=== PATIENT | female | born 1985 | race Caucasian/White ===

== ENCOUNTER 2022-03-13 10:58 | Emergency (ER) | payer OTHER, SELFPAY ==
[2022-03-13] VITALS (107 sets, daily range): BP systolic 108–138; BP diastolic 59–80; PULSE 41–52; RESP 0–28; TEMP 36.8; O2SAT 96–100
--- NOTE | 2022-03-13 11:00 | RT.EKG_ITS ---
APPROVED REPORT Exam: Resting ECG Reason for Exam: chest pressure Patient Location: E HR:46 bpm ECG Measurements Heart Rate 46 AXIS PA 124 P 46 QRSd 134 QRS 31 QT 504 T 30 QTc 443 Conclusion Sinus bradycardia...rate< 60 Nonspecific intraventricular conduction delay...QRSd >115mS, not LBBB/RBBB Abnrm R prog, consider ASMI or lead placement...Q >30mS, diminished R, V1-V2 no STEMI I have reviewed and interpreted ECG and agree with software generated interpretation.
--- NOTE | 2022-03-13 11:27 | W.ED.GENAD ---
Discharge Plan Disposition Patient Disposition: HOME Condition: Stable Discharge Details Clinical Impression: Hypokalemia, Adenoma of pituitary Primary Care Provider: Unknown,Unknown ED Provider: Padmini Chiu Discharge Instructions Instructions: Hypokalemia (ED), Pituitary Adenoma (ED) Additional Instructions: Today the potassium was in your blood is very low. Please eat foods with high potassium over the next few days. Also take potassium supplement. Please get in with a primary care provider to follow-up with the labs we have drawn today including prolactin and cortisol level and thyroid panel within the next 1 to 2 weeks, the sooner the better. I spoke with Dr. England with [facility] neurosurgery and their office should give you a call to follow-up and make an appointment. If you do not hear from them within the next week please call to make an appointment. Please return to the ER for any worsening numbness tingling, any worsening neurological symptoms, confusion, Chest pain, lightheadedness, headache not relieved by Tylenol or ibuprofen, or concerns. You are given 50 mg hydrocortisone the IV here today for pending possible low cortisol level. Please discuss this with the primary care provider that you see. Referrals: Pily White DO [OSTEOPATHIC DOCTOR] - 1 week Ni Olguin MD [ [facility] STAFF PHYSICIAN] - 1 week Gurdeep England [ NON-[facility] STAFF PHYSICIAN] - 2 weeks (Please call for follow up appointment) Discharge Data Discharge Date/Time-TO BE ENTERED AT DEPARTURE: 03/13/22 20:16 Medical Decision Making <FRANCESCO Padilla - Last Filed: 03/27/22 11:25> Patient is a pleasant 36 year old history with c/c of chest discomfort, facial tingling, loss of taste, intermittent hand/feet swelling. States swelling began 1 to 2 weeks ago has been quite intermittent with no identifiable exacerbating etiology. She states that yesterday she began having this chest discomfort, not exertionally based, facial tingling and loss of taste. She denies any shortness of breath. Also reports yesterday she began having nausea with 1 episode of small amount of emesis. Has had poor p.o. intake for the past 24 to 48 hours associated with nausea. Denies any personal or family history of cardiac disease. Patient reports that she was diagnosed with benign pituitary adenoma about 6 years ago when she was residing in [place]. Reports that she had a transsphenoidal resection. Pelvic patient had multiple surgical interventions that she did have some postoperative bleeding but when patient got over the initial complications has done well since. She has not needed any hormonal supplementation. She did not follow-up a primary care in this area. States that she is experiencing at this time is very similar to when she had the pituitary adenoma diagnosed last time. Patient is status post tubal ligation, she denies status. She denies any known sick contacts. No recent travel. On exam, patient appears nontoxic. She is bradycardic with a heart rate of 48. Patient does not know her baseline heart rate but feels that it to be normal. She reports that when she had her previous pituitary adenoma she was tachycardic. She denies any palpitations. Her lungs are clear. Assessment bradycardia, normal sinus rhythm with no murmurs rubs or gallops. Her neurologic exam is intact at this time. Her sensation in her face seems to be intact although she feels that the unusual compared to her baseline tingly. No nuchal rigidity, patient does not appear systemically ill. She denies any tick bites but does have multiple areas of bug bites on her lower extremities. Lungs are clear. No swelling or calf tenderness appreciated at this time. With the patient's history, I did consider potential recurrence of her pituitary adenoma. Touch base with radiologist who recommended noncontrast head CT at this time with possible for MR to look further at the pituitary as indicated. Also obtain chest x-ray with her chest discomfort as well as baseline labs. EKG was obtained and reviewed by Dr. Fallon. Patient is in a sinus bradycardic rhythm with a heart rate of 46. Otherwise, no acute ischemic pathology. With the heart rate change as well as her diffuse constitutional symptoms, also considered potential tickborne illness Labs reviewed. CBC reveals no leukocytosis and stable H&H. CMP concerning for critically low potassium of 2.8. Patient reports that hypokalemia is normal for her. Replaced with 40 mEq p.o. and 20 IV. TSH within normal limits, troponin within normal limits. Given the length of time patient been having symptoms, I do not feel that repeat troponin is warranted at this time. Patient is negative for COVID. Contacted by radiologist who advised CT head is concerning for a 11 x 12 mm mass in the sella turcica and recommends MRI. I discussed these recommendations with the patient who is in agreement. At the end of my shift, care transition to Marcela Mackenzie NP with MRI pending. Once MRI has been completed, plan for patient images to be pushed to [facility] and consult with neurosurgery. Concerned that the patient continues to be bradycardic, endorses headache and returning symptoms associated with this pituitary adenoma. <Padmini Chiu NP - Last Filed: 03/13/22 22:44> Patient is a pleasant 36 year old history with c/c of chest discomfort, facial tingling, loss of taste, intermittent hand/feet swelling. States swelling began 1 to 2 weeks ago has been quite intermittent with no identifiable exacerbating etiology. She states that yesterday she began having this chest discomfort, not exertionally based, facial tingling and loss of taste. She denies any shortness of breath. Also reports yesterday she began having nausea with 1 episode of small amount of emesis. Has had poor p.o. intake for the past 24 to 48 hours associated with nausea. Denies any personal or family history of cardiac disease. Patient reports that she was diagnosed with benign pituitary adenoma about 6 years ago when she was residing in [place]. Reports that she had a transsphenoidal resection. Pelvic patient had multiple surgical interventions that she did have some postoperative bleeding but when patient got over the initial complications has done well since. She has not needed any hormonal supplementation. She did not follow-up a primary care in this area. States that she is experiencing at this time is very similar to when she had the pituitary adenoma diagnosed last time. Patient is status post tubal ligation, she denies status. She denies any known sick contacts. No recent travel. On exam, patient appears nontoxic. She is bradycardic with a heart rate of 48. Patient does not know her baseline heart rate but feels that it to be normal. She reports that when she had her previous pituitary adenoma she was tachycardic. She denies any palpitations. Her lungs are clear. Assessment bradycardia, normal sinus rhythm with no murmurs rubs or gallops. Her neurologic exam is intact at this time. Her sensation in her face seems to be intact although she feels that the unusual compared to her baseline tingly. No nuchal rigidity, patient does not appear systemically ill. She denies any tick bites but does have multiple areas of bug bites on her lower extremities. Lungs are clear. No swelling or calf tenderness appreciated at this time. With the patient's history, I did consider potential recurrence of her pituitary adenoma. Touch base with radiologist who recommended noncontrast head CT at this time with possible for MR to look further at the pituitary as indicated. Also obtain chest x-ray with her chest discomfort as well as baseline labs. EKG was obtained and reviewed by Dr. Fallon. Patient is in a sinus bradycardic rhythm with a heart rate of 46. Otherwise, no acute ischemic pathology. With the heart rate change as well as her diffuse constitutional symptoms, also considered potential tickborne illness Labs reviewed. CBC reveals no leukocytosis and stable H&H. CMP concerning for critically low potassium of 2.8. Patient reports that hypokalemia is normal for her. Replaced with 40 mEq p.o. and 20 IV. TSH within normal limits, troponin within normal limits. Given the length of time patient been having symptoms, I do not feel that repeat troponin is warranted at this time. Patient is negative for COVID. Contacted by radiologist who advised CT head is concerning for a 11 x 12 mm mass in the sella turcica and recommends MRI. I discussed these recommendations with the patient who is in agreement. At the end of my shift, care transition to Marcela Mackenzie NP with MRI pending. Once MRI has been completed, plan for patient images to be pushed to [facility] and consult with neurosurgery. Concerned that the patient continues to be bradycardic, endorses headache and returning symptoms associated with this pituitary adenoma. 1739: [place]: Care assumed from provider ( Apoorva MAYA) Please see their initial HPI, PE, and documentation. Discussed patient details and case and pending workup and disposition. Patient is hemodynamically stable, and alert and oriented. At the time of signout awaiting MRI results. We will have images pushed to [facility] and consult with neurology. 1815: [facility] Transfer [facility] Called to speak with Oncology/Neurology. 1905: Spoke with Dr. England with neurosurgery regarding patient case and details he recommends checking a cortisol level, prolactin thyroid panel including a T3-T4 and an endocrine panel. If cortisol level is low he recommends giving 50 mg of hydrocortisone. His office will follow up with patient he recommends yearly MRI for 5 years. Discussed recommendations with patient who verbalized understanding. Discussed home care and strict return instructions. Patient remained hemodynamically stable throughout the remainder of her stay. She was placed on a care management follow-up list for PCP appointment this week ideally for follow-up on lab results and to ensure neurosurgery involvement and follow-up. This text was generated using [employer] system, please disregard any oddities of phrase or misspellings. Imaging Data Radiologic Study: Imaging: MRI Radiologist's impression: FINDINGS: Brain: No restricted diffusion bright brain signal abnormality. No shift. No hemorrhage. No mass. No mass effect. No acute territorial infarction. White matter signal is normally preserved. Brainstem is of normal size and signal. Skull base arterial flow voids appear normal. Pituitary is distorted by a nearly circumscribed infiltrative T1 isointense to jefferson, FLAIR isointense to jefferson matter, and T2 mostly isointense to jefferson matter multilobulated lesion entering the posterior sphenoid sinus and upper clivus. There is a dural component which is laid over the posterior planum of the sphenoid sagittal image 74 series 59338. This is difficult to accurately measure due to heterogeneity of signal but probably extends about 29 mm in AP dimension, 20 mm transverse, and around 24 mm craniocaudad. Pituitary gland is definable on thin cut post-contrast series 39189, measuring about 6.5 mm in height and around 8 mm diameter between coronal images 113-114. This lesion enhances in an intermediate and mildly heterogeneous fashion. By CT there is no chondroid element, or ground-glass opacity to suggest fibrous dysplasia. This might be either macroadenoma or meningioma. Visualized orbits appear normal. No abnormal enhancement of the brain or meninges. Optic chiasm abuts the left suprasellar portion of the lesion sagittal image 70, coronal image 110. The pituitary stalk remains midline around the same coronal image. Cerebral ventricles: Normal. No ventriculomegaly. Bones/joints: Unremarkable. Paranasal sinuses: Obstructeda FLAIR and T2 bright secretion left sphenoid chamber. No acute sinusitis. Mastoid air cells: Normal as visualized. No mastoid effusion. Orbital cavities: Unremarkable. Soft tissues: Unremarkable. IMPRESSION: The central skull base mildly to moderately enhancing lesion infiltrates the posterior sphenoid bone, upper clivus, and sella turcica with distortion of the pituitary gland, gland separable from the same. Macroadenoma or meningioma are the prime differential points, the lesion being relatively isointense to jefferson matter on all pulses with a dural component at the planum of the sphenoid. Thank you for allowing us to participate in the care of your patient. Lab Data Lab results reviewed: Yes I reviewed the patient's lab results. Labs: Laboratory Tests Range/Units 03/13/22 03/13/22 03/13/22 12:05 12:07 12:07 WBC (4.4-10.8) 10^3/uL RBC (3.93-5.22) 10^6/uL Hgb (11.2-15.7) g/dL Hct (36.0-46.0) % MCV (80-95) fL MCH (27.0-33.0) pg MCHC (32.0-36.0) % RDW (11.7-14.6) % Plt Count (130-400) 10^3/uL MPV (8.0-11.0) fL Immature Gran % Neutrophils % Lymphocytes % Monocytes % Eosinophils % Basophils % Nucleated RBC % (0.0-0.3) % Absolute Neutrophils (1.2-6.7) 10^3/uL Absolute Lymphocytes (1.2-3.4) 10^3/uL Absolute Monocytes (0.1-0.8) 10^3/uL Absolute Eosinophils (0.0-0.7) 10^3/uL Absolute Basophils (0.0-0.2) 10^3/uL Sodium (136-145) mmol/L 140 Potassium (3.5-5.1) mmol/L 2.8 L* Chloride (98-107) mmol/L 99 Carbon Dioxide (21.0-32.0) mmol/L 32.8 H Anion Gap (3-11) mmol/L 8.2 BUN (7-18) mg/dL 12 Creatinine (0.55-1.02) mg/dL 0.8 Estimated GFR/1.73 m2 (mL/min/1.73m2) >= 60.00 Glucose (74-106) mg/dL 104 Calcium (8.5-10.1) mg/dL 8.6 Magnesium (1.8-2.4) mg/dL 2.4 Total Bilirubin (0.2-1.0) mg/dL 0.8 AST (15-37) U/L 26 ALT (14-59) U/L 49 Alkaline Phosphatase (46-116) U/L 54 Troponin I (<or=60) ng/L < 50 Total Protein (6.4-8.2) g/dL 7.3 Albumin (3.4-5.0) g/dL 3.5 TSH (0.36-3.74) uIU/mL 0.42 Urine Color (Yellow) Urine Clarity (Clear) Urine pH (5-8) Ur Specific [place] (1.005-1.025) Urine Protein (Negative) mg/dL Urine Ketones (Negative) mg/dL Urine Blood (Negative) Urine Nitrite (Negative) Urine Bilirubin (Negative) Urine Urobilinogen (Up TO 0.2) EU/dL Ur Leukocyte Esterase (Negative) Urine RBC (0-2) HPF Urine WBC (0-5) HPF Ur Epithelial Cells (Negative) HPF Urine Crystals (Negative) HPF Urine Bacteria (Negative) HPF Urine Casts (Negative) LPF Urine Mucus (Negative) Ur Culture Indicated? Urine Glucose (Negative) mg/dL COVID-19 Source Not Applicable SARS-CoV-2 (PCR) (Negative) Negative Influenza Type A (PCR) (Negative) Negative Influenza Type B (PCR) (Negative) Negative RSV (PCR) (Negative) Negative Range/Units 03/13/22 03/13/22 12:07 12:15 WBC (4.4-10.8) 10^3/uL 9.95 RBC (3.93-5.22) 10^6/uL 4.66 Hgb (11.2-15.7) g/dL 13.8 Hct (36.0-46.0) % 40.2 MCV (80-95) fL 86 MCH (27.0-33.0) pg 29.6 MCHC (32.0-36.0) % 34.3 RDW (11.7-14.6) % 12.3 Plt Count (130-400) 10^3/uL 320 MPV (8.0-11.0) fL 10.3 Immature Gran % 0.7 Neutrophils % 79.3 Lymphocytes % 12.1 Monocytes % 7.8 Eosinophils % 0.0 Basophils % 0.1 Nucleated RBC % (0.0-0.3) % 0.0 Absolute Neutrophils (1.2-6.7) 10^3/uL 7.89 H Absolute Lymphocytes (1.2-3.4) 10^3/uL 1.20 Absolute Monocytes (0.1-0.8) 10^3/uL 0.78 Absolute Eosinophils (0.0-0.7) 10^3/uL 0.00 Absolute Basophils (0.0-0.2) 10^3/uL 0.01 Sodium (136-145) mmol/L Potassium (3.5-5.1) mmol/L Chloride (98-107) mmol/L Carbon Dioxide (21.0-32.0) mmol/L Anion Gap (3-11) mmol/L BUN (7-18) mg/dL Creatinine (0.55-1.02) mg/dL Estimated GFR/1.73 m2 (mL/min/1.73m2) Glucose (74-106) mg/dL Calcium (8.5-10.1) mg/dL Magnesium (1.8-2.4) mg/dL Total Bilirubin (0.2-1.0) mg/dL AST (15-37) U/L ALT (14-59) U/L Alkaline Phosphatase (46-116) U/L Troponin I (<or=60) ng/L Total Protein (6.4-8.2) g/dL Albumin (3.4-5.0) g/dL TSH (0.36-3.74) uIU/mL Urine Color (Yellow) Yellow Urine Clarity (Clear) Clear Urine pH (5-8) 7.0 Ur Specific [place] (1.005-1.025) 1.025 Urine Protein (Negative) mg/dL 30 H Urine Ketones (Negative) mg/dL Negative Urine Blood (Negative) Negative Urine Nitrite (Negative) Negative Urine Bilirubin (Negative) Negative Urine Urobilinogen (Up TO 0.2) EU/dL 1.0 H Ur Leukocyte Esterase (Negative) Small H Urine RBC (0-2) HPF Negative Urine WBC (0-5) HPF 0-2 Ur Epithelial Cells (Negative) HPF Moderate Urine Crystals (Negative) HPF Negative Urine Bacteria (Negative) HPF Rare Urine Casts (Negative) LPF 0-2 Hyaline Urine Mucus (Negative) Trace Ur Culture Indicated? No/Sq. Contamination Urine Glucose (Negative) mg/dL Negative COVID-19 Source SARS-CoV-2 (PCR) (Negative) Influenza Type A (PCR) (Negative) Influenza Type B (PCR) (Negative) RSV (PCR) (Negative) HPI <FRANCESCO Padilla - Last Filed: 03/27/22 11:25> General Date/Time Provider Initiated Documentation: 03/13/22 11:27. Limitations to Documentation: no limitations. Information obtained by: patient and RN notes reviewed. History of Present Illness 36 year old F presents to the emergency department with the chief complaint of headaches, intermittent extremity swelling, fatigue, chest pressure, described as moderate and similar to prior episodes (feels like when she had pituitary tumor historically), Quality is described as aching (intermittent), and is localized to the head, chest and abdomen. Patient started experiencing this day(s) and it has been intermittent. No relieving factors improve symptom(s), No exacerbating factors reported . Patient notes chest pain, headaches, loss of appetite, malaise and nausea/vomiting; denies cough, diaphoresis, fever/chills, rash and shortness of breath. Patient did receive the following treatments prior to arrival, none Related Data Allergies Allergy/AdvReac Type Severity Reaction Status Date / Time No Known Allergies Allergy Unverified 03/13/22 19:04 General Stated Complaint: Chest Pain FELA: 3 Review of Systems <FRANCESCO Padilla - Last Filed: 03/27/22 11:25> Constitutional Constitutional: Reports as per HPI, Denies chills, Reports fatigue, Denies fever(s), Denies frequent falls, Reports headache(s) and Denies weakness Eyes Eyes: Reports as per HPI, Denies blurry vision and Denies change in vision ENT Ears, Nose, Mouth, and Throat: Denies vertigo, Reports headache(s) and Denies neck pain Cardiovascular Cardiovascular: Reports as per HPI, Denies lightheadedness, Denies radiating jaw, neck or arm pain, Denies dyspnea and Denies dyspnea on exertion Respiratory Respiratory: Reports as per HPI, Denies chest congestion, Denies cough, Denies dyspnea and Denies dyspnea on exertion Gastrointestinal Gastrointestinal: Reports as per HPI, Denies abdominal pain and Denies change in bowel habits Musculoskeletal Musculoskeletal: Reports as per HPI, Denies back pain, Denies myalgias, Denies muscle cramps, Denies neck pain and Denies numbness Integumentary/Breasts Skin/Breast: Reports as per HPI and Denies rash Neurologic Neurologic: Reports as per HPI, Denies abnormal movements, Denies abnormal speech, Denies behavioral changes, Denies confusion, Denies vertigo, Denies frequent falls, Reports headache(s), Denies localized weakness, Denies numbness, Denies sensory deficit and Denies weakness Psychiatric Psychiatric: Denies behavioral changes and Denies confusion Endocrine Endocrine: Reports fatigue PFSH <FRANCESCO Padilla - Last Filed: 03/27/22 11:25> All Active Problems (Updated 03/13/22 @ 19:43 by Padmini Chiu NP) Hypokalemia (Acute) Adenoma of pituitary (Acute) Social History Smoking risk assessment performed?: No Exam <FRANCESCO Padilla - Last Filed: 03/27/22 11:25> Const General: cooperative, healthy appearing, comfortable, no acute distress, well developed and well groomed Nutritional Appearance: average body habitus and well nourished Orientation: alert, awake and oriented x3 HENMT Head: normal to inspection, no palpable skull fracture, normocephalic and atraumatic Ears: hearing grossly normal bilaterally, external ears normal and TM's normal bilaterally General nose exam: external nose normal Mouth: oral mucosae normal and moist mucous membranes Throat: posterior oropharynx normal Eyes General: appearance normal, both eyes and all related structures Visual Almeida: normal visual almeida by confrontation Alignment and Position: alignment normal Periorbital: periorbital findings normal Eyelids: eyelids normal Sclera: sclerae normal Cornea: corneas normal Pupils: PERRL EOM: EOM intact bilaterally Neck Neck: normal visual inspection, full ROM, no lymphadenopathy and no meningeal signs Resp Effort & Inspection: normal respiratory effort, able to speak in complete sentences and no respiratory distress Auscultation: clear to auscultation bilaterally, no rales, no rhonchi and no wheezes Cardio Rate: regular rate Rhythm: regular rhythm Heart Sounds: S1 normal and S2 normal GI Inspection: normal to inspection and non-distended Palpation: soft, no hepatosplenomegaly, not firm, no guarding, not rigid and nontender Percussion: normal to percussion Auscultation: normal bowel sounds Back/Spine/Pelvis Cervical Spine: normal cervical lordosis and cervical ROM normal Skin General skin exam: no rashes or lesions noted Neuro General: patient alert, patient awake and patient oriented x3 Cranial Nerves: CN's II-XI intact bilaterally Cognition: normal cognition Speech: speech normal Gait: normal gait Motor: muscle tone normal throughout, strength 5/5 throughout, no pronator drift, no movement abnormalities noted and no fasciculations Sensory Exam: no sensory deficits noted Coordination: [id number] test normal and [id number] test normal Extrem General: normal to inspection, capillary refill normal, no pedal edema and no calf tenderness Psych Appearance: grossly normal and well kempt Mental Status: mental status grossly normal Speech and Movement: speech and movement normal Course <FRANCESCO Padilla - Last Filed: 03/27/22 11:25> Vital Signs Vital signs: Vital Signs Temperature 36.8 C 03/13/22 11:06 Pulse 48 L 03/13/22 11:06 Respiratory Rate 18 03/13/22 11:06 Blood Pressure 130/73 03/13/22 11:06 Pulse Oximetry 99 03/13/22 11:06 Temperature 36.8 C 03/13/22 11:06 Temperature Source Temporal Artery Scan 03/13/22 11:06 Pulse 48 L 03/13/22 11:06 Respiratory Rate 18 03/13/22 11:06 Blood Pressure 130/73 03/13/22 11:06 Blood Pressure Position Sitting 03/13/22 11:06 Pulse Oximetry 99 03/13/22 11:06 Oxygen Delivery Method Room Air 03/13/22 11:06 Oxygen Flow Rate 0 03/13/22 11:06 Sign Out <FRANCESCO Padilla - Last Filed: 03/27/22 11:25> Sign Out Data: Sign Out Comment: Care transition to Marcela Mackenzie NP with MRI brain pending. On CT, patient was noted to have a possible pituitary mass. Patient has had history of pituitary adenoma which was surgically resected about 6 years ago in [place]. Patient is hypokalemic with a potassium of 2.8, was given 40 p.o. and 20 IV. Bradycardic in the 40s, unknown what patient's baseline is. Last updated by Apoorva Gordon PA at 03/13/22 17:30
--- NOTE | 2022-03-13 11:45 | DI.CT_ITS ---
Exam(s) CT HEAD WO EXAM: CT HEAD WO CLINICAL HISTORY: hx of pituitary adenoma, GARCES. TECHNIQUE: Imaging Protocol: Axial computed tomography images with coronal and sagittal reformatted images were created and reviewed COMPARISON: CR XR CHEST 2V PA LATERAL from 03/13/2022 FINDINGS: There are no skull fractures nor fluid in the visualized paranasal sinuses. There is a large mass in the sella and with erosion through the floor into the sphenoid sinus,. Ther e is also thinning of the dorsum sella. The mass extends into the suprasellar cistern. Remainder of the brain appears unremarkable. No ventriculomegaly. No shift. IMPRESSION: Pituitary fossa mass as described above. Dedicated pituitary fossa MRI is recommend RADIATION DOSE DELIVERED: 618.8mGy.cm Total DLP DATA REPOSITORY: All CT scans at this facility are submitted to the National Radiology Data Registry (NRDR) Dose Index Registry (DIR) with the [employer] (ACR). RADIATION OPTIMIZATION: All CT scans at this facility use at least one of these dose optimization te chniques: automated exposure control; mA and/or kV adjustment per patient size (includes targeted exa ms where dose is matched to clinical indication); or iterative reconstruction.
--- NOTE | 2022-03-13 11:45 | DI.RAD_ITS ---
Exam(s) XR CHEST 2V PA LATERAL EXAM: XR CHEST 2V PA LATERAL CLINICAL HISTORY: CP. TECHNIQUE: 2D digital imaging was performed. COMPARISON: No exams were available for comparison FINDINGS: 2 views: Heart size is normal. The mediastinum is not widened. Lungs are clear. No infiltrates nor pleural effusions. IMPRESSION: No acute pulmonary findings. DATA REPOSITORY: RADIATION DOSE DELIVERED:
[2022-03-13 12:18] LABS: Abs Immature Grans 0.07 10^3/uL (0.0-0.06); Absolute Basophil Count 0.01 10^3/uL (0.0-0.2); Absolute Monocyte Count 0.78 10^3/uL (0.1-0.8); Absolute Neutrophil Count 7.89 10^3/uL (1.2-6.7); Basophils % 0.1; HCT 40.2 % (36.0-46.0); HGB 13.8 g/dL (11.2-15.7); Immature Grans % 0.7; Lymphocytes % 12.1; MCH 29.6 pg (27.0-33.0); MCHC 34.3 % (32.0-36.0); MCV 86 fL (80-95); MPV 10.3 fL (8.0-11.0); Monocytes % 7.8; Neutrophils % 79.3; Platelet Count 320 10^3/uL (130-400); RBC 4.66 10^6/uL (3.93-5.22); RDW 12.3 % (11.7-14.6); RDW-SD 38.3 fL; WBC 9.95 10^3/uL (4.4-10.8)
[2022-03-13 12:27] LABS: Bilirubin Negative (Negative); Blood Negative (Negative); Clarity Clear (Clear); Glucose Negative (Negative); Ketones Negative (Negative); Leukocyte Esterase Small (Negative); Nitrite Negative (Negative); Specific Gravity 1.025 (1.005-1.025)
[2022-03-13] MEDS: Normal Saline 1,000 ML 1000 ML IV (12:32)
[2022-03-13 12:37] LABS: ALT 49 U/L (14-59); AST 26 U/L (15-37); Albumin 3.5 g/dL (3.4-5.0); Alkaline Phosphatase 54 U/L (46-116); Anion Gap 8.2 mmol/L (3-11); BUN 12 mg/dL (7-18); Bilirubin, Total 0.8 mg/dL (0.2-1.0); CO2 32.8 mmol/L (21.0-32.0); CREATININE 0.8 mg/dL (0.55-1.02); Calcium 8.6 mg/dL (8.5-10.1); Chloride 99 mmol/L (98-107); Glucose 104 mg/dL (74-106); Magnesium 2.4 mg/dL (1.8-2.4); Sodium 140 mmol/L (136-145); Total Protein 7.3 g/dL (6.4-8.2); Troponin I < 50 ng/L (<or=60)
[2022-03-13 12:38] LABS: Bacteria Rare HPF (Negative); C & S Indicated? No/Sq. Contamination; Casts 0-2 Hyaline LPF (Negative); Crystals Negative HPF (Negative); Epithelial Cells Moderate HPF (Negative); Mucus Trace (Negative); RBC Negative HPF (0-2); WBC 0-2 HPF (0-5)
[2022-03-13 12:39] LABS: Potassium 2.8 mmol/L (3.5-5.1)
[2022-03-13] MEDS: Ondansetron 4 MG/2 ML VIAL IVP (12:41)
[2022-03-13 12:48] LABS: TSH (W/Ref FT4) 0.42 uIU/mL (0.36-3.74)
--- NOTE | 2022-03-13 13:15 | DI.MRI_ITS ---
Exam(s) MR BRAIN PITUITARY WO/W EXAM: MR BRAIN PITUITARY WO/W CLINICAL HISTORY: mass, facial tingling, taste change, swelling TECHNIQUE: Multiplanar multisequence MRI of the brain was performed. Both noninfused and contrast i nfused sequences were performed. IV Contrast injected was cc Dotarem. COMPARISON: No exams were available for comparison FINDINGS: CEREBRAL PARENCHYMA: No evidence of intracranial hemorrhage, mass effect nor shift of midline structu re. No extraaxial fluid collections. Ventricles are not enlarged nor shifted. There is no significant focal signal abnormality in the cerebellar hemispheres nor within the [place], m idbrain, and thalami. There is no abnormal signal abnormality in the periventricular white matter. However, there is a large heterogeneous mass occupying entire sella turcica with extension into the s phenoid sinus, clivus-basiocciput and with extension into the cavernous sinuses. Mass extends into t he suprasellar cistern but not to the level of the optic chiasm. Is difficult to identify the pituit west gland separate from this mass. This mass measures approximately 3.4 cm wide by 2.4 cm craniocaud al by 3.2 cm AP FLOW VOIDS: The expected flow void are noted. No evidence of obvious aneurysm nor obvious vascular ma lformation. PARANASAL SINUSES: Mucosal thickening is noted in both maxillary sinuses without fluid levels therein . Frontal sinuses are clear as are the anterior ethmoidal air cells. The sphenoid sinus is filled b y this mass ORBITS: Most anterior aspect mass extends above the level of the orbital foramens. No extension lane g the optic nerves. IMPRESSION: 1. Large mass having epicenter in pituitary fossa with extension superiorly, inferiorly into the sphe noid sinus and clivus, laterally into the both cavernous sinuses, and superiorly into the suprasellar cistern (but not to the level of the optic chiasm). This is a complex heterogeneous mass which does enhance following contrast injection. There appears to be some involvement of the cavernous sinuses bilaterally. Apparently this patient has had previous remote trans-sphenoidal surgery for macro mary noma. First consideration is for recurrence of the original neoplasm. 2. No other intracranial findings. No ventriculomegaly. No evidence of acute ischemic event nor hem orrhage. DATA REPOSITORY:
[2022-03-13 13:38] LABS: COVID-19 PCR Negative (Negative); Influenza A PCR Negative (Negative); Influenza B PCR Negative (Negative); RSV PCR Negative (Negative)
[2022-03-13] MEDS: POTASSIUM CHLORIDE 20 MEQ/100 ML BAG 50 MEQ IVPB (13:42)
[2022-03-13] MEDS: Potassium Chloride 20 MEQ TABCR 40 MEQ PO (13:42)
[2022-03-13] MEDS: Normal Saline Flush 10 ML SYR IVP (15:54)
--- NOTE | 2022-03-13 17:20 | DI.VRAD_ITS ---
PROCEDURE INFORMATION: Exam: MR Head Without and With Contrast Exam date and time: 03/13/2022 3:46 PM Age: 36 years old Clinical indication: Other: Facial tingling, taste change, swelling; Prior surgery; Surgery type: Pituitary TECHNIQUE: Imaging protocol: Magnetic resonance imaging of the head without and with contrast. Contrast material: DOTAREM; Contrast volume: 16 ml; Contrast route: INTRAVENOUS (IV); COMPARISON: CT HEAD WO 03/13/2022 12:58 PM FINDINGS: Brain: No restricted diffusion bright brain signal abnormality. No shift. No hemorrhage. No mass. No mass effect. No acute territorial infarction. White matter signal is normally preserved. Brainstem is of normal size and signal. Skull base arterial flow voids appear normal. Pituitary is distorted by a nearly circumscribed infiltrative T1 isointense to jefferson, FLAIR isointense to jefferson matter, and T2 mostly isointense to jefferson matter multilobulated lesion entering the posterior sphenoid sinus and upper clivus. There is a dural component which is laid over the posterior planum of the sphenoid sagittal image 74 series 60997. This is difficult to accurately measure due to heterogeneity of signal but probably extends about 29 mm in AP dimension, 20 mm transverse, and around 24 mm craniocaudad. Pituitary gland is definable on thin cut post-contrast series 44098, measuring about 6.5 mm in height and around 8 mm diameter between coronal images 113-114. This lesion enhances in an intermediate and mildly heterogeneous fashion. By CT there is no chondroid element, or ground-glass opacity to suggest fibrous dysplasia. This might be either macroadenoma or meningioma. Visualized orbits appear normal. No abnormal enhancement of the brain or meninges. Optic chiasm abuts the left suprasellar portion of the lesion sagittal image 70, coronal image 110. The pituitary stalk remains midline around the same coronal image. Cerebral ventricles: Normal. No ventriculomegaly. Bones/joints: Unremarkable. Paranasal sinuses: Obstructeda FLAIR and T2 bright secretion left sphenoid chamber. No acute sinusitis. Mastoid air cells: Normal as visualized. No mastoid effusion. Orbital cavities: Unremarkable. Soft tissues: Unremarkable. IMPRESSION: The central skull base mildly to moderately enhancing lesion infiltrates the posterior sphenoid bone, upper clivus, and sella turcica with distortion of the pituitary gland, gland separable from the same. Macroadenoma or meningioma are the prime differential points, the lesion being relatively isointense to jefferson matter on all pulses with a dural component at the planum of the sphenoid. Dictated and Authenticated by: Satya Ball MD. Ordering:ZAHRA Guerin MD
--- NOTE | 2022-03-13 19:45 | NUR.NOTE ---
Referral to Care Management to establish pcp within the next week or two for Pituiatary tumor, hypokalemia. Sooner would be better than later.Nursing Note:
[2022-03-13] MEDS: Hydrocortisone SOD SUC. 100 MG VIAL 50 MG IVP (20:04)
[2022-03-13 23:34] LABS: LH 3.3 mIU/mL (See Note)
[2022-03-13 23:37] LABS: Prolactin 1.5 ng/mL (See Note)
[2022-03-13 23:39] LABS: FSH 5.3 mIU/mL (See Note)
--- NOTE | 2022-03-14 09:19 | NUR.NOTE ---
Nursing Note: Dr. England , Neurosurgery [facility], called for the phone numbers of patient and contacts. I gave him this information. Gala Bang nursing animal trainer supervisor aware.
[2022-03-14 11:05] LABS: Lyme Ab w Rflx to Lyme Confirm Negative (Negative)
--- NOTE | 2022-03-14 11:38 | PDOC.ERCMACT ---
- If Service Date Differs Date of service: 03/14/22 Time of Service: 11:38 Care Management Activity Note Amy is seen in the ED for hypokalemia and a pituitary adenoma. At the request of ED provider, HIRAL coordinates a referral to SERGE Lindsay, of [facility], on-call provider, to assist Amy in obtaining a follow up appointment and in establishing care with a PCP. She has [employer] for insurance.
[2022-03-14 17:44] LABS: T3,Free 2.5 pg/mL (2.8-5.3)
[2022-03-15 00:51] LABS: Anaplasma phagocytophilum Negative (Negative); B. miyamotoi PCR Negative (Negative); Babesia divergens/MO-1 Negative (Negative); Babesia duncani Negative (Negative); Babesia microti Negative (Negative); Ehrlichia chaffeensis Negative (Negative); Ehrlichia ewingii/canis Negative (Negative); Ehrlichia muris eauclairensis Negative (Negative)
[2022-03-17 17:53] LABS: IGF-1, LC/MS, S 174 ng/mL (59-279); Z-score 0.67 SD
[2022-03-23 11:59] LABS: Misc Referral (MAYO) See Comments
== END 2022-03-13 20:16 | disposition home or self-care (01) ==
PROVIDERS: Physician Assistant; Emergency Provider Registered Nurse Emergency
DX: E87.6 Hypokalemia (principal); D35.2 Benign neoplasm of pituitary gland; R20.2 Paresthesia of skin; R51.9 Headache, unspecified; R07.9 Chest pain, unspecified; R07.89 Other chest pain; R43.9 Unspecified disturbances of smell and taste
CPT/HCPCS: 36415; 70553; 80053; 81025; 82530; 82533; 87637; 87798; 93005; 96361; 96365; 96366; 96375; 99284; 99285; 70450; 71046; 81003; 81015; 83001; 83002; 83735; 84146; 84305; 84436; 84443; 84481; 84484; 85025; 86618; 93010; J1720; J2405; J3480

== ENCOUNTER 2022-05-25 10:13 | Outpatient (REF) | payer OTHER, SELFPAY ==
[2022-05-25 12:04] LABS: Anion Gap 9.1 mmol/L (3-11); BUN 9 mg/dL (7-18); CO2 28.9 mmol/L (21.0-32.0); Calcium 9.5 mg/dL (8.5-10.1); Chloride 102 mmol/L (98-107); Estimated GFR 75.34 (mL/min/1.73m2); FREE T4 1.04 ng/dL (0.76-1.46); Glucose 86 mg/dL (74-106); Potassium 4.4 mmol/L (3.5-5.1); Sodium 140 mmol/L (136-145); TSH 1.43 uIU/mL (0.36-3.74)
[2022-05-25 20:21] LABS: Estradiol 146 pg/mL (See Note)
[2022-05-25 20:41] LABS: FSH 3.6 mIU/mL (See Note); LH 7.5 mIU/mL (See Note); Prolactin 4.7 ng/mL (See Note)
[2022-05-26 17:51] LABS: Adrenocorticotropic Hormone, P 77 pg/mL
[2022-05-31 17:16] LABS: IGF-1, LC/MS, S 279 ng/mL (59-279); Z-score 1.96 SD
[2022-06-05 17:26] LABS: 25-Hydroxy D Total 25 ng/mL; 25-Hydroxy D2 <4.0 ng/mL; 25-Hydroxy D3 25 ng/mL
== END 2022-05-25 10:14 | disposition home or self-care (01) ==
LOC: LBN 10:13
PROVIDERS: Visit Provider Student in an Organized Health Care Education/Training Program
DX: Z86.39 Personal history of other endocrine, nutritional and metabolic disease (principal)
CPT/HCPCS: 80048; 82306; 82533; 82024; 82670; 83001; 83002; 84146; 84305; 84439; 84443

== ENCOUNTER 2023-01-31 09:56 | Emergency (ER) | payer OTHER, SELFPAY ==
[2023-01-31 10:00] VITALS: BP 130/98; PULSE 100; RESP 15; TEMP 36.8; O2SAT 98
[2023-01-31 10:12] VITALS: RESP 15
[2023-01-31 10:22] LABS: Bilirubin Small (Negative); Blood Negative (Negative); Clarity Sl Cloudy (Clear); Glucose Negative (Negative); Ketones Trace mg/dL (Negative); Leukocyte Esterase Small (Negative); Nitrite Positive (Negative); Urobilinogen 0.2 mg/dL (Up to 0.2); pH 5.5 (5-8)
--- NOTE | 2023-01-31 10:30 | DI.CT_ITS ---
Exam(s) CT HEAD WO EXAM: CT HEAD WO CLINICAL HISTORY: hx of pituitary tumor with resection 04/04/22cameron. TECHNIQUE: Imaging Protocol: Axial computed tomography images with coronal and sagittal reformatted images were created and reviewed COMPARISON: CT CT HEAD WO from 03/13/2022 MR MR BRAIN PITUITARY WO/W from 03/13/2022 FINDINGS: Ventricles and Extra axial spaces: Normal in size and morphology for the patient's age. Hemorrhage: None. Cerebral parenchyma: Normal. Midline shift: None. Brainstem/Cerebellum: Normal. Calvarium: Normal. Visualized Paranasal sinuses: Small amount of lobulated material is seen in the sphenoid sinuses. Pr eviously noted pituitary mass extended into the sphenoid sinuses. The findings could represent simpl e mucous retention over residual or current mass is not excluded. No definite adjacent bony destruct ion. Previously noted destruction of the superior wall of the sphenoid sinuses are arm again noted. The sella is expanded but there is no visible sellar mass. Mastoids: Clear. Soft Tissues: Unremarkable. IMPRESSION: No acute intracranial process. Previously noted sellar expansion and erosion of the floor of the sella/sphenoid sinuses again noted. Small amount of material seen in the sphenoid sinuses which could represent mucous retention howev er is visual or current mass is not excluded. RADIATION DOSE DELIVERED: 620.34mGy.cm Total DLP DATA REPOSITORY: All CT scans at this facility are submitted to the National Radiology Data Registry (NRDR) Dose Index Registry (DIR) with the [employer] (ACR). RADIATION OPTIMIZATION: All CT scans at this facility use at least one of these dose optimization te chniques: automated exposure control; mA and/or kV adjustment per patient size (includes targeted exa ms where dose is matched to clinical indication); or iterative reconstruction.
[2023-01-31 10:56] LABS: Absolute Basophil Count 0.07 10^3/uL (0.0-0.2); Absolute Eosinophil Count 0.24 10^3/uL (0.0-0.7); Absolute Lymphocyte Count 2.87 10^3/uL (1.2-3.4); Absolute Monocyte Count 0.59 10^3/uL (0.1-0.8); Absolute Neutrophil Count 4.25 10^3/uL (1.2-6.7); Basophils % 0.9; HCT 38.7 % (36.0-46.0); HGB 12.6 g/dL (11.2-15.7); Immature Grans % 1.2; Lymphocytes % 35.3; MCH 28.3 pg (27.0-33.0); MCHC 32.6 % (32.0-36.0); MCV 87 fL (80-95); MPV 9.7 fL (8.0-11.0); Monocytes % 7.3; Neutrophils % 52.3; Platelet Count 399 10^3/uL (130-400); RBC 4.46 10^6/uL (3.93-5.22); RDW 12.8 % (11.7-14.6); RDW-SD 40.5 fL; WBC 8.12 10^3/uL (4.4-10.8)
[2023-01-31 11:00] LABS: Bacteria Few HPF (Negative); C & S Indicated? No/Sq. Contamination; Casts 0-2 Coarse Granular LPF (Negative); Crystals Negative HPF (Negative); Epithelial Cells Many HPF (Negative); Mucus Moderate (Negative); Other Cells Negative (Negative); RBC 0-2 HPF (0-2)
[2023-01-31 11:35] LABS: ALT 44 U/L (14-59); AST 17 U/L (15-37); Albumin 3.4 g/dL (3.4-5.0); Alkaline Phosphatase 97 U/L (46-116); Anion Gap 7.5 mmol/L (3-11); BUN 5 mg/dL (7-18); Bilirubin, Total 0.3 mg/dL (0.2-1.0); CO2 31.5 mmol/L (21.0-32.0); CREATININE 0.9 mg/dL (0.55-1.02); Calcium 8.8 mg/dL (8.5-10.1); Chloride 104 mmol/L (98-107); Estimated GFR 84.97 (mL/min/1.73m2); Glucose 102 mg/dL (74-106); Potassium 3.9 mmol/L (3.5-5.1); Sodium 143 mmol/L (136-145); TSH (W/Ref FT4) 1.52 uIU/mL (0.36-3.74); Total Protein 7.9 g/dL (6.4-8.2)
--- NOTE | 2023-01-31 12:09 | NUR.NOTE ---
Nursing Note: PT needs PCP follow up for parastegia & outpatient MRI. Leyda, ED
[2023-01-31 12:15] VITALS: BP 135/85; PULSE 74; RESP 16; TEMP 36.4; O2SAT 99
[2023-01-31 13:00] LABS: Epithelial Cells Moderate HPF (Negative); WBC 20-50 HPF (0-5)
[2023-01-31 13:01] LABS: Bacteria Moderate HPF (Negative); Crystals Negative HPF (Negative); Mucus Moderate (Negative); Other Cells Few Renal (Negative)
[2023-01-31 13:02] LABS: C & S Indicated? No/Sq. Contamination
--- NOTE | 2023-02-01 17:27 | W.ED.GENAD ---
Discharge Plan Disposition Patient Disposition: Home Discharge Details Clinical Impression: Dysuria Primary Care Provider: Nate Tariq ED Provider: Tanna Lozano Home Meds and New Rx's Prescriptions: New nitrofurantoin monohyd/m-cryst [Macrobid] 100 mg capsule 100 mg PO BID Qty: 10 0RF Rx Instructions: must administer with a meal/food Discharge Instructions Additional Instructions: Take antibiotics as prescribed Yogurt daily while on antibiotic Please call your primary care physician as you will likely need an appointment before your scheduled MRI and diagnostic blood work post pituitary adenoma Have given you prescription for Macrobid, this will treat a urinary tract infection, or pending urine culture at this time Please return immediately should you have new or worsening complaints Referrals: Nate Tariq MD [Primary Care Provider] - 2 days Discharge Data Discharge Date/Time-TO BE ENTERED AT DEPARTURE: 01/31/23 17:24 Medical Decision Making 37-year-old female with complex medical history including that of pituitary adenoma resection approximately year prior to arrival with intermittent recurrent symptoms CT brain does not show evidence of significant acute abnormality, 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 HPI Narrative: This 37-year-old female presents with report of paresthesias to face and urinary frequency and burning. She states she status post pituitary adenoma resection approximately year ago and she had paresthesias on her face. Denies any other neurological changes Sexually active monogamous with her . Denies any fever or chills. Denies any flank pain or chance of . States her symptoms have been present for the past several weeks intermittently. Related Data Home Medications Medication Instructions Recorded Confirmed nitrofurantoin 100 mg PO BID #10 caps 01/31/23 monohydrate/macrocrystals 100 mg capsule (Macrobid) Previous Rx's Medication Instructions Recorded nitrofurantoin 100 mg PO BID #10 caps 01/31/23 monohydrate/macrocrystals 100 mg capsule (Macrobid) Allergies Allergy/AdvReac Type Severity Reaction Status Date / Time No Known Allergies Allergy Unverified 01/31/23 10:04 General Stated Complaint: GenMedical FELA: 3 PFSH All Active Problems (Updated 01/31/23 @ 12:11 by FRANCESCO Ford) Dysuria (Acute) Social History Smoking/Tobacco Use Status: Never Smoking risk assessment performed?: Yes Alcohol Intake: never Drug use: Rarely Substance use type: does not use Do you feel safe at home: Yes Do you feel safe in your relationship?: Yes Exam Narrative Exam Narrative: Patient is calm and cooperative, alert and oriented, pupils equal round reactive to light and accommodation, extraocular muscles intact Lungs clear to auscultation, cardiac rate rhythm regular, no abdominal tenderness, no flank tenderness, no obvious rashes or lesions, alert and oriented x4, cranial nerves II through XII intact, no pronator drift, Course Vital Signs Vital signs: Vital Signs Temperature 36.8 C 01/31/23 10:00 Pulse 100 H 01/31/23 10:00 Respiratory Rate 15 01/31/23 10:00 Blood Pressure 130/98 H 01/31/23 10:00 Pulse Oximetry 98 01/31/23 10:00 Temperature 36.4 C 01/31/23 12:15 Pulse 74 01/31/23 12:15 Respiratory Rate 16 01/31/23 12:15 Respiratory Effort Normal 01/31/23 10:12 Respiratory Depth Normal 01/31/23 10:12 Respiratory Pattern Normal 01/31/23 10:12 Blood Pressure 135/85 01/31/23 12:15 Blood Pressure Position Sitting 01/31/23 10:00 Pulse Oximetry 99 01/31/23 12:15 Oxygen Delivery Method Room Air 01/31/23 10:00 Oxygen Flow Rate 0 01/31/23 10:00 Pain Level 0 01/31/23 10:00 Lab/Test Results Lab/Test Results: Laboratory Tests Range/Units 01/31/23 01/31/23 01/31/23 10:06 10:45 10:45 WBC (4.4-10.8) 10^3/uL 8.12 RBC (3.93-5.22) 10^6/uL 4.46 Hgb (11.2-15.7) g/dL 12.6 Hct (36.0-46.0) % 38.7 MCV (80-95) fL 87 MCH (27.0-33.0) pg 28.3 MCHC (32.0-36.0) % 32.6 RDW (11.7-14.6) % 12.8 Plt Count (130-400) 10^3/uL 399 MPV (8.0-11.0) fL 9.7 Immature Gran % 1.2 Neutrophils % 52.3 Lymphocytes % 35.3 Monocytes % 7.3 Eosinophils % 3.0 Basophils % 0.9 Nucleated RBC % (0.0-0.3) % 0.0 Absolute Neutrophils (1.2-6.7) 10^3/uL 4.25 Absolute Lymphocytes (1.2-3.4) 10^3/uL 2.87 Absolute Monocytes (0.1-0.8) 10^3/uL 0.59 Absolute Eosinophils (0.0-0.7) 10^3/uL 0.24 Absolute Basophils (0.0-0.2) 10^3/uL 0.07 Sodium (136-145) mmol/L 143 Potassium (3.5-5.1) mmol/L 3.9 Chloride (98-107) mmol/L 104 Carbon Dioxide (21.0-32.0) mmol/L 31.5 Anion Gap (3-11) mmol/L 7.5 BUN (7-18) mg/dL 5 L Creatinine (0.55-1.02) mg/dL 0.9 Est GFR (CKD-EPI 2020) (mL/min/1.73m2) 84.97 Glucose (74-106) mg/dL 102 Calcium (8.5-10.1) mg/dL 8.8 Magnesium (1.8-2.4) mg/dL 2.0 Total Bilirubin (0.2-1.0) mg/dL 0.3 AST (15-37) U/L 17 ALT (14-59) U/L 44 Alkaline Phosphatase (46-116) U/L 97 Total Protein (6.4-8.2) g/dL 7.9 Albumin (3.4-5.0) g/dL 3.4 TSH (0.36-3.74) uIU/mL 1.52 Urine Color (Yellow) Yellow Urine Clarity (Clear) Sl Cloudy Urine pH (5-8) 5.5 Ur Specific Sheridan (1.005-1.025) 1.020 Urine Protein (Negative) mg/dL 30 H Urine Ketones (Negative) mg/dL Trace H Urine Blood (Negative) Negative Urine Nitrite (Negative) Positive H Urine Bilirubin (Negative) Small H Urine Urobilinogen (Up to 0.2) mg/dL 0.2 Ur Leukocyte Esterase (Negative) Small H Urine RBC (0-2) HPF 0-2 Urine WBC (0-5) HPF 10-20 H Ur Epithelial Cells (Negative) HPF Many Urine Crystals (Negative) HPF Negative Urine Bacteria (Negative) HPF Few Urine Casts (Negative) LPF 0-2 Coarse Granular Urine Mucus (Negative) Moderate Urine Other (Negative) Negative Ur Culture Indicated? No/Sq. Contamination Urine Glucose (Negative) mg/dL Negative Range/Units 01/31/23 12:10 WBC (4.4-10.8) 10^3/uL RBC (3.93-5.22) 10^6/uL Hgb (11.2-15.7) g/dL Hct (36.0-46.0) % MCV (80-95) fL MCH (27.0-33.0) pg MCHC (32.0-36.0) % RDW (11.7-14.6) % Plt Count (130-400) 10^3/uL MPV (8.0-11.0) fL Immature Gran % Neutrophils % Lymphocytes % Monocytes % Eosinophils % Basophils % Nucleated RBC % (0.0-0.3) % Absolute Neutrophils (1.2-6.7) 10^3/uL Absolute Lymphocytes (1.2-3.4) 10^3/uL Absolute Monocytes (0.1-0.8) 10^3/uL Absolute Eosinophils (0.0-0.7) 10^3/uL Absolute Basophils (0.0-0.2) 10^3/uL Sodium (136-145) mmol/L Potassium (3.5-5.1) mmol/L Chloride (98-107) mmol/L Carbon Dioxide (21.0-32.0) mmol/L Anion Gap (3-11) mmol/L BUN (7-18) mg/dL Creatinine (0.55-1.02) mg/dL Est GFR (CKD-EPI 2020) (mL/min/1.73m2) Glucose (74-106) mg/dL Calcium (8.5-10.1) mg/dL Magnesium (1.8-2.4) mg/dL Total Bilirubin (0.2-1.0) mg/dL AST (15-37) U/L ALT (14-59) U/L Alkaline Phosphatase (46-116) U/L Total Protein (6.4-8.2) g/dL Albumin (3.4-5.0) g/dL TSH (0.36-3.74) uIU/mL Urine Color (Yellow) Urine Clarity (Clear) Urine pH (5-8) Ur Specific Sheridan (1.005-1.025) Urine Protein (Negative) mg/dL Urine Ketones (Negative) mg/dL Urine Blood (Negative) Urine Nitrite (Negative) Urine Bilirubin (Negative) Urine Urobilinogen (Up to 0.2) mg/dL Ur Leukocyte Esterase (Negative) Urine RBC (0-2) HPF 3-5 H Urine WBC (0-5) HPF 20-50 H Ur Epithelial Cells (Negative) HPF Moderate Urine Crystals (Negative) HPF Negative Urine Bacteria (Negative) HPF Moderate Urine Casts (Negative) LPF Comment Urine Mucus (Negative) Moderate Urine Other (Negative) Few Renal Ur Culture Indicated? No/Sq. Contamination Urine Glucose (Negative) mg/dL POC- Test(urine) Negative
== END 2023-01-31 17:24 | disposition home or self-care (01) ==
PROVIDERS: Emergency Provider Physician Assistant; PCP Family Medicine
DX: R30.0 Dysuria (principal); Z98.890 Other specified postprocedural states
CPT/HCPCS: 36415; 80053; 81025; 99283; 70450; 81003; 81015; 83735; 84443; 85025; 99284

== ENCOUNTER 2023-02-08 20:17 | Outpatient (REF) | payer OTHER, SELFPAY | END 2023-02-08 20:18 | disposition home or self-care (01) | LOC: NCHCN 20:17 | PROVIDERS: PCP Family Medicine; Visit Provider Family Medicine | DX: R30.0 Dysuria (principal) | CPT/HCPCS: 87077; 87086; 87186 ==

== ENCOUNTER 2023-02-16 14:03 | Outpatient (REF) | payer OTHER, SELFPAY | END 2023-02-16 14:04 | disposition home or self-care (01) | LOC: NCHCN 14:03 | PROVIDERS: PCP Family Medicine; Visit Provider Family Medicine | DX: R30.0 Dysuria (principal) | CPT/HCPCS: 87086 ==

== ENCOUNTER 2023-02-24 17:01 | Emergency (ER) | payer OTHER, SELFPAY ==
[2023-02-24 17:03] VITALS: BP 141/75; PULSE 109; RESP 16; TEMP 36.2; O2SAT 98
--- NOTE | 2023-02-24 17:15 | DI.CT_ITS ---
Exam(s) CT RENAL COLIC WO EXAM: CT RENAL COLIC WO CLINICAL HISTORY: intermittent right flank pain. TECHNIQUE: Imaging Protocol: Axial computed tomography images with coronal and sagittal reformatted images were created and reviewed. CONTRAST MATERIAL: Noncontrast COMPARISON: No exams were available for comparison FINDINGS: ABDOMEN: Lung Bases: Normal where visualized. Liver: Normal attenuation. No measurable mass. Gallbladder and biliary tract: Status post cholecystectomy. No radiodense calculus or dilation. Pancreas: Normal density, no calcifications or inflammatory process. Spleen: Normal. Kidneys: Normal size, contour and axis. Mild to moderate right hydronephrosis. No masses seen. Adrenal glands: No masses seen. Abdominal Aorta: Abdominal portion non-dilated. Soft tissues: Unremarkable. PELVIS: Bladder: Nearly empty no gross wall thickening. Small calcification is seen in the posterior left viola e of the bladder.No visible mass. Bowel: No obstruction or bowel wall thickening. Reproductive: Unremarkable. Tubal ligation clips. Peritoneal cavity: No ascites, collection or mesenteric inflammatory response. Bones: Unremarkable for age.. IMPRESSION: 2 millimeter stone seen in the left posterior portion of the bladder. Mild right hydronephrosis. RADIATION DOSE DELIVERED: 801.4mGy.cm Total DLP DATA REPOSITORY: All CT scans at this facility are submitted to the National Radiology Data Registry (NRDR) Dose Index Registry (DIR) with the [employer] (ACR). RADIATION OPTIMIZATION: All CT scans at this facility use at least one of these dose optimization te chniques: automated exposure control; mA and/or kV adjustment per patient size (includes targeted exa ms where dose is matched to clinical indication); or iterative reconstruction.
--- NOTE | 2023-02-24 17:16 | ED.GENADUL_ITS ---
Discharge Plan Disposition Patient Disposition: Home Condition: Improving Discharge Details Clinical Impression: Pyelonephritis Primary Care Provider: Nate Tariq ED Provider: Michelet Wang Meds and New Rx's Prescriptions: New cefpodoxime 200 mg tablet 200 mg PO BID Qty: 20 0RF Rx Instructions: must administer with a meal/food ondansetron 4 mg tablet,disintegrating 4 mg PO Q8H PRNQty: 10 0RF ibuprofen 600 mg tablet 600 mg PO TID PRNQty: 15 0RF Discharge Instructions Instructions: Kidney Infection (ED) Additional Instructions: Your blood work is reassuring. Your urine definitely looks infected. CT scan does show evidence of swelling involving the kidney and ureter but no obstructing stone. Questionable recent stone passage given calcification seen in the bladder. Will continue antibiotics for 10 days. May use ibuprofen and ondansetron for recurrent symptoms. Will try to facilitate earlier appointment with urology here. Follow-up with primary care next week. Return to ED for worsening pain, persistent vomiting, confusion, fever, other concerns. Medical Decision Making Patient presenting with intermittent right flank pain that she feels is related to menstrual cycle. She does have urinary symptoms and has been treated for UTI. She has seen primary care and has been referred to urology. She has not had any imaging. She has not had problems like this in the past. Symptoms only began in the last couple of months. IV established and laboratory studies obtained. Urine and urine test ordered. Stone study ordered. Toradol and Zofran given for symptoms. Patient's white count is slightly elevated 12.2. Chemistries, kidney function, liver function are normal. Urinalysis is suggestive of UTI with moderate blood, positive nitrites, greater than 50 white cells and moderate bacteria and a clean urine. She is ordered for IV ceftriaxone. I will continue her on cefpodoxime for 10 days given recurrent symptoms. Her CT scan shows right hydronephrosis a nd hydroureter but no obstructing calculus. There is calcification with in the bladder suggestive of a recently passed stone. He has improved with Toradol, fluids, Zofran. We will try to move her urology appointment up given findings on CT. I have discussed all the above with the patient and will send prescriptions to pharmacy for her to spanish moss picker in the morning. Return precautions provided. Lab Data Lab results reviewed: Yes I reviewed the patient's lab results. HPI General Mode of arrival: ambulatory . Date/Time Provider Initiated Documentation: 02/24/23 17:16 . Limitations to Documentation: no limitations . Information obtained by: patient . HPI Narrative: Patient presents to ED with right flank pain. Patient has been having intermittent episodes of this for a couple of months. She typically develops pain like this around her menstrual cycle. It is intense at times with associated nausea and vomiting. She has been having urgency and dysuria on and off as well. She has been treated for UTI recently. She is not having any abdominal or pelvic pain at this time. She finished her menstrual cycle 3 days ago. Pain has been ramping up over today and she decided to come into ED to be evaluated. Related Data Home Medications Medication Instructions Recorded Confirmed cefpodoxime 200 mg tablet 200 mg PO BID #20 tabs 02/24/23 ibuprofen 600 mg tablet 600 mg PO TID PRN #15 tabs 02/24/23 ondansetron 4 mg disintegrating 4 mg PO Q8H PRN #10 tabs 02/24/23 tablet Previous Rx's Medication Instructions Recorded cefpodoxime 200 mg tablet 200 mg PO BID #20 tabs 02/24/23 ibuprofen 600 mg tablet 600 mg PO TID PRN #15 tabs 02/24/23 ondansetron 4 mg disintegrating 4 mg PO Q8H PRN #10 tabs 02/24/23 tablet Allergies Allergy/AdvReac Type Severity Reaction Status Date / Time No Known Allergies Allergy Unverified 02/24/23 17:06 General Stated Complaint: FlankPain FELA: 3 Review of Systems Narrative: Per HPI PFSH All Active Problems (Updated 02/24/23 @ 18:58 by Michelet Wang MD) Pyelonephritis (Acute) Urinary urgency (Acute) Dysuria (Acute) Medical History Adenoma of pituitary Surgical History History of section S/P cholecystectomy Social History Smoking/Tobacco Use Status: Never Smoking risk assessment performed?: Yes Alcohol Intake: never Drug use: Rarely Substance use type: does not use Do you feel safe at home: Yes Do you feel safe in your relationship?: Yes Exam Narrative Exam Narrative: Const: WDWN female in NAD. HEENT: NC/AT. Normal facial exam. Eyes: Normal conjunctiva and sclera. Neck: Supple. Trachea midline. Lungs: Normal respiratory effort. Lungs are clear. Cor: RRR without murmur/gallop. Good radial pulses. GI: Soft. NT/ND. No guarding or rebound. Back: No CVAT Neuro: A+O x 3. Normal speech, mentation, gait. Cranial nerves II - XII grossly intact. No gross motor or sensory deficit. Ext: No C/C/E. Skin: Warm and dry without rash. Course Vital Signs Vital signs: Vital Signs Temperature 97.2 F L 02/24/23 17:03 Pulse 109 H 02/24/23 17:03 Respiratory Rate 16 02/24/23 17:03 Blood Pressure 141/75 H 02/24/23 17:03 Pulse Oximetry 98 02/24/23 17:03 Temperature 97.2 F L 02/24/23 17:03 Temperature Source Temporal Artery Scan 02/24/23 17:03 Pulse 109 H 02/24/23 17:03 Respiratory Rate 16 02/24/23 17:03 Respiratory Effort Normal 02/24/23 17:05 Blood Pressure 141/75 H 02/24/23 17:03 Blood Pressure Position Sitting 02/24/23 17:03 Pulse Oximetry 98 02/24/23 17:03 Oxygen Delivery Method Room Air 02/24/23 17:03 Oxygen Flow Rate 0 02/24/23 17:03 Pain Level 6 02/24/23 17:03
[2023-02-24 17:47] LABS: Abs Immature Grans 0.04 10^3/uL (0.0-0.06); Absolute Basophil Count 0.06 10^3/uL (0.0-0.2); Absolute Lymphocyte Count 2.69 10^3/uL (1.2-3.4); Absolute Monocyte Count 0.77 10^3/uL (0.1-0.8); Basophils % 0.5; Eosinophils % 1.6; HCT 38.1 % (36.0-46.0); HGB 12.7 g/dL (11.2-15.7); Immature Grans % 0.3; Lymphocytes % 22.1; MCH 29.1 pg (27.0-33.0); MCHC 33.3 % (32.0-36.0); MCV 87 fL (80-95); MPV 9.9 fL (8.0-11.0); Monocytes % 6.3; Neutrophils % 69.2; Platelet Count 283 10^3/uL (130-400); RBC 4.36 10^6/uL (3.93-5.22); RDW 12.9 % (11.7-14.6); RDW-SD 41.2 fL; WBC 12.19 10^3/uL (4.4-10.8)
[2023-02-24 17:51] LABS: Bilirubin Negative (Negative); Blood Moderate (Negative); Clarity Sl Cloudy (Clear); Glucose Negative (Negative); Ketones Negative (Negative); Leukocyte Esterase Small (Negative); Nitrite Positive (Negative); Specific Gravity 1.015 (1.005-1.025); Urobilinogen 0.2 mg/dL (Up to 0.2); pH 5.5 (5-8)
[2023-02-24] MEDS: Ketorolac 30 MG/ML VIAL IVP (17:55)
[2023-02-24 17:56] LABS: Absolute Neutrophil Count 8.44 10^3/uL (1.2-6.7)
[2023-02-24] MEDS: Ondansetron 4 MG/2 ML VIAL IVP (17:56)
[2023-02-24] MEDS: Normal Saline 1,000 ML 1000 ML IV (17:56)
[2023-02-24 18:05] LABS: ALT 18 U/L (14-59); AST 18 U/L (15-37); Albumin 3.9 g/dL (3.4-5.0); Alkaline Phosphatase 74 U/L (46-116); Anion Gap 6.4 mmol/L (3-11); BUN 11 mg/dL (7-18); Bilirubin, Total 0.4 mg/dL (0.2-1.0); CO2 29.6 mmol/L (21.0-32.0); CREATININE 0.9 mg/dL (0.55-1.02); Calcium 9.3 mg/dL (8.5-10.1); Chloride 104 mmol/L (98-107); Estimated GFR 84.97 (mL/min/1.73m2); Glucose 94 mg/dL (74-106); Sodium 140 mmol/L (136-145)
[2023-02-24 18:09] LABS: Epithelial Cells Few HPF (Negative); WBC >50 HPF (0-5)
[2023-02-24 18:10] LABS: Bacteria Moderate HPF (Negative); C & S Indicated? Yes; Casts 0-2 Hyaline LPF (Negative); Crystals Negative HPF (Negative); Mucus Negative (Negative); Other Cells Few Renal (Negative)
[2023-02-24] MEDS: cefTRIAXone 1 GM/50 ML BAG IVPB (18:31)
--- NOTE | 2023-02-24 18:36 | DI.VRAD_ITS ---
PROCEDURE INFORMATION: Exam: CT Abdomen And Pelvis Without Contrast Exam date and time: 02/24/2023 6:08 PM Age: 37 years old Clinical indication: Other: Intermittent right flank pain TECHNIQUE: Imaging protocol: Computed tomography of the abdomen and pelvis without contrast. COMPARISON: CR XR CHEST 2V PA LATERAL 03/13/2022 12:58 PM FINDINGS: Liver: Normal. No mass. Gallbladder and bile ducts: Status post cholecystectomy. Pancreas: Normal. No ductal dilation. Spleen: Normal. No splenomegaly. Adrenal glands: Normal. No mass. Kidneys and ureters: Is mild right perinephric edema. There is mild right hydronephrosis and hydroureter. No obstructing calculus is seen. Stomach and bowel: Diverticulosis without acute diverticulitis. Appendix: Appendix well seen, within normal limits. Intraperitoneal space: Unremarkable. No free air. No significant fluid collection. Vasculature: Unremarkable. No abdominal aortic aneurysm. Lymph nodes: Unremarkable. No enlarged lymph nodes. Urinary bladder: The bladder is empty. There appears to be a small calcification adjacent to the left bladder which is likely within the bladder lumen. Reproductive: Status post tubal ligation. Bones/joints: Unremarkable. No acute fracture. Soft tissues: Unremarkable. IMPRESSION: Probable recently right-sided calculus. Suspect calcification within the bladder related to recently passed calculus. Dictated and Authenticated by: Charo Hawthorne MD. Ordering:KRISHNA Tafoya MD
--- NOTE | 2023-02-24 18:56 | NUR.NOTE ---
Nursing Note: Referral faxed to [facility] Urology for right side pain, intermittent, UTI, (hydronephrosis, hydroureter w/no obstruction) to be seen within the next couple weeks.
[2023-02-24 19:13] VITALS: PULSE 70; RESP 16; O2SAT 98
--- NOTE | 2023-02-27 08:31 | NUR.NOTE ---
Nursing Note: Accessed chart to look up whether or not on antibiotic.
== END 2023-02-24 19:23 | disposition home or self-care (01) ==
PROVIDERS: Emergency Provider Emergency Medicine; PCP Family Medicine
DX: N12 Tubulo-interstitial nephritis, not specified as acute or chronic (principal)
CPT/HCPCS: 80053; 81025; 87077; 96361; 96365; 96375; 99284; 74176; 81003; 81015; 85025; 87086; 87186; J0696; J1885; J2405

== ENCOUNTER 2024-09-16 17:40 | Outpatient (REF) | payer OTHER, SELFPAY ==
[2024-09-16 21:43] LABS: Abs Immature Grans 0.02 10^3/uL (0.0-0.06); Absolute Basophil Count 0.05 10^3/uL (0.0-0.2); Absolute Eosinophil Count 0.18 10^3/uL (0.0-0.7); Absolute Monocyte Count 0.55 10^3/uL (0.1-0.8); Absolute Neutrophil Count 3.42 10^3/uL (1.2-6.7); Basophils % 0.7 %; Eosinophils % 2.5 %; HCT 42.1 % (36.0-46.0); HGB 13.7 g/dL (11.2-15.7); Immature Grans % 0.3 %; Lymphocytes % 41.6 %; MCH 29.3 pg (27.0-33.0); MCHC 32.5 % (32.0-36.0); MCV 90 fL (80-95); MPV 11.2 fL (8.0-11.0); Monocytes % 7.6 %; Neutrophils % 47.3 %; Platelet Count 339 10^3/uL (130-400); RBC 4.67 10^6/uL (3.93-5.22); RDW 12.5 % (11.7-14.6); RDW-SD 41.1 fL; WBC 7.22 10^3/uL (4.4-10.8)
[2024-09-16 21:45] LABS: ALT 20 U/L (14-59); AST 15 U/L (15-37); Albumin 3.9 g/dL (3.4-5.0); Alkaline Phosphatase 79 U/L (46-116); Anion Gap 6.7 mmol/L (3-11); BUN 9 mg/dL (7-18); Bilirubin, Total 0.22 mg/dL (0.2-1.0); CO2 29.3 mmol/L (21.0-32.0); Calcium 9.5 mg/dL (8.5-10.1); Chloride 106 mmol/L (98-107); Estimated GFR 73.95 (mL/min/1.73m2); Glucose 92 mg/dL (74-106); Potassium 3.9 mmol/L (3.5-5.1); Sodium 142 mmol/L (136-145); Total Protein 7.6 g/dL (6.4-8.2)
== END 2024-09-16 17:41 | disposition home or self-care (01) ==
LOC: LBN 17:40
PROVIDERS: PCP Family Medicine; Visit Provider Nurse Practitioner Family
DX: M25.461 Effusion, right knee
CPT/HCPCS: 80053; 85025

== ENCOUNTER 2024-09-16 17:44 | Outpatient (CLI) | payer OTHER, SELFPAY ==
--- OUTSIDE RECORDS SUMMARY | 2024-09-16 17:45 | XMS_ITS | Encounter Summary ---
Author Organization [facility] [place] [address] Care Team Providers Care Superintendent Drilling Name Role Phone Nate Tariq MD Primary Care Provider [phone] Encounter Details Date Type Department Care Team (Latest Contact Info) Description 05/11/2022 1:00 PM EDT Office [place] [phone] Facundo Fletcher DO History of Phoenix's syndrome; Secondary adrenal insufficiency Social History Tobacco Use Types Packs/Day Years Used Date Smoking Tobacco: Never Smokeless Tobacco: Never Alcohol Use Standard Drinks/Week Comments Not Currently 0 (1 standard drink = 0.6 oz pur e alcohol) Sex and Gender Information Value Date Recorded Sex Assigned at Not on file Gender Identity Not on file Sexual Orientation Not on file documented as of this encounter Last Filed Vital Signs Vital Sign Reading Time Taken Comments Blood Pressure 124/89 05/11/2022 12:30 PM EDT Pulse 88 05/11/2022 12:30 PM EDT Temperature 35.8 ??C (96.4 ??F) 05/11/2022 12:30 PM E DT Respiratory Rate - - Oxygen Saturation 99% 05/11/2022 12:30 PM EDT Inhaled Oxygen Concentration - - Weight 77.6 kg (171 lb) 05/11/2022 12:30 PM EDT Height 167.6 cm (5' 6) 05/11/2022 12:30 PM EDT Body Mass Index 27.6 05/11/2022 12:30 PM EDT documented in this encounter Patient Instructions * Patient Instructions* Facundo Fletcher DO - 05/11/2022 1:00 PM EDT -Decrease you hydrocortisone to one and a half tablets in the morning (15mg) and half a tablet (5mg) in the afternoon. -After three weeks of this medication change please have labs drawn. For this you will hold your afternoon dose of hydrocortisone and the dose the following morning and have blood drawn early in the morning. -Please have a repeat MRI of your pituitary in 6 months. documented in this encounter Progress Notes * Facundo Fletcher DO - 05/11/2022 1:00 PM EDT Images from the original note were not included. Ms. Amy Mccall is an 36 y.o. 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 During hospitalization she was started on hydrocortisone. She is taking 20 mg in the morning and 10 mg in the afternoon. She feels well. Vision is intact. Weight is stable and appetite is good. She is having regular menstrual cycles. Not having excessive thirst or frequent urination. Plan from last inpatient progress note 04/03/22: A 36 y.o. female with a PMH significant for recurrent macroadenoma with Hx of pituitary macroadenoma with ?Phoenix's disease s/p resection ~[id number] in [place]. She was admitted on 04/03/2022 for recurrent pituitary macroadenoma resection on 04/03. We are consulted for post-op recurrent pituitary macroadenoma resection. ?? 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 She had tumor resection today. Preop labs showed normal hormone levels but elevated ACTH. Her cortisol levels werein acceptable range preop and postop. But given her history of Phoenix's disease, we will preemptively start patient on hydrocortisone to prevent patient going into adrenal insufficiency. She should be follow-up as an outpatient to evaluate her HPA axis again. Also we would like to monitor for signs and symptoms of diabetes insipidus, including polyuria and polydipsia. If patient has urine output> 300 ml x 2 hours consecutively, she should be checked for urine and serum osm, urine and serum sodium, urine specific gravity. If patient has signs of DI, will start her on DDAVP according to her volume status (hypovolemic). ? Start hydrocortisone 25 mg twice daily ?? If patient has urine output > 300 ml x 2 hours consecutively, she should be checked for urineand serum osm, urine and serum sodium, urine specific gravity ?? If patient is going to be discharged, taper hydrocortisone to 10 mg in the morning and 5 mg at noon ?? Patient should be follow-up in endocrinology clinic to reevaluate for adrenal insufficiency Patient Active Problem List Diagnosis ??? Pituitary adenoma Current Outpatient Medications: ??? acetaminophen (Tylenol) 500 mg Tablet, Take 2 tablets by mouth every 6 hours as needed for Pain., Disp: 30 tablet, Rfl: 1 ??? polyethylene glycoL (Miralax) 17 gram Powder in Packet, Take 17 g by mouth daily as needed., Disp: 14 each, Rfl: 0 ??? hydrocortisone (CORTEF) 10 mg Tablet, Take 20mg (2 tablets) at 8 am and take 10 mg (1 tablet) at 3pm, Disp: 90 tablet, Rfl: 3 has no past medical history on file. Physical Exam: Patient Vitals for the past 24 hrs: Temp Pulse BP SpO2 05/11/22 1230 35.8 ??C (96.4 ??F) 88 124/89 99 % Wt & BMI By Encounter Date Flowsheet Row Office Visit from 05/11/2022 in Endocrinology at [facility] Admission (Discharged) from 04/03/2022 in [facility] Weight 77.6 kg (171 lb) 1 05/11/2022 1230 75.5 kg (166 lb 7.2 oz) 1 04/03/2022 0631 BMI 27.6 1 05/11/2022 1230 26.88 1 04/03/2022 0631 General: no acute distress, pleasant, sitting comfortably Respiratory: symmetrical chest expansion, breathing comfortably on room air Musculoskeletal: Moving all 4 extremities normally; normal female musculature Skin: normal temperature/texture Neurological: no tremors; normal gait Psychological: alert/oriented to person, place, time; normal affect; memory intact; normal judgement/insight Radiology Studies: Reading Physician Reading Date Result Priority Hannah Mckeon MD [phone] 04/03/2022 Narrative & Impression EXAMINATION: MRI PITUITARY WWO CONTRAST ?? 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 Post TSS. ? TECHNIQUE: MRI of the pituitary with and without contrast. 17 cc Dotarem administered intravenously. ?? COMPARISON: MRI brain March 13, 2022. ?? FINDINGS: Interval resection of sellar/pituitary tumor protruding into the posterior sphenoid sinus via a transsphenoidal approach, fat packing material in the anterior sphenoid body defect. There is residual enhancing tumor along the planum sphenoid alley measuring 1.3 cm AP by 1 cm craniocaudad by 1.8 cm transverse. Contiguous enhancing tumor within the sella. 1.8 cm AP by 1.2 cm craniocaudad and 1.8 cm transverse. Abnormal enhancement of the sphenoid subjacent to the sella suspicious for tumor invasion remains stable. ?? Optic chiasm and prechiasmatic optic nerves show normal signal and no abnormal enhancement. ?? IMPRESSION Postoperative changes associated with partial resection of pituitary tumor with skull base invasion by a transsphenoidal approach. 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 After the surgery she required no hormonal replacement. She had a recurrence of similar symptoms to her first presentation which included swelling of her extremities earlier this year and so sought follow-up here. Brain imaging showed recurrence of pituitary macroadenoma. Labs revealed elevated ACTH. She had the tumor surgically resected April 03. 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 She was discharged on hydrocortisone 20 mg in the morning 10 mg in afternoon. She is feeling well. As her cortisol was not very low during the hospitalization suspect she will likely be able to be weaned off the hydrocortisone soon. I discussed with her today reducing her dose to 15 mg in the morning and 5 mg in the afternoon with a plan to recheck an a.m. cortisol in a few weeks. We will reimage her pituitary with an MRI in 6 months. -Decrease hydrocortisone to 15 mg in the morning and 5 mg in afternoon -After about 3 weeks on the new regimen she will hold her afternoon and morning doses and have an point of care specialist cortisol checked. We will repeat other pituitary function labs at that time and Vit D as glucocorticoid axis predisposes to reduced bone density. -Repeat pituitary MRI in 6 months -Clinic follow-up in 6 to 12 months. Discussed with attending physician, Dr. Stanley. Facundo Fletcher, DO Endocrinology Fellow * Jakob Stanley MD - 05/11/2022 1:00 PM EDT I have seen the patient and reviewed Dr Fletcher's history and I agree with the details as written. The assessment and plan were formulated in discussion with me and I agree with them as documented. Orders Placed This Encounter Procedures ??? ACTH ??? Cortisol ??? Prolactin ??? Follicle Stimulating Hormone ??? Luteinizing Hormone ??? T4, free ??? TSH ??? Insulin Like GF-1 ??? Basic Metabolic Panel (non-fasting) ??? Estradiol ??? Vitamin D, 25-Hydroxy Jakob Stanley MD Clinical Nursing Managerriveter pneumatic Endocrinology Section [facility] documented in this encounter Plan of Treatment Not on file documented as of this encounter Visit Diagnoses Diagnosis History of Clawson's syndrome Personal history of other endocrine, metabolic, and immunity disorders Secondary adrenal insufficiency Glucocorticoid deficiency documented in this encounter Care Teams Superintendent Drilling Relationship Specialty Start Date End Date Nate Tariq MD [address] [place] [address] PCP - General Family Medicine 04/03/22 documented as of this encounter
--- OUTSIDE RECORDS SUMMARY | 2024-09-16 17:45 | XMS_ITS | Encounter Summary ---
Author Organization [facility] Address [address] [place] [id number] Care Team Providers Care Security Software Engineer Name Role Phone Unavailable Primary Care Provider Unavailabl e Encounter Details Date Type Department Care Team (Late st Contact Info) Description 03/13/2022 Lab Requisition [facility] Pathology & Laboratory Medicine - [address] [address] Outr Resulting Lab, Provider Social History Tobacco Use Types Packs/Day Years Used Date Smoking Tobacco: Never Assessed Comments Unknown Sex and Gender Information Value Date Recorded Sex Assigned at Not on file Legal Sex Female 15:59 EDT Gender Identity Not on file Sexual Orientation Not on file documented as of this encounter Plan of Treatment Not on file documented as of this encounter Procedures Procedure Name Priority Date/Time Associated Diagnosis Comments PROLACTIN Routine 03/13/2022 13:50 EDT LH Routine 03/13/2022 13:50 EDT FSH Routine 03/13/2022 13:50 EDT documented in this encounter Results * LH (03/13/2022 13:50 EDT) Luteinizing Hormone 3.3 See Note mIU/mL 03/13/2022 23:29 EDT [facility] Comment: NOTE: Female Reference Ranges: Pre-Pubertal: ?<6.0 mIU/mL Menstruating: Follicular Phase(-12 to -4 days: ??1.9 - 12.5 mIU/mL Midcycle(-3 to +2 days): ?8.7 - 76.3 mIU/mL Luteal Phase(+4 to +12 days): ? 0.5 - 16.9 mIU/mL Post Menopausal: 15.9 - 54.0 mIU/mL Blood VENOUS BLOOD / Unknown 03/13/2022 13:50 EDT 03/13/2022 21:36 EDT Provider Outr Resulting Lab CHEMISTRY & BLOOD GA S ORDERABLES Final Result Performing Organization Address [facility] de Phone Number [facility] [address] [place] [address] * FSH (03/13/2022 13:50 EDT) FSH 5.3 See Note mIU/mL 03/13/2022 23:34 EDT [facility] Blood VENOUS BLOOD / Unknown 03/13/2022 13:50 EDT 03/13/2022 21:36 EDT Narrative [facility] - 03/13/2022 23:34 EDT NOTE: Female FSH Reference Ranges (>= 13 Menstruating): PHYSIOLOGICAL STATUS ? REFERENCE RANGE ? Follicular (-12 to -4 days): ?? 2.5 - 10.2 mIU/mL Midcycle (-3 to +2 days): ?3.4 - 33.4 mIU/mL Luteal (+4 to +12 days): ? 1.5 - 9.1 mIU/mL Postmenopausal: ?23.0 - 116.3 mIU/mL Reference Ranges for female patients <13 years old have not been established. us Provider Outr Resulting Lab CHEMISTRY & BLOOD GA S ORDERABLES Final Result Performing Organization Address [facility] Co de Phone Number [facility] [address] [place] [address] * PROLACTIN (03/13/2022 13:50 EDT) Prolactin 1.5 See Note ng/mL 03/13/2022 23:32 EDT [facility] Comment: NOTE: Female Reference Ranges: PHYSIOLOGICAL STATUS ?EXPECTED RANGE ? Postmenopausal ?1.8 - 20.3 ng/mL ?9.7 - 208.5 ng/mL Non- ?2.8 - 29.2 ng/mL Reference Ranges for Prolactin in female patients <18 years old have not been established. Blood VENOUS BLOOD / Unknown 03/13/2022 13:50 EDT 03/13/2022 21:36 EDT us Provider Outr Resulting Lab CHEMISTRY & BLOOD GA S ORDERABLES Final Result [facility] [address] [place] [address] documented in this encounter Visit Diagnoses Not on filedocumented in this encounter
--- OUTSIDE RECORDS SUMMARY | 2024-09-16 17:45 | XMS_ITS | Encounter Summary ---
Author Organization [facility] Address [facility] [place] [address] Care Team Providers Care Remote Sensing Research Scientist Name Role Phone Nate Tariq MD Primary Care Provider [phone] Encounter Details Date Type Department Care Team (Latest Contact Info) Description 05/02/2022 11:00 AM EDT TH Visit (TeleHealth) [place] [address] Gurdeep England MD [facility] [place] [address] Lockwood's disease; Pituitary adenoma Social History Tobacco Use Types Packs/Day Years Used Date Smoking Tobacco: Never Smokeless Tobacco: Never Alcohol Use Standard Drinks/Week Comments Not Currently 0 (1 standard drink = 0.6 oz pur e alcohol) Sex and Gender Information Value Date Recorded Sex Assigned at Not on file Gender Identity Not on file Sexual Orientation Not on file documented as of this encounter Progress Notes * Gurdeep England MD - 05/02/2022 11:00 AM EDT I just spoke with Amy on the phone. She is a 36-year-old female who underwent resection of a Phoenix's macroadenoma in [place]. This was performed in 2016. She then relocated to [facility] to and COVID, she did not have any official follow-up until she had a recurrence of swelling that was similar to her original presentation. She was evaluated and found to have a recurrent tumor. We took her to the operating room and resected a recurrent adenoma. It was notable at the recurrence that the tumor had extended extrasellar into the epidural space as well as into the bone of the clivus which required some bony resection as well as a typical intrasellar resection of tumor. Postoperatively we followed her cortisol levels without replacement. While she did show a significant decrease, she she never attained nonmeasurable or significantly low levels. We placed her on replacement steroids as a stress dose and discharged her. 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 Symptomatically she seems to be doing well with no evidence of CSF rhinorrhea, significant nasal complications. She feels as though the swelling in her hands and feet has reduced and is returning back to normal. It sounds as though we have at least lessened her cortisol burden and symptomatically improved her.My concern is that given the extracapsular expansion of the tumor and the fact that this was a recurrence from a primary resection, she probably still harbors some degree of tumor. I am hoping endocri nology can help us monitor her and evaluate her cortisol burden. If she has residual disease then we may need to talk about either a repeat operation, radiation treatment, or even an adrenalectomy. Hopefully she is eu-cortisolemic for the time being but we will see what her laboratory studies indicate Will await the endocrinology assessment and make further plans at that time. documented in this encounter Plan of Treatment Not on file documented as of this encounter Visit Diagnoses Diagnosis Phoenix's disease Lockwood's syndrome Pituitary adenoma Benign neoplasm of pituitary gland and craniopharyngeal duct (pouch) documented in this encounter Care Teams Remote Sensing Research Scientist Relationship Specialty Start Date End Date Nate Tariq MD [address] [place] [address] PCP - General Family Medicine 04/03/22 documented as of this encounter
--- OUTSIDE RECORDS SUMMARY | 2024-09-16 17:45 | XMS_ITS | Encounter Summary ---
Author Organization [facility] Address [address] [place] [id number] Care Team Providers Care Finished Stock Inspector Name Role Phone Unavailable Primary Care Provider Unavailabl e Encounter Details Date Type Department Care Team (Late st Contact Info) Description 03/14/2022 Lab Requisition [facility] [address] [place] [address] Outr Resulting Lab, Provider Social History Tobacco [...] Procedure Name Priority Date/Time Associated Diagnosis Comments HOLD SST Today 03/13/2022 19:30 EDT T3 FREE Today 03/13/2022 19:30 EDT CORTISOL Today 03/13/2022 19:30 EDT documented in this encounter Results * HOLD SST (03/13/2022 19:30 EDT) Hold Hold 03/14/2022 17:47 EDT [facility] Blood VENOUS BLOOD / Unknown 03/13/2022 19:30 EDT 03/14/2022 16:42 EDT us Provider Outr Resulting Lab LAB INFO SERVICE AND SUPPORT & PHONE RESULT Final Result [facility] [address] [place] [address] * (ABNORMAL) T3 FREE (03/13/2022 19:30 EDT) T3, Free 2.5(L) 2.8 - 5.3 pg/mL 03/14/2022 17:39 EDT [facility] Blood VENOUS BLOOD / Unknown 03/13/2022 19:30 EDT 03/14/2022 16:42 EDT us Provider Outr Resulting Lab CHEMISTRY & BLOOD GA S ORDERABLES Final Result Performing Organization Address [facility]/ZIP Co de Phone Number [facility] [address] [place] [address] * CORTISOL (03/13/2022 19:30 EDT) Pathologist [facility] Cortisol 43 See Note ug/dL 03/14/2022 17:55 EDT [facility] Comment: NOTE: Reference Ranges (from [facility] IFU): Collected Before 10:00 AM: ??4 - 23 ug/dL Collected After 5:00 PM: ?2 - 14 ug/dL The results of this assay can be falsely elevated due to the consumption of Biotin. Blood VENOUS BLOOD / Unknown 03/13/2022 19:30 EDT 03/14/2022 16:42 EDT us Provider Outr Resulting Lab CHEMISTRY & BLOOD GA S ORDERABLES Final Result Performing Organization Address City/[facility]/ZIP Co de Phone Number [facility] [address] [place] [address] documented in this encounter Visit Diagnoses Not on filedocumented in this encounter
--- OUTSIDE RECORDS SUMMARY | 2024-09-16 17:45 | XMS_ITS | Encounter Summary ---
Author Organization [facility] Address [address] [place] [address] Care Team Providers Care Psychiatric Cns Name Role Phone Unavailable Primary Care Provider Unavailabl e Encounter Details Date Type Department Care Team (Late st Contact Info) Description 05/25/2022 Lab Requisition [facility] - [facility] [address] [place] [address] Outr Resulting Lab, Provider Social History Tobacco [...] Priority Date/Time Associated Diagnosis Comments PROLACTIN Routine 05/25/2022 9:46 EDT ESTRADIOL, ADULTS Routine 05/25/2022 9:46 EDT LH Routine 05/25/2022 9:46 EDT FSH Routine 05/25/2022 9:46 EDT CORTISOL Routine 05/25/2022 9:46 EDT documented in this encounter Results * LH (05/25/2022 9:46 EDT) Luteinizing Hormone 7.5 See Note mIU/mL 05/25/2022 20:37 EDT [facility] Comment: NOTE: Female Reference Ranges: Pre-Pubertal: ?<6.0 mIU/mL Menstruating: Follicular Phase(-12 to -4 days: ??1.9 - 12.5 mIU/mL Midcycle(-3 to +2 days): ?8.7 - 76.3 mIU/mL Luteal Phase(+4 to +12 days): ? 0.5 - 16.9 mIU/mL Post Menopausal: 15.9 - 54.0 mIU/mL Blood VENOUS BLOOD / Unknown 05/25/2022 9:46 EDT 05/25/2022 17:53 EDT us Provider Outr Resulting Lab CHEMISTRY & BLOOD GA S ORDERABLES Final Result [facility] [address] [place] [address] * FSH (05/25/2022 9:46 EDT) FSH 3.6 See Note mIU/mL 05/25/2022 20:35 EDT [facility] Blood VENOUS BLOOD / Unknown 05/25/2022 9:46 EDT 05/25/2022 17:53 EDT Narrative [facility] - 05/25/2022 20:35 EDT NOTE: Female FSH Reference Ranges (Menstruating): PHYSIOLOGICAL STATUS ? REFERENCE RANGE ? Follicular (-12 to -4 days): ?? 2.5 - 10.2 mIU/mL Midcycle (-3 to +2 days): ?3.4 - 33.4 mIU/mL Luteal (+4 to +12 days): ? 1.5 - 9.1 mIU/mL Postmenopausal: ?23.0 - 116.3 mIU/mL Reference Ranges for pediatric non-menstruating female patients have not been established. Provider Outr Resulting Lab CHEMISTRY & BLOOD GA S ORDERABLES Final Result Performing Organization Address [facility] de Phone Number [facility] [address] [place] [address] * PROLACTIN (05/25/2022 9:46 EDT) [facility] Prolactin 4.7 See Note ng/mL 05/25/2022 20:37 EDT [facility] Comment: NOTE: Female Reference Ranges: PHYSIOLOGICAL STATUS ?REFERENCE RANGE ? Postmenopausal ?1.8 - 20.3 ng/mL ?9.7 - 208.5 ng/mL Non- ?2.8 - 29.2 ng/mL Blood VENOUS BLOOD / Unknown 05/25/2022 9:46 EDT 05/25/2022 17:53 EDT us Provider Outr Resulting Lab CHEMISTRY & BLOOD GA S ORDERABLES Final Result Performing Organization Address [facility] de Phone Number [facility] [address] [place] [address] * ESTRADIOL, ADULTS (05/25/2022 9:46 EDT) Pathologist [facility] Estradiol 146 See Note pg/mL 05/25/2022 20:16 EDT [facility] Comment: NOTE: FEMALE REFERENCE RANGES: MENSTRUATING ? By cycle day relative to LH peak Follicular ?(-12 to -4 days) ??20-144 pg/mL Midcycle ?(-3 to +2 days) ?? 64-357 pg/mL Luteal ?(+4 t0 +12 days) ??56-214 pg/mL POSTMENOPAUSAL ?<32 pg/mL *Cross reactivity with Fulvestrant could lead to a falsely elevated estradiol result in patients treated with this drug. Blood VENOUS BLOOD / Unknown 05/25/2022 9:46 EDT 05/25/2022 17:53 EDT Provider Outr Resulting Lab CHEMISTRY & BLOOD GA S ORDERABLES Final Result Performing Organization Address [facility] de Phone Number [facility] [address] [place] [address] * CORTISOL (05/25/2022 9:46 EDT) Cortisol 7 See Note ug/dL 05/25/2022 19:38 EDT [facility] Comment: NOTE: Reference Ranges (from [facility] IFU): Collected Before 10:00 AM: ??4 - 23 ug/dL Collected After 5:00 PM: ?2 - 14 ug/dL The results of this assay can be falsely elevated due to the consumption of Biotin. Blood VENOUS BLOOD / Unknown 05/25/2022 9:46 EDT 05/25/2022 17:53 EDT us Provider Outr Resulting Lab CHEMISTRY & BLOOD GA S ORDERABLES Final Result Performing Organization Address [facility] Co de Phone Number [facility] [address] [place] [address] documented in this encounter Visit Diagnoses Not on filedocumented in this encounter
--- OUTSIDE RECORDS SUMMARY | 2024-09-16 17:45 | XMS_ITS | Encounter Summary ---
Author Organization formerly [place] [address] Care Team Providers Care Sand System Operator Name Role Phone Nate Tariq MD Primary Care Provider [phone] Reason for Referral * Consultation (Routine) - Duplicate Referral Specialty Diagnoses / Procedures Referred By Gen portillo Referred To Contact Endocrinology Diagnoses Pituitary adenoma Laly Cortes PA [facility] [address] [facility] [address] [place] [phone] Referral ID Status Reason Start Date Expiration Date Visits Requested Visits Authorized [id number] Duplicate Referral Consult, Test & Treat 04/06/2022 04/06/2023 1 1 Reason for Visit * Auth/Cert Specialty Diagnoses / Procedures Referred By Gen portillo Referred To Contact Diagnoses Benign neoplasm of pituitary gland recurrent [place]'s macroadenoma Procedures PRO EXCIS PITUITARY, TRANSNASAL/SEPTAL PRO STEREOTACTIC CPTR ASSTD PX CRANIAL, INTRADURAL PRO GRAFTING OF AUTOLOGOUS SOFT TISS BY DIRECT EXCISION @TRANSSPHENOIDAL HYPOPHYSECTOMY (WRVU 23.37) STEREOTACTIC COMPUTER-ASSTD NAVIGATIONAL CRANIAL INTRADURAL (WRVU 3.75) GRAFTING OF AUTOLOGOUS SOFT TISSUE, OTHER, HARVESTED BY DIRECT EXCISION (FAT, DERMIS, OR FASCIA) Thania England MD [facility] [place] [address] [facility] Referral ID Status Reason Start Date Expiration Date Visits Re quested Visits Authorized [id number] 1 1 Encounter Details Date Type Department Care Team (Latest Contact Info) Description 04/03/2022 6:18 AM EDT - 04/06/2022 1:19 PM EDT Hospital Encounter Neuro[facility] [place] [phone] Thania England MD [facility] [place] [address] Pituitary adenoma Discharge Disposition: Home Social History Tobacco Use Types Packs/Day Years [...] Sign Reading Time Taken Comments Blood Pressure 132/86 04/06/2022 11:50 AM EDT Pulse 84 04/06/2022 11:50 AM EDT Temperature 36.8 ??C (98.2 ??F) 04/06/2022 11:50 AM E DT Respiratory Rate 16 04/06/2022 11:50 AM EDT Oxygen Saturation 98% 04/06/2022 11:50 AM EDT Inhaled Oxygen Concentration - - Weight 75.5 kg (166 lb 7.2 oz) 04/03/2022 6:31 A M EDT Height 167.6 cm (5' 5.98) 04/03/2022 6:31 AM ED T Body Mass Index 26.88 04/03/2022 6:31 AM EDT documented in this encounter Discharge Summaries * Tiffany Bustos PA - 04/06/2022 7:01 AM EDT This dictation platform is no longer active. Please use Facebook. Neurosurgery Discharge Summary Patient Name: Amy Mccall Patient Age: 36 y.o. Birthdate: 1985 Admit date: 04/03/2022 Discharge date: 04/06/2022 Attending Physician: Thania England MD Discharge Diagnoses: Recurrent pituitary macroadenoma Operations/Major Procedures: Procedure(s): @TRANSSPHENOIDAL HYPOPHYSECTOMY (WRVU 23.37) STEREOTACTIC COMPUTER-ASSTD NAVIGATIONAL CRANIAL INTRADURAL (WRVU 3.75) 04/03/2022 History of Presentation: Amy Mccall is a 36 y.o. female who presents for evaluation pituitary macroadenoma. She underwent initial resection of a pituitary mass 5-6 years ago at an outside hospital. Her symptoms prior to this operation were visual disturbances and swelling of the hands and feet. At this time she was told she had [place]'s disease. Postoperatively here symptoms improved significantly and remained well controlled until recently, when she began to notice swelling in her hands and feet again. She also complains of headache, loss of taste, and facial numbness. Imaging performed 03/13 revealed the apparent recurrence of her pituitary mass. At this point she presented to Dr. England' clinic for evaluation. Subsequent labs further suggested recurrent ACTH-producing tumor. It was determined that surgical resection would be beneficial, and the patient consented to the procedure. Hospital Course: Patient was admitted electively to [facility] via the same day surgery program and underwent the above procedure. She tolerated surgery well and was transferred from the operating room to the neurocriticalcare unit in good condition immediately after surgery. Patient's hospital course was uncomplicated.He neurological exam remained stable, and her labs were closely monitored, especially her cortisol levels and urine specific gravity to monitor for inadequate steroid levels and diabetes insipidus, respectively. She did not develop either of these potential complications during the immediate postope rative period. Cortisol levels normalized and she was discharged on hydrocortisone 20mg in morning and 10 mg in the afternoon. She remained afebrile, with stable vital signs throughout her hospital stay. Today, on POD# 3 she has met all criteria for discharge home: her pain is well controlled with m edications by mouth, she is tolerating a regular diet, is voiding spontaneously without difficulties, and is up and ambulating without complications. She has been deemed safe for discharge to home. Patient Active Problem List Diagnosis Code ??? Pituitary adenoma D35.2 EXAM: Vital Signs at Discharge: Weight: Wt Readings from Last 1 Encounters: 04/03/22 75.5 kg (166 lb 7.2 oz) Height: Ht Readings from Last 1 Encounters: 04/03/22 167.6 cm (5' 5.98) BMI: Body mass index is 26.88 kg/m??. Last value Range last 24 hrs Temperature Temp: 36.8 ??C (98.3 ??F) Temp: [36.6 ??C (97.9 ??F)-36.8 ??C (98.3 ??F)] Heart Rate Heart Rate: 63 Heart Rate: [58-86] Blood Pressure BP: (!) 133/96 BP: (122-137)/(79-98) Respiratory Rate Resp: 13 Resp: [11-20] SpO2 SpO2: 98 % SpO2: [98 %-99 %] Physical Exam on Discharge: GEN:NAD NEURO:AA+Ox3 Speech fluent and appropriate. PERRL. EOMI. Visual martin full to confrontation. No facial asymmetry Tongue midline MOTOR: RUE:5/5 LUE:5/5 RLE: 5/5 LLE: 5/5 No pronator drift LT sensation intact x 4 Mustache dressing with small amount of SS drainage Important Studies and Lab Data: Labs: Recent Results (from the past 12 hour(s)) Electrolytes panel Result Value Sodium 142 Potassium 2.8 (CRIT) Chloride 113 (H) CO2 23 Anion Gap 6 Osmolality Result Value Osmolality 286 Hemogram Result Value WBC 7.6 RBC 3.57 (L) Hemoglobin 10.9 (L) Hematocrit 31.7 (L) MCV 88.8 MCH 30.5 MCHC 34.4 Platelets 229 RDWSD 41.9 RDWCV 12.8 MPV 9.8 nRBC % Auto 0.0 nRBC Abs Auto 0.000 Differential, Automated Result Value Neutrophils % 48.2 Neutr Abs (ANC) 3.67 Lymphocytes % 39.7 Lymphocytes Abs 3.0 Monocytes % 9.1 Monocyte Abs 0.7 Eosinophils % 1.6 Eosinophils Abs 0.1 Basophils % 0.5 Basophils Abs 0.0 Immature Gran % 0.90 Nava Gran Abs 0.07 (H) Cortisol Result Value Cortisol 7.0 Studies: MRI Pituitary wwo Contrast Final Result Postoperative changes associated with partial resection of pituitary tumor with skull base invasion by a transsphenoidal approach. Thank you for letting us participate in the care of this patient. If you are a health care provider and have any questions regarding this report, please contact the number below. For patients who have questions please contact the health family day care provider that requested your imaging first. Electronically signed by: Hannah Mckeon MD, [facility] ([phone]), at 04/03/2022 5:12 PM Pending Studies and Lab Data: None Discharge Condition: Good Discharge to: Home Discharge Medications: Your Medications New Medications Dose Details acetaminophen 500 mg Tab Commonly known as: Tylenol Take 2 tablets by mouth every 6 hours as needed for Pain. 1,000 mg Quantity: 30 tablet Refills: 1 hydrocortisone 10 mg Tab Commonly known as: CORTEF Take 20mg (2 tablets) at 8 am and take 10 mg (1 tablet) at 3pm Quantity: 90 tablet Refills: 3 polyethylene glycoL 17 gram Pwpk Commonly known as: Miralax Take 17 g by mouth daily as needed. 17 g Quantity: 14 each Refills: 0 Updated Allergies/ADRs: No Known Allergies Instructions Given to Patient at Discharge: Patient Instructions TRANSSPHENOIDAL DISCHARGE INSTRUCTIONS PRESCRIPTION INSTRUCTIONS: Please see the medication reconciliation list on this discharge summary for a current list of your medications. Stop the use of blood thinning medications until instructed otherwise by your surgical team. This includes medications known as antiplatelet, anticoagulant, and non-steroidal anti-inflammatory (NSAIDs) drugs. Common jdqc-vkc-nzjhfoa medications which should be avoided include Aspirin, ibuprofen, and naproxen among others. These medications are sometimes combined with other drugs or are sold undera trade name. Common prescription medications which should be avoided include Plavix (clopidogrel) and Coumadin (warfarin) among others. The following medications are commonly prescribed after surgery. An [x] indicates that these medications have been prescribed for you. [x] Steroids - anti-inflammatory & hormone supplement: medications such as hydrocortisone, prednisone, and Decadron (dexamethasone) [x] Hydrocortisone has been prescribed to supplement your blood cortisol levels. It is important that you take this every day as prescribed. Do not stop this medication until re-evaluated by your neurosurgeon or day haul youth supervisor. [x] PPIs or H2 blockers - Gastrointestinal prophylaxis: medications such as Nexium (esomeprazole) and Pepcid (famotidine) PPIs or H2 blockers are commonly prescribed after surgery to protect your stomach while you are taking steroids. Once you have finished taking the steroids you may stop this medication. [] Stool softeners - Constipation relief: medications such as docusate or senakot-over the counter Stool softeners are commonly used after surgery to help make stools easier to pass. These medications can be obtained evxl-epl-fvxzfce and their use is recommended on an as needed basis for hard or difficult stools. They should be discontinued for loose stools and diarrhea. WHEN TO SEEK MEDICAL CARE: Cerebrospinal fluid leak: - Steady, clear drip from your nose or continuous drip and salty taste in your throat - Sometimes accompanied by a ???low pressure??? headache (a headache that starts when standing up and goes away when laying down) Signs or symptoms of an infection: - Fever over 101F - Redness, swelling, or increasing pain around your incision - Drainage of pus, blood, or clear fluid from your incision New neurologic symptoms: - Worsening headaches not controlled with your pain medication - Drowsiness, confusion, and lethargy - Visual changes - Difficulty speaking or slurred speech - Facial droop - New weakness or sensory changes - New unsteadiness when walking - Seizures Constipation not relieved by diet and over the counter stool softeners and laxatives Nausea/vomiting (upset stomach) not controlled with your anti-nausea medication Symptoms of a deep venous thrombosis (DVT) or pulmonary embolism (PE): - Swelling/warmth/redness of the leg - Pain in the leg, which can be worse with standing or walking - Chest pain or shortness of breath To help prevent a DVT: - Exercise regularly. Walking, at least several times daily, is helpful. - Ankle pump exercises (like pressing and releasing the gas pedal) should be done regularly. - Keep hydrated with water or other clear liquids (coffee/tea/cola can dehydrate you). - Avoid alcohol and crossing your legs. - Remember not to sit or lay in bed, while awake, for prolonged amounts of time. WOUND CARE: Nose/Nares - Do not blow your nose after surgery. - Sinus and nasal congestion, discomfort, and mild headache is common and expected after your surgery. - Use warm humidification, such as a warm, steamy shower, sauna, or topical warm, moist cloth over your face, and/or saline nasal spray sprayed gently into both nares to relieve congestion discomfort DIET: - You may resume your usual diet. - A well-balanced diet is recommended for wound healing. - Prune juice or prunes can be added to your diet to assist with any constipation. ACTIVITY: - Restrict strenuous activity (such as running, jumping, jogging, shoveling, lifting, etc.) until cleared by your surgical team DRIVING: [x] You may return to driving 2 weeks after surgery. [] Do NOT drive until cleared by Neurosurgery. FOLLOW UP PLAN: Please follow up in the Neurosurgery Clinic on at 11AM with Dr. England via a telehealthappointment. Please call the Neurosurgery Office at [phone] if you do not receive a scheduled appointment. Please follow up in the Endocrinology Clinic. Please call the Endocrinology Office at [phone] if you do not receive a scheduled appointment. Primary Reason for Hospitalization: Pituitary macroadenoma Condition at Discharge: stable HOW TO REACH NEUROSURGERY Office Hours: Sunday through Sunday, 8am-5pm. Call . On weekends or after office hours: Call [phone] and ask the roll up operator to page the Neurosurgery Resident/Advanced Practice Provider editor dictionary. IMPORTANT PHONE NUMBERS: Outpatient Nurse (Joy Saab) Inpatient Nurses Neurosurgical Resident/Advanced Practice Provider On-Call (after 5pm or before 8am) Neurosurgery offices (Sunday through Sunday between 8am-5pm): Adult Neurosurgery Dr. Chris England Pediatric Neurosurgery Dr. Kerry Méndez Advanced Practice Providers Mone Alarcon, Nurse Practitioner (outpatient) Laly Cortes, Physician Windows Vmware Engineer (inpatient) Minoo Quinn, Nurse Practitioner (inpatient) Tiffany Bustos Physician Windows Vmware Engineer (inpatient) Tiffany Godfrey, Physician Windows Vmware Engineer (inpatient) Trini Phelps, Nurse Practitioner (outpatient: vascular) Corrie Sheldon Physician Windows Vmware Engineer (outpatient: spine) Jose David Small, Nurse Practitioner (inpatient/outpatient) Kalen Mc, Physician Windows Vmware Engineer (outpatient) Carolina Davila, Nurse Practitioner (outpatient: neuro-oncology) General Instructions None Future Appointments and Orders Future Appointments and Orders Future Appointments Provider Department Dept Phone 05/02/2022 11:00 AM Thania England MD Neurosurgery at [facility] Arrive at: Home [phone] Please do not come in for this visit. Your provider will call you at the number you provided. Future Orders Complete By Expires Referral to Endocrinology [REF22 Custom] As directed Process Instructions: If no progress note charted, please enter Clinical details in comments. Scheduling Instructions: Questions: My question or request is: recurrent pituitary macroadenoma s/p resection, possible phoenix's Specialist Level of Involvement: Specialist Management Is patient being referred for thyroid nodule?: No Scheduled Appointments: Future Appointments Date Time Provider Department Center 05/02/2022 11:00 AM Thania England MD [facility] [id number] [facility] Primary Care Doctor: Nate Tariq MD [phone] Signed: FRANCESCO Roman 04/06/2022 documented in this encounter Discharge Instructions * Discharge Instructions* Epifanio Espinoza MD - 04/06/2022 1:09 PM EDT Sick Day rules for hydrocortisone Mild illness without fever: no change in dose. Illness with fever: If your temperature is raised, your steroid dose needs to be increased for the duration of the illness. Take extra hydrocortisone 20mg immediately, then 10mg 6 hourly. Vomiting or diarrhea: If you vomit once, take an extra 20mg of hydrocortisone by mouth. If vomitingpersists after you have taken the extra steroid dose, you must seek urgent medical attention: go to the Emergency Department Extremely unwell: Take an extra 20mg of Prednisolone OR 50mg of Hydrocortisone and seek medical advice. * Patient Instructions* Tiffany Bustos PA - 04/03/2022 7:01 AM EDT TRANSSPHENOIDAL DISCHARGE INSTRUCTIONS PRESCRIPTION INSTRUCTIONS: Please see the medication reconciliation list on this discharge summary for a current list of your medications. Stop the use of blood thinning medications until instructed otherwise by your surgical team. This includes medications known as antiplatelet, anticoagulant, and non-steroidal anti-inflammatory (NSAIDs) drugs. Common zmtc-xtz-ytlyktp medications which should be avoided include Aspirin, ibuprofen, and naproxen among others. These medications are sometimes combined with other drugs or are sold undera trade name. Common prescription medications which should be avoided include Plavix (clopidogrel) and Coumadin (warfarin) among others. The following medications are commonly prescribed after surgery. An [x] indicates that these medications have been prescribed for you. [x] Steroids - anti-inflammatory & hormone supplement: medications such as hydrocortisone, prednisone, and Decadron (dexamethasone) [x] Hydrocortisone has been prescribed to supplement your blood cortisol levels. It is important that you take this every day as prescribed. Do not stop this medication until re-evaluated by your neurosurgeon or day haul youth supervisor. [x] PPIs or H2 blockers - Gastrointestinal prophylaxis: medications such as Nexium (esomeprazole) and Pepcid (famotidine) PPIs or H2 blockers are commonly prescribed after surgery to protect your stomach while you are taking steroids. Once you have finished taking the steroids you may stop this medication. [] Stool softeners - Constipation relief: medications such as docusate or senakot-over the counter Stool softeners are commonly used after surgery to help make stools easier to pass. These medications can be obtained lbmy-lia-rkimypr and their use is recommended on an as needed basis for hard or difficult stools. They should be discontinued for loose stools and diarrhea. WHEN TO SEEK MEDICAL CARE: Cerebrospinal fluid leak: - Steady, clear drip from your nose or continuous drip and salty taste in your throat - Sometimes accompanied by a ???low pressure??? headache (a headache that starts when standing up and goes away when laying down) Signs or symptoms of an infection: - Fever over 101F - Redness, swelling, or increasing pain around your incision - Drainage of pus, blood, or clear fluid from your incision New neurologic symptoms: - Worsening headaches not controlled with your pain medication - Drowsiness, confusion, and lethargy - Visual changes - Difficulty speaking or slurred speech - Facial droop - New weakness or sensory changes - New unsteadiness when walking - Seizures Constipation not relieved by diet and over the counter stool softeners and laxatives Nausea/vomiting (upset stomach) not controlled with your anti-nausea medication Symptoms of a deep venous thrombosis (DVT) or pulmonary embolism (PE): - Swelling/warmth/redness of the leg - Pain in the leg, which can be worse with standing or walking - Chest pain or shortness of breath To help prevent a DVT: - Exercise regularly. Walking, at least several times daily, is helpful. - Ankle pump exercises (like pressing and releasing the gas pedal) should be done regularly. - Keep hydrated with water or other clear liquids (coffee/tea/cola can dehydrate you). - Avoid alcohol and crossing your legs. - Remember not to sit or lay in bed, while awake, for prolonged amounts of time. WOUND CARE: Nose/Nares - Do not blow your nose after surgery. - Sinus and nasal congestion, discomfort, and mild headache is common and expected after your surgery. - Use warm humidification, such as a warm, steamy shower, sauna, or topical warm, moist cloth over your face, and/or saline nasal spray sprayed gently into both nares to relieve congestion discomfort DIET: - You may resume your usual diet. - A well-balanced diet is recommended for wound healing. - Prune juice or prunes can be added to your diet to assist with any constipation. ACTIVITY: - Restrict strenuous activity (such as running, jumping, jogging, shoveling, lifting, etc.) until cleared by your surgical team DRIVING: [x] You may return to driving 2 weeks after surgery. [] Do NOT drive until cleared by Neurosurgery. FOLLOW UP PLAN: Please follow up in the Neurosurgery Clinic on at 11AM with Dr. England via a telehealthappointment. Please call the Neurosurgery Office at [phone] if you do not receive a scheduled appointment. Please follow up in the Endocrinology Clinic. Please call the Endocrinology Office at [phone] if you do not receive a scheduled appointment. Primary Reason for Hospitalization: Pituitary macroadenoma Condition at Discharge: stable HOW TO REACH NEUROSURGERY Office Hours: Sunday through Sunday, 8am-5pm. Call . On weekends or after office hours: Call [phone] and ask the roll up operator to page the Neurosurgery Resident/Advanced Practice Provider editor dictionary. IMPORTANT PHONE NUMBERS: Outpatient Nurse (Joy Saab) Inpatient Nurses Neurosurgical Resident/Advanced Practice Provider On-Call (after 5pm or before 8am) Neurosurgery offices (Sunday through Sunday between 8am-5pm): Adult Neurosurgery Dr. Chris England Pediatric Neurosurgery Dr. Kerry Méndez Advanced Practice Providers Mone Alarcon, Nurse Practitioner (outpatient) Laly Cortes, Physician Windows Vmware Engineer (inpatient) Minoo Quinn, Nurse Practitioner (inpatient) Tiffany Bustos, Physician Windows Vmware Engineer (inpatient) Tiffany Godfrey, Physician Windows Vmware Engineer (inpatient) Trini Phelps, Nurse Practitioner (outpatient: vascular) Corrie Sheldon, Physician Windows Vmware Engineer (outpatient: spine) Jose David Small, Nurse Practitioner (inpatient/outpatient) Kalen Mc, Physician Windows Vmware Engineer (outpatient) Carolina Davila, Nurse Practitioner (outpatient: neuro-oncology) documented in this encounter Medications at Time of Discharge Medication Sig Dispensed Refills Start Date End Date acetaminophen (Tylenol) 500 mg Tablet Take 2 tablets by mouth every 6 hours as needed for Pain. 30 tablet 1 04/06/2022 polyethylene glycoL (Miralax) 17 gram Powder in Packet Take 17 g by mouth daily as needed. 14 each 04/06/2022 hydrocortisone (CORTEF) 10 mg Tablet Take 20mg (2 tablets) at 8 am and take 10 mg (1 tablet) at 3pm 90 tablet 3 04/06/2022 documented as of this encounter Progress Notes * Preethi Ariza RN - 04/06/2022 1:19 PM EDT Pt educated on d/c summary,follow up and home care. Verbalized understanding No acute distress at this time. KINDRA removed. 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 Room searched no other personal item seen. Pt refuse wheelchair. Ambulated from unit accompanied by spouse and kids * Amy Frias MD - 04/06/2022 9:42 AM EDT NEUROSURGERY PROGRESS NOTE PLEASE PAGE [id number] WITH QUESTIONS ID: Amy Mccall is a 36 y.o. female with recurrent pituitary macroadenoma HD# 3 POD # 3 Days Post-Op 04/03/2022 transsphenoidal resection INTERVAL HX/ROS: No acute events reported overnight. Patient is neurologically stable. Denies GARCES. Nasal drainage very mild/mucous only on mustache dressing. UOP 600cc overnight, SG yesterday 1.020, Na 142 Cortisol down trending overall 6.6 (20.3) indicating good resection EXAM: GEN:NAD NEURO:AA+Ox3 Speech fluent and appropriate. PERRL. EOMI. Visual martin full to confrontation. No facial asymmetry Tongue midline MOTOR: RUE:5/5 LUE:5/5 RLE: 5/5 LLE: 5/5 No pronator drift LT sensation intact x 4 Mustache dressing with small amount of SS/mucous drainage A/P: Amy Mccall is a 36 y.o. female with recurrent pituitary macroadenoma. Recovering well postop. 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 No concern for DI at this time. -Neuro checks: q4h -Imaging: MRI completed -goal SBP < 160 -anti-HTN: hydralazine, labetalol, nicardipine gtt PRN -Diet: Regular diet. Drink to thirst -Voiding, harper removed -Stress ulcer prophylaxis. -DVT prophylaxis: SCDs. SQH today if stays -One additional cortisol level, if still low will plan to send home with hydrocortisone for supplementation. -DISPOSITION: Likely home today, follow up in clinic in 4-6 weeks with no imaging as well as with endocrinology -FULL CODE PROBLEM LIST: Pituitary macroadenoma MEDICATIONS: Scheduled Meds: ??? docusate sodium 100 mg Oral BID ??? pantoprazole EC 40 mg Oral Daily Or ??? pantoprazole 40 mg Intravenous Daily Continuous Infusions: PRN Meds: polyethylene glycoL, acetaminophen OR acetaminophen OR acetaminophen, labetaloL, hydrALAZINE, BUpivacaine-EPINEPHrine, cocaine, oxymetazoline, thrombin (Bovine), gelatin compressed Vitals: Temp: [36.6 ??C (97.9 ??F)-36.8 ??C (98.3 ??F)] Heart Rate: [58-86] Resp: [11-20] BP: (122-137)/(79-98) SpO2: [98 %-99 %] Heart Rate from SpO2: [59 bpm-81 bpm] BMI: Weight: 75.5 kg (166 lb 7.2 oz) (04/03/22 0631) BMI (Calculated): 26.88 BMI Classification: Over Weight I/O: I/O last 3 completed shifts: In: 1080 [P.O.:1080] Out: 1875 [Urine:1875] LABS: Recent Labs 04/06/22 0445 04/05/22 0106 04/04/22 0033 WBC 7.6 12.0* 10.6* HGB 10.9* 12.4 12.6 PLATELET 229 294 273 Recent Labs 04/06/22 0445 04/05/22 0647 04/05/22 0106 04/03/22 1801 04/03/22 1154 NA 142 144 140 < > 139 K 2.8* 4.4 3.8 < > 4.4 CL 113* 106 105 < > 105 CO2 23 27 24 < > 25 BUN -- -- -- -- 7* CREATININE -- -- -- -- 0.88 < > = values in this interval not displayed. No results for input(s): PT, INR in the last 72 hours. IMAGING: Results for orders placed or performed during the hospital encounter of 04/03/22 MRI Pituitary wwo Contrast (Exam End: 04/03/2022 4:35 PM) Impression Postoperative changes associated with partial resection of pituitary tumor with skull base invasion by a transsphenoidal approach. Thank you for letting us participate in the care of this patient. If you are a health care provider and have any questions regarding this report, please contact the number below. For patients who have questions please contact the health family day care provider that requested your imaging first. Electronically signed by: Hannah Mckeon MD, [facility] ([phone]), at 04/03/2022 5:12 PM Active Hospital Problems Diagnosis ??? Pituitary adenoma Resolved Hospital Problems No resolved problems to display. There are no active non-hospital problems to display for this patient. Amy Frias MD 04/06/2022 * Amy Frias MD - 04/05/2022 7:49 AM EDT NEUROSURGERY PROGRESS NOTE PLEASE PAGE [phone] WITH QUESTIONS ID: Amy Mccall is a 36 y.o. female with recurrent pituitary macroadenoma HD# 1 POD # 1 Day Post-Op 04/03/2022 transsphenoidal resection INTERVAL HX/ROS: No acute events reported overnight. Patient is neurologically stable. Denies GARCES. Nasal drainage very mild. UOP 415cc overnight, SG yesterday 1.010, Na 140 Cortisol down trending overall 22.9 from 27.3 EXAM: GEN:NAD NEURO:AA+Ox3 Speech fluent and appropriate. PERRL. EOMI. Visual martin full to confrontation. No facial asymmetry Tongue midline MOTOR: RUE:5/5 LUE:5/5 RLE: 5/5 LLE: 5/5 No pronator drift LT sensation intact x 4 Mustache dressing with small amount of SS drainage A/P: Amy Mccall is a 36 y.o. female with recurrent pituitary macroadenoma. Recovering well postop. Will plan to observe her today with continued Q6h cortisol to ensure that she does not requiresupplementation care home. No concern for DI at this time, will remove harper today. -Neuro checks: q4h -Imaging: MRI completed -goal SBP < 160 -anti-HTN: hydralazine, labetalol, nicardipine gtt PRN -Diet: Regular diet. Drink to thirst -Remove harper -Stress ulcer prophylaxis. -DVT prophylaxis: SCDs. -hold anticoagulation and antiplatelet -Continue cortisol lab q6h -DISPOSITION: 5W -FULL CODE PROBLEM LIST: Pituitary macroadenoma MEDICATIONS: Scheduled Meds: ??? docusate sodium 100 mg Oral BID ??? pantoprazole EC 40 mg Oral Daily Or ??? pantoprazole 40 mg Intravenous Daily Continuous Infusions: PRN Meds: polyethylene glycoL, acetaminophen OR acetaminophen OR acetaminophen, labetaloL, hydrALAZINE, BUpivacaine-EPINEPHrine, cocaine, oxymetazoline, thrombin (Bovine), gelatin compressed Vitals: Temp: [36.5 ??C (97.7 ??F)-36.9 ??C (98.4 ??F)] Heart Rate: [63-105] Resp: [13-23] BP: (111-129)/(81-97) SpO2: [96 %-99 %] Heart Rate from SpO2: [63 bpm-104 bpm] BMI: Weight: 75.5 kg (166 lb 7.2 oz) (04/03/22 0631) BMI (Calculated): 26.88 BMI Classification: Over Weight I/O: I/O last 3 completed shifts: In: 1720 [P.O.:1020; I.V.:700] Out: 2455 [Urine:2455] LABS: Recent Labs 04/04/22 0033 WBC 10.6* HGB 12.6 PLATELET 273 Recent Labs 04/04/22 1825 04/04/22 1235 04/04/22 0036 04/03/22 1801 04/03/22 1154 NA 139 139 137 < > 139 K 3.7 3.7 4.4 < > 4.4 CL 104 105 104 < > 105 CO2 24 Not Perf 25 < > 25 BUN -- -- -- -- 7* CREATININE -- -- -- -- 0.88 < > = values in this interval not displayed. No results for input(s): PT, INR in the last 72 hours. IMAGING: Results for orders placed or performed during the hospital encounter of 04/03/22 MRI Pituitary wwo Contrast (Exam End: 04/03/2022 4:35 PM) Impression Postoperative changes associated with partial resection of pituitary tumor with skull base invasion by a transsphenoidal approach. Thank you for letting us participate in the care of this patient. If you are a health care provider and have any questions regarding this report, please contact the number below. For patients who have questions please contact the health family day care provider that requested your imaging first. Electronically signed by: Hannah Mckeon MD, [facility] ([phone]), at 04/03/2022 5:12 PM Active Hospital Problems Diagnosis ??? Pituitary adenoma Resolved Hospital Problems No resolved problems to display. There are no active non-hospital problems to display for this patient. Amy Frias MD 04/04/2022 * Nnamdi Cifuentes MD - 04/04/2022 7:00 AM EDT NEUROSURGERY PROGRESS NOTE PLEASE PAGE [phone] WITH QUESTIONS ID: Amy Mccall is a 36 y.o. female with recurrent pituitary macroadenoma HD# 1 POD # 1 Day Post-Op 04/03/2022 transsphenoidal resection INTERVAL HX/ROS: No acute events reported overnight. Patient has no complaints this morning. Patient is neurologically stable. Patient tolerating PO ROS: Patient denies fever, chills, headache, nausea, vomiting, and bowel or bladder symptoms. EXAM: GEN:NAD NEURO:AA+Ox3 Speech fluent and appropriate. Naming and repetition intact. PERRL. EOMI. Visual martin full to confrontation. No facial asymmetry Tongue midline MOTOR: RUE:5/5 LUE:5/5 RLE: 5/5 LLE: 5/5 No pronator drift LT sensation intact x 4 Dressings dry and intact A/P: Amy Mccall is a 36 y.o. female with recurrent pituitary macroadenoma -Neuro checks: q2h -Imaging: MRI completed -goal SBP < 160 -anti-HTN: hydralazine, labetalol, nicardipine gtt PRN -Diet: Regular diet. Drink to thirst -Strict I&O q2h; nancy Harper -Stress ulcer prophylaxis. -DVT prophylaxis: SCDs. -hold anticoagulation and antiplatelet -Cortisol lab q6h -DISPOSITION: NSCU -FULL CODE PROBLEM LIST: Pituitary macroadenoma MEDICATIONS: Scheduled Meds: ??? docusate sodium 100 mg Oral BID ??? pantoprazole EC 40 mg Oral Daily Or ??? pantoprazole 40 mg Intravenous Daily Continuous Infusions: PRN Meds: polyethylene glycoL, acetaminophen OR acetaminophen OR acetaminophen, labetaloL, hydrALAZINE, BUpivacaine-EPINEPHrine, cocaine, oxymetazoline, thrombin (Bovine), gelatin compressed Vitals: Temp: [36.5 ??C (97.7 ??F)-36.9 ??C (98.4 ??F)] Heart Rate: [63-99] Resp: [13-23] BP: (111-135)/(81-97) SpO2: [96 %-100 %] Heart Rate from SpO2: [63 bpm-98 bpm] BMI: Weight: 75.5 kg (166 lb 7.2 oz) (04/03/22 0631) BMI (Calculated): 26.88 BMI Classification: Over Weight I/O: I/O last 3 completed shifts: In: 1000 [P.O.:300; I.V.:700] Out: 1855 [Urine:1855] LABS: Recent Labs 04/04/22 0033 WBC 10.6* HGB 12.6 PLATELET 273 Recent Labs 04/04/22 0036 04/03/22 1801 04/03/22 1154 NA 137 138 139 K 4.4 4.1 4.4 CL 104 103 105 CO2 25 23 25 BUN -- -- 7* CREATININE -- -- 0.88 No results for input(s): PT, INR in the last 72 hours. IMAGING: Results for orders placed or performed during the hospital encounter of 04/03/22 MRI Pituitary wwo Contrast (Exam End: 04/03/2022 4:35 PM) Impression Postoperative changes associated with partial resection of pituitary tumor with skull base invasion by a transsphenoidal approach. Thank you for letting us participate in the care of this patient. If you are a health care provider and have any questions regarding this report, please contact the number below. For patients who have questions please contact the health family day care provider that requested your imaging first. Electronically signed by: Hannah Mckeon MD, [facility] ([phone]), at 04/03/2022 5:12 PM Active Hospital Problems Diagnosis ??? Pituitary adenoma Resolved Hospital Problems No resolved problems to display. There are no active non-hospital problems to display for this patient. Nnamdi Cifuentes MD 04/04/2022 * Chetna Portillo RN - 04/03/2022 12:10 PM EDT Amy Mccall arrived to 527B @ 1200 from PACU. Oriented to room, call franklin within reach, educated on importance of using prior to getting OOB, AVSS, incision healing well, no significant drainage, belongings updated in eDH, bed locked in low position, purposeful hourly rounding, bed/chair alarmon. * Aziza Perez RN - 04/03/2022 11:18 AM EDT 1100: Awake and alert. VSS. Neuro intact, Denies any c/o of visual changes. Drsg cdi documented in this encounter H&P Notes * Nnamdi Cifuentes MD - 04/03/2022 7:03 AM EDT 24-HOUR UPDATE Amy Sandoval Mccall was seen in [facility]. The patient's history and physical exam have been reviewed and completed. There has been no interval change from that of the pre-operative history and physical exam done within the last 30 days. Denies angina/dyspnea/fevers or malaise within the last 14 days. On exam, cardiac ausculatation reveals RRR and lungs CTAB PERRL, EMOI, visual martin full to gross exam. All questions were answered. Stable for surgery as scheduled. documented in this encounter Miscellaneous Notes * Care Management Discharge - Keira Phelps RN - 04/06/2022 10:09 AM EDT CARE MANAGEMENT FINAL DISCHARGE NOTE Chart reviewed, care reviewed with primary team and at interdisciplinary rounds. Patient is medically ready for discharge to home with family support, no other d/c needs identified at this time. Needs for Transition of Care: Plan for discharge is: Home w/o Services Outpatient Agency/Support Group Needs: None Agency Referrals & Follow-up Care: none Transportation: family or friend will provide-via private vehicle Functional status prior to admission: Independent Home Environment: Others in the home: child(tatianna), dependent, spouse, pet(s). Current Living Arrangements: home/apartment/condo. Accessibility Concerns:2 story, 1 SOPHIE. Current Functional Ability: Independent DME used at home: none DME Needed at Discharge: none noted Patient is insured through: Primary Insurance: MVP Payor: MVP / Plan: MVP [place] / Product Type: *No Product type* / Secondary Insurance: N/A Prescription Coverage: Yes This plan was formulated with input from patient, pt and family (please identify family/friend involved if applicable) and team. All are in agreement with plan. Keira FLORES, RN Pager #[phone] * Plan of Care - Pablo Browne Jr., RN - 04/05/2022 4:45 AM EDT OUTCOME EVALUATION NOTE: ?? OUTCOME SUMMARY: ?? Pt A&Ox4. AVSS on RA. No pain. Dressing changed due to drainage amount. New dressing in place with small amount of serosanguinous drainage. Harper in place and draining well. ?? PLAN MOVING FORWARD: ?? Problem: Adult Inpatient Plan of Care Goal: Plan of Care Review Outcome: Ongoing (Interventions Implemented as Appropriate) Goal: Absence of Hospital-Acquired Illness or Injury Outcome: Ongoing (Interventions Implemented as Appropriate) Goal: Optimal Comfort and Wellbeing Outcome: Ongoing (Interventions Implemented as Appropriate) Goal: Readiness for Transition of Care Outcome: Ongoing (Interventions Implemented as Appropriate) * Initial Assessments - Cheli Hernandes RN - 04/04/2022 2:45 PM EDT Office of Care Management Initial Assessment Medical record reviewed. Plan of care and patient status discussed with direct care Registered Nurse and/or Care Team in multidisciplinary rounds. Reason for Hospitalization: Surgery Last COVID test: Present on Admission: ??? Pituitary adenoma Hospitalizations Within the Past 30 Days: no previous admission in last 30 days Patient receiving hospital care under Inpatient status. Admission order reviewed. Primary Insurance on file: [facility] Secondary Insurance on file:@ Primary care provider on file: Nate Tariq MD [phone] Pharmacy: [facility] [address] [address] Advance Care Planning: Attempt Cardiopulmonary Resuscitation - Inpatient <no information> -Advanced Directive: No, declines Current Functional Ability: Independent Functional Status Prior to Admission: Independent Home Environment: Others in the home: child(tatianna), dependent, spouse, pet(s). Current Living Arrangements: home/apartment/condo. Accessibility Concerns:2 story, 1 SOPHIE. (children ages 8,4: dog and two cats) Current DME: none [address] [place] [address] Social & Family Supports: All names listed below confirmed with patient as current and correct Extended Emergency Contact Information Primary Emergency Contact: WEI MCCALL Mobile Relation: Spouse Current Care Provided by: self Transportation: no concerns Transportation Anticipated: family or friend will provide, car, drives self Assessment: Patient with no apparent RNCM/SW needs at this time. No housing, transportation, insurance, resources concerns identified at this time. Supports in place to achieve a safe post-hospital transition. No identified barriers to accessing necessary care and/or follow-up after discharge. Plan: Patient to d/c to home via car/ when medically ready. Registered Nurse Restaurant Server / Editorial Manager will continue to follow patient???s progress and remain available if situation changes for coordination of care, psychosocial support and/or discharge planning. Office of Care Management Francine Hernandes RN BSN CM Neurology [employer] of Care Management Pager [phone] * Plan of Care - Chetna Portillo RN - 04/03/2022 5:39 PM EDT OUTCOME EVALUATION NOTE: OUTCOME SUMMARY: Pt A&Ox4. AVSS on RA. C/o mild pain, well controlled with PRN medications. Dressing changed due to drainage amount. New dressing in place with small amount of serosanguinous drainage. Harper in place and draining well. MRI completed. Q6H lab draws continued. Good PO intake PLAN MOVING FORWARD: VSQ2H NsachD7A I&OQ2H Cortisol, electrolyte, osmolality - Q6H lab draw Specific [place] Q24H * Consult Note - Epifanio Espinoza MD - 04/03/2022 2:23 PM EDT Images from the original note were not included. Endocrinology Consult Note Name: Amy Mccall : 1985 Date: 04/03/22 Reason for Consult: post-op recurrent pituitary macroadenoma resection HPI: Amy Mccall is a 36 y.o. 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 She initially had swelling in the hands and feet and was told to have thyroid problem. Her symptoms progress and when she developed vision changes. Imaging of her head was done and was found to have macroadenoma. She was then told that she had [place]'s disease. After surgical transphenoidal resection she did not need any steroids or any hormones. After surgery, patient has been doing well until recently in which she noted swelling in her hands and feet along with facial numbness and chest numbness, headache, and loss of taste but denied any changes in her vision. She was reevaluated in the ED and was found to have recurrent macroadenoma. Her brain MRI 03/13/22 showed pituitary tumor size 3.4 x 2.4 x 3.2 involved cavernous sinus bilaterally but not optic chiasm. Patient is still having menstrual periods but her cycle was shorter than before. She was seen in endocrinology clinic in March. Her pituitary hormones including TSH, FSH, LH, prolactin, IGF-I were normal but noted elevated ACTH with normal cortisol level. She was supposed to get DST during next clinic visit. She was admitted on 04/03/2022 for recurrent pituitary macroadenoma resection on 04/03. We are consulted for post-op recurrent pituitary macroadenoma resection. Review of Systems Constitutional: No tiredness, recent weight change, no heat or cold intolerance Endocrine: No thyroid problems. No abnormal sweating or flushing. No galactorrhea or breast tenderness. Normal sexual desire. Integument: No excessive hair growth, balding, acne or oily skin. No ulcerations. No easily bruising. Neurological: Headache, facial numbness, no weakness. No seizure, fainting or dizziness Eyes: No recent vision changes ENT: No dysphagia, dental issues Cardiovascular: No chest pain or palpitations Respiratory: No cough, wheezing, shortness of breath GI: Normal appetite. No nausea, vomiting, diarrhea, constipation : No frequent urinary tract infections or polyuria Musculoskeletal: swelling of hands and feet, no joint aches, muscle pain. No back pain Psychiatric: No depression, anxiety No past medical history on file. No past surgical history on file. No family history on file. Social History Socioeconomic History ??? Marital status: Spouse name: Not on file ??? Number of children: Not on file ??? Years of education: Not on file ??? Highest education level: Not on file Occupational History ??? Not on file Tobacco Use ??? Smoking status: Never Smoker ??? Smokeless tobacco: Never Used Vaping Use ??? Vaping Use: Never used Substance and Sexual Activity ??? Alcohol use: Not on file ??? Drug use: Not on file ??? Sexual activity: Not on file Other Topics Concern ??? Not on file Social History Narrative ??? Not on file Social Determinants of Health Financial Resource Strain: Not on file Food Insecurity: Not on file Transportation Needs: Not on file Physical Activity: Not on file Housing Stability: Not on file Current Medications: Scheduled Meds: ??? docusate sodium 100 mg Oral BID ??? pantoprazole EC 40 mg Oral Daily Or ??? pantoprazole 40 mg Intravenous Daily Continuous Infusions: PRN Meds:.polyethylene glycoL, acetaminophen OR acetaminophen OR acetaminophen, labetaloL, hydrALAZINE, BUpivacaine-EPINEPHrine, cocaine, oxymetazoline, thrombin (Bovine), gelatin compressed No Known Allergies Vitals BP 122/85 (BP Location (NBP): Right arm) Pulse 97 Temp 36.8 ??C (98.3 ??F) (Temporal) Resp 14 Ht 167.6 cm (5' 5.98) Wt 75.5 kg (166 lb 7.2 oz) LMP 03/08/2022 (Exact Date) SpO2 98% BMI 26.88 kg/m?? Physical Exam: General appearance: pleasant female pt, appears stated age, not in distress HEENT: anicteric, EOMI, MOOSE, no lymphadenopathy, moist mucus membranes CVS: +S1, S2. no murmurs, RRR Pulm: clear to auscultation BL Abd: soft, non-tender, non-distended, +bowel sounds, no rebound or guarding, no purple striae Extremities: 2+ pulses peripherally, no edema, no wounds over feet Spine: no spinal tenderness Neurological: Non-focal, no proximal muscle weakness Skin: tanned skin, no lesions, no violaceous striae Thyroid exam: no Tachycardia, lid lag, stare, proptosis, goiter, resting tremor. Warm dry skin. Thyroid gland: not enlarged Labs: Intake/Output Summary (Last 24 hours) at 04/03/2022 1428 Last data filed at 04/03/2022 1335 Gross per 24 hour Intake 700 ml Output 760 ml Net -60 ml Component Latest Ref Rng & Units 04/03/2022 04/03/2022 04/03/2022 03/21/2022 1:08 PM 11:54 AM 7:15 AM Glucose Lvl 65 - 199 mg/dL 88 BUN 8 - 18 mg/dL 7 (L) 12 Creatinine 0.70 - 1.20 mg/dL 0.88 0.86 Sodium 135 - 145 mmol/L 139 139 Potassium 3.5 - 5.0 mmol/L 4.4 4.0 Chloride 98 - 107 mmol/L 105 103 CO2 22 - 31 mmol/L 25 28 Anion Gap 5 - 15 mmol/L 9 8 Calcium 8.5 - 10.5 mg/dL 9.6 Estimated GFR >=60 mL/min/1.73 m?? 88 90 IgF-1 59 - 279 ng/mL 211 IGF-1 Z-score -2.0 - 2.0 SD 1.28 Estradiol pg/mL 79 LH mlU/ML 4.3 5.8 FSH mlU/ML 2.4 5.7 Cortisol mcg/dL 28.9 10.8 10.5 ACTH (Adrenocorticotropic Hormone) pg/mL 107 (H) Prolactin 4.8 - 23.3 ng/mL 5.8 4.8 Free T4 0.93 - 1.70 ng/dL 1.49 TSH 0.27 - 4.20 mcIU/mL 2.95 1.58 Osmolality 275 - 295 mOsm/kg 286 Spec [place] UA 1.005 - 1.030 1.010 Assessment and plan: A 36 y.o. 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 She was admitted on 04/03/2022 for recurrent pituitary macroadenoma resection on 04/03. We are consulted for post-op recurrent pituitary macroadenoma resection. 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 She had tumor resection today. Preop [...] DDAVP according to her volume status (hypovolemic). ?? Start hydrocortisone 25 mg twice daily ?? [...] endocrinology clinic to reevaluate for adrenal insufficiency Thank you for allowing us participate in the care of this patient. Patient was discussed with Dr. Henderson. Epifanio Espinoza MD [facility] [place] PGY-4, Fellow Pager #[phone] Associated attestation - Miquel Henderson MD - 04/05/2022 10:28 AM EDT Patient evaluated by me and . I agree with her above assessment and plan. Pt s/p presumed ACTH secreting adenoma removal, post surgical cortisol levels are in high normal range. TFTs, Prolactin, IGF-1 at good range, LH/SH are also in good range. Will need close endocrinology follow-up as very likely will need added medications to control hypercortisolemia. Other as per fellow. Miquel Henderson MD Professor * Brief Op Note - Nnamdi Cifuentes MD - 04/03/2022 9:57 AM EDT Brief Operative Note Patient Name: Amy Mccall : [id number] MR#: [id number] Case Date: 04/03/2022 Surgeon: Surgeon(s) and Role: * Thania England MD - Primary * Nnamdi Cifuentes MD - Resident Preoperative diagnosis: recurrent Phoenix's macroadenoma Postoperative diagnosis: recurrent [place]'s macroadenoma Procedure(s) (LRB): @TRANSSPHENOIDAL HYPOPHYSECTOMY (WRVU 23.37) (N/A) STEREOTACTIC COMPUTER-ASSTD NAVIGATIONAL CRANIAL INTRADURAL (WRVU 3.75) (N/A) GRAFTING OF AUTOLOGOUS SOFT TISSUE, OTHER, HARVESTED BY DIRECT EXCISION (FAT, DERMIS, OR FASCIA) (N/A) Anesthesia: General Local Findings: Adequate TSS for pituitary adenoma resection. Complications: None Estimated Blood Loss: 25 mL Specimens removed during surgery: Order Name Source Comment Collection Info Order Time SPECIMEN TO PATHOLOGY CSI 1 recurrent Phoenix's macroadenoma Sphenoid Sinus Tissue excision 04/03/2022 8:43 AM Time specimen removed from patient: 8:42 AM Number of tissue samples (in container) Multiple SPECIMEN TO PATHOLOGY recurrent Phoenix's macroadenoma Intradural excision 04/03/2022 9:32 AM Time specimen removed from patient: 9:32 AM Number of tissue samples (in container) 1 SPECIMEN TO PATHOLOGY CSI 1 recurrent [place]'s macroadenoma Recurrent Pituitary Tumor excision 04/03/2022 9:44 AM Time specimen removed from patient: 9:37 AM Number of tissue samples (in container) 1 Fluids: Intraprocedure Crystalloid Total None PRBCs: none (See Anesthesia Record/Report for Other Blood Products) Urine Output: 400 mL Drains: None Disposition: awakened from anesthesia, extubated and taken to the recovery room in a stable condition, having suffered no apparent untoward event. Condition: doing well without problems (Please see the Surgical Encounter Summary for any Implant and Specimen details pertinent to this patient.) Surgical Infection Prevention Bundle Used? N/A * Op Note - Thania England MD - 04/03/2022 8:27 AM EDT [facility] [place] Oper[place] Note Patient Name: Amy Mccall : [id number] MR#: [id number] Case Date: 04/03/2022 Surgeon: Surgeon(s) and Role: * Thania England MD - Primary * Nnamdi Cifuentes MD - Resident Preoperative diagnosis: recurrent Phoenix's macroadenoma Postoperative diagnosis: recurrent [place]'s macroadenoma Procedure(s) (LRB): @TRANSSPHENOIDAL HYPOPHYSECTOMY (WRVU 23.37) (N/A) STEREOTACTIC COMPUTER-ASSTD NAVIGATIONAL CRANIAL INTRADURAL (WRVU 3.75) (N/A) Anesthesia: General Estimated Blood Loss: 50 The patient is a 36-year-old female with a history of a prior transsphenoidal resection of a pituitary adenoma. This was performed at an outside hospital in 2017. Due to extenuating circumstances, the patient did not have follow-up over the past several years and Crystal presents with similar symptomsto her prior presentation. The patient relays that she was diagnosed with [place]'s disease at thattime. Repeat imaging shows a heterogeneous mass in the region of the posterior sphenoid and sellar region presumptively recurrent tumor. The patient agreed to proceed with reresection of a presumed recurrent ACTH macroadenoma Operative note The patient was anesthetized and placed on the operating table in a supine position. Three-point Mina pin fixation was applied to the cranium and the surface anatomy was registered into the navigational system. The nares were prepped and draped in the usual sterile fashion. Following a timeout, the right nares was entered. The middle turbinate was reflected laterally. Theposterior aspect of the septum had been previously resected and therefore we identified the openinginto the sphenoid ostia. We removed additional bone inferiorly to allow for better visualization within the intra sphenoidal compartment. Within the sphenoid sinus, we found largely redundant mucosa with what appeared to be a mucocele. These were easily removed. We found the posterior wall and the previous sellar defect. We extended the removal of bone inferiorly into the clivus and under the sella. 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 Bone was removed until no additional tumor was seen. We used ring curettes to clear out all tumor that could be visualized or palpated within the epidural space out to the lateral extent of the sella. On the patient's right side, there was a dural defect and this led us into the intradural space. Once again there was additional tumor largely on the patient's right side which was removed with additional ring curettes. At the conclusion, we saw no additional tumor. No evidence of CSF leak was seen. The area was liberally irrigated. A small piece of Gelfoam was placed over the dura and DuraSeal was applied. The retractors were then removed, the middle turbinates were splinted open with Gelfoam and the septum was realigned to its normal position. The patient was extubated and transferred to the recovery room in stable condition Attestation: Case Date: 04/03/2022 I was present and I participated during the entire procedure (does not need to include opening and closing). THANIA ENGLAND MD 04/03/2022 documented in this encounter Plan of Treatment Scheduled Referrals Name Type Priority Associated Diagnoses Order Schedule Referral to Endocrinology Outpatient Referral Routine Pituitary adenoma Ordered: 04/06/2022 documented as of this encounter Procedures Procedure Name Priority Date/Time Associated Diagnosis Comments HC CORTISOL, BLOOD Routine 04/06/2022 7: 35 AM EDT HEMOGRAM Routine 04/06/2022 4:45 AM EDT DIFFERENTIAL, AUTOMATED Routine 04/06/20 4:45 AM EDT HC CBC,PLT & AUTO DIFF Routine 4:45 AM EDT HC OSMOLALITY Routine 04/06/2022 4:45 AM EDT ELECTROLYTES PANEL Routine 04/06/2022 4: 45 AM EDT HC CORTISOL, BLOOD Routine 04/05/2022 9: 05 PM EDT HC VENIPUNCTURE Routine 04/05/2022 3:35 PM EDT SPECIFIC GRAVITY, URINE Routine 04/05/20 1:35 PM EDT OSMOLALITY Routine 04/05/2022 6:47 AM EDT HC VENIPUNCTURE Routine 04/05/2022 6:47 AM EDT ELECTROLYTES PANEL Routine 04/05/2022 6: 47 AM EDT HEMOGRAM Routine 04/05/2022 1:06 AM EDT DIFFERENTIAL, AUTOMATED Routine 04/05/20 1:06 AM EDT HC CBC,PLT & AUTO DIFF Routine 1:06 AM EDT HC OSMOLALITY Routine 04/05/2022 1:06 AM EDT HC VENIPUNCTURE Routine 04/05/2022 1:06 AM EDT ELECTROLYTES PANEL Routine 04/05/2022 1: 06 AM EDT HC OSMOLALITY Routine 04/04/2022 6:25 PM EDT HC VENIPUNCTURE Routine 04/04/2022 6:25 PM EDT ELECTROLYTES PANEL Routine 04/04/2022 6: 25 PM EDT SPECIFIC GRAVITY, URINE Routine 04/04/20 3:53 PM EDT HC OSMOLALITY Routine 04/04/2022 12:35 PM EDT HC CORTISOL, BLOOD Routine 04/04/2022 12 :35 PM EDT ELECTROLYTES PANEL Routine 04/04/2022 12 :35 PM EDT HC CORTISOL, BLOOD STAT 04/04/2022 8: 33 AM EDT HC OSMOLALITY Routine 04/04/2022 12:36 AM EDT HC CORTISOL, BLOOD Routine 04/04/2022 12 :36 AM EDT HC VENIPUNCTURE Routine 04/04/2022 12:36 AM EDT HEMOGRAM Routine 04/04/2022 12:33 AM EDT DIFFERENTIAL, AUTOMATED Routine 04/04/20 12:33 AM EDT HC VENIPUNCTURE Routine 04/04/2022 12:33 AM EDT HC OSMOLALITY Routine 04/03/2022 6:01 PM EDT HC CORTISOL, BLOOD Routine 04/03/2022 6: 01 PM EDT HC VENIPUNCTURE Routine 04/03/2022 6:01 PM EDT MRI PITUITARY WWO CONTRAST Routine 04/03 4:35 PM EDT SPECIFIC GRAVITY, URINE Routine 04/03/20 1:08 PM EDT HC CREATININE Routine 04/03/2022 11:54 AM EDT HC UREA NITROGEN, SERUM Routine 04/03/20 11:54 AM EDT HC OSMOLALITY Routine 04/03/2022 11:54 AM EDT HC CORTISOL, BLOOD Routine 04/03/2022 11 :54 AM EDT HC VENIPUNCTURE Routine 04/03/2022 11:54 AM EDT SPECIMEN TO PATHOLOGY Routine 04/03/2022 9:44 AM EDT SPECIMEN TO PATHOLOGY Routine 04/03/2022 9:32 AM EDT SURGICAL PATHOLOGY REPORT Routine 2021 8:43 AM EDT SPECIMEN TO PATHOLOGY Routine 04/03/2022 8:43 AM EDT HC PCH ADRENOCORTICOTROPIC HORMONE Routine 04/03/2022 8:10 AM EDT Stereotactic Cptr Asstd Px Cranial, Intradural (80614) Yes 04/03/2022 7:38 AM EDT Pituitary adenoma Excis Pituitary, Transnasal/Septal (08437) Yes 04/03/2022 7:38 AM EDT Pituitary adenoma LAVENDER TUBE HOLD Routine 04/03/2022 7: 15 AM EDT HC PROLACTIN ASSAY, SERUM Routine 2021 7:15 AM EDT HC THYROID STIMULATING HORMONE, SERUM Routine 04/03/2022 7:15 AM EDT HC LH ASSAY, SERUM Routine 04/03/2022 7: 15 AM EDT HC FSH ASSAY, SERUM Routine 04/03/2022 7 :15 AM EDT HC CORTISOL, BLOOD STAT 04/03/2022 7: 15 AM EDT STEREOTACTIC COMPUTER-ASSTD NAVIGATIONAL CRANIAL INTRADURAL Routine 04/03/2022 6:24 AM EDT Pituitary adenoma TRANSSPHENOIDAL HYPOPHYSECTOMY Routine 04/03/2022 6:24 AM EDT Pituitary adenoma documented in this encounter Results * Cortisol (04/06/2022 7:35 AM EDT) Cortisol 7.0 mcg/dL [facility] Comment: Reference ranges: ??AM (6-10am): ??4.8-19.5 mcg/dL ??PM (4-8pm) : ??2.5-11.9 mcg/dL Blood 04/06/2022 7:35 AM EDT 04/06/2022 7:48 AM EDT Narrative Resulting Agency Comment Spec In Lab Thania England MD CHEMISTRY ORDERABLES [facility] [place] [address] * (ABNORMAL) Differential, Automated (04/06/2022 4:45 AM EDT) Neutrophil % 48.2 % [facility] Neutrophil Absolute 3.67 1.70 - 6.10 x10(3)/mc L [facility] Lymph % 39.7 % [facility] Lymphocytes Abs 3.0 0.9 - 3.2 x10(3)/ L [facility] Monocyte % 9.1 % [facility] Monocyte Abs 0.7 0.3 - 0.9 x10(3)/ L [facility] Eos % 1.6 % [facility] Eosinophils Abs 0.1 0.0 - 0.4 x10(3)/[facility] Basophil % 0.5 % [facility] Baso Absolute 0.0 0.0 - 0.1 x10(3)/[facility] Immature Gran % 0.90 % [facility] Comment: Immature granulocytes(IG's)percentage and absolute count will include metamyelocytes, myelocytes, and promyelocytes. Blood smears from CBCs yielding IG's will be scanned manually for concordance. If this scan disagrees with the automated IG or if promyelocytes are noted, a manual differential will be performed. Immature Gran Absolute 0.07(H) 0.00 - 0.04 x10(3)/[facility] Blood 04/06/2022 4:45 AM EDT 04/06/2022 5:01 AM EDT Narrative Resulting Agency Comment Spec In Lab Nnamdi Cifuentes MD HEMATOLOGY ORDERABLE S Performing Organization Address City/State/[facility] Co de Phone Number [facility] [place] [address] * (ABNORMAL) Hemogram (04/06/2022 4:45 AM EDT) White Blood Cell 7.6 4.0 - 9.5 x10(3)/ L [facility] Red Blood Cell 3.57(L) 4.00 - 5.21 x10(6)/ L [facility] Hemoglobin 10.9(L) 11.7 - 15.5 g/dL [facility] Hematocrit 31.7(L) 35.7 - 45.8 % [facility] Mean Cell Volume 88.8 82.6 - 94.4 fL [facility] Mean Cell Hemoglobin 30.5 27.1 - 32.0 pg [facility] Mean Cell Hemoglobin Concentration 34.4 31.7 - 35.0 g/dL [facility] Platelet 229 145 - 357 x10(3)/mc L [facility] RDW Standard Deviation 41.9 37.0 - 46.0 fL [facility] RDW coefficient of variation 12.8 11.5 - 14.1 % [facility] Mean Platelet Volume 9.8 7.6 - 12.9 fL [facility] NRBC% auto 0.0 % [facility] NRBC Absolute 0.000 0.000 - 0.000 x10(3)/mc L [facility] Blood 04/06/2022 4:45 AM EDT 04/06/2022 5:01 AM EDT Narrative Resulting Agency Comment Spec In Lab Nnamdi Cifuentes MD HEMATOLOGY ORDERABLE S Performing Organization Address City/[facility]/ZIP Co de Phone Number [facility] [place] [address] * Osmolality (04/06/2022 4:45 AM EDT) Osmolality 286 275 - 295 mOsm/kg [facility] Blood 04/06/2022 4:45 AM EDT 04/06/2022 5:01 AM EDT Narrative Resulting Agency Comment Spec In Lab Thania England MD CHEMISTRY ORDERABLES Performing Organization Address City/[facility]/ZIP Co de Phone Number [facility] [place] [address] * (ABNORMAL) Electrolytes panel (04/06/2022 4:45 AM EDT) Sodium 142 135 - 145 mmol/L [facility] Potassium 2.8(Criti joanie) 3.5 - 5.0 mmol/L [facility] Comment: result rechecked-sf Called by: pierce, Read back by: charline liu, Date/Time:04/06/22 05:39. Please note: ??Patients with WBC >100,000 may have falsely elevated Potassium levels. ??For accurate Potassium quantification in these patients send serum separator tube (gold top) for subsequent determinations. ??Contact the Clinical Chemistry Laboratory if there are any questions. Chloride 113(H) 98 - 107 mmol/L [facility] Carbon Dioxide 23 22 - 31 mmol/L [facility] Anion Gap 6 5 - 15 mmol/L [facility] Blood 04/06/2022 4:45 AM EDT 04/06/2022 5:01 AM EDT Narrative Resulting Agency Comment Spec In Lab Thania England MD CHEMISTRY ORDERABLES Performing Organization Address [facility] Co de Phone Number [facility] [place] [address] * Cortisol (04/05/2022 9:05 PM EDT) Cortisol 6.6 mcg/dL [facility] Comment: Reference ranges: ??AM (6-10am): ??4.8-19.5 mcg/dL ??PM (4-8pm) : ??2.5-11.9 mcg/dL Blood 04/05/2022 9:05 PM EDT 04/05/2022 9:16 PM EDT Narrative Resulting Agency Comment Spec In Lab Thania England MD CHEMISTRY ORDERABLES Performing Organization Address [facility] Co de Phone Number [facility] [place] [address] * Cortisol (04/05/2022 3:35 PM EDT) Cortisol 12.2 mcg/dL [facility] Comment: Reference ranges: ??AM (6-10am): ??4.8-19.5 mcg/dL ??PM (4-8pm) : ??2.5-11.9 mcg/dL Blood 04/05/2022 3:35 PM EDT 04/05/2022 4:04 PM EDT Narrative Resulting Agency Comment Spec In Lab Thania England MD CHEMISTRY ORDERABLES Performing Organization Address [facility] Co de Phone Number [facility] [place] [address] * Specific [place], Urine (04/05/2022 1:35 PM EDT) Specific [place] Urine Automated 1.025 1.005 - 1.030 [facility] Urine 04/05/2022 1:35 PM EDT 04/05/2022 2:20 PM EDT Narrative Resulting Agency Comment Spec In Lab Thania England MD URINE ORDERABLES Performing Organization Address [facility] de Phone Number [facility] [place] [address] * Electrolytes panel (04/05/2022 6:47 AM EDT) Sodium 144 135 - 145 mmol/L [facility] Potassium 4.4 3.5 - 5.0 mmol/L [facility] Comment: Please note: ??Patients with WBC >100,000 may have falsely elevated Potassium levels. ??For accurate Potassium quantification in these patients send serum separator tube (gold top) for subsequent determinations. ??Contact the Clinical Chemistry Laboratory if there are any questions. Chloride 106 98 - 107 mmol/L [facility] Carbon Dioxide 27 22 - 31 mmol/L [facility] Anion Gap 11 5 - 15 mmol/L [facility] Blood Venous Draw / Unknown 04/05/2022 6:47 AM EDT 04/05/2022 6:53 AM EDT Narrative Resulting Agency Comment Spec In Lab Nnamdi Cifuentes MD CHEMISTRY ORDERABLES Performing Organization Address [facility]/ZIP Co de Phone Number [facility] [place] [address] * Osmolality (04/05/2022 6:47 AM EDT) Pathologist [facility] Osmolality 294 275 - 295 mOsm/kg [facility] Blood Venous Draw / Unknown 04/05/2022 6:47 AM EDT 04/05/2022 6:53 AM EDT Narrative Resulting Agency Comment Spec In Lab Nnamdi Cifuentes MD CHEMISTRY ORDERABLES Performing Organization Address [facility] de Phone Number [facility] [place] [address] * Cortisol (04/05/2022 6:47 AM EDT) [facility] Cortisol 20.3 mcg/dL [facility] Comment: Reference ranges: ??AM (6-10am): ??4.8-19.5 mcg/dL ??PM (4-8pm) : ??2.5-11.9 mcg/dL Blood 04/05/2022 6:47 AM EDT 04/05/2022 6:53 AM EDT Narrative Resulting Agency Comment Spec In Lab Thania England MD CHEMISTRY ORDERABLES Performing Organization Address [facility] de Phone Number [facility] [place] [address] * (ABNORMAL) Differential, Automated (04/05/2022 1:06 AM EDT) [facility] Neutrophil % 73.3 % [facility] Neutrophil Absolute 8.82(H) 1.70 - 6.10 x10(3)/mc L [facility] Lymph % 18.3 % [facility] Lymphocytes Abs 2.2 0.9 - 3.2 x10(3)/mc L [facility] Monocyte % 7.2 % [facility] Monocyte Abs 0.9 0.3 - 0.9 x10(3)/ L [facility] Eos % 0.2 % [facility] Eosinophils Abs 0.0 0.0 - 0.4 x10(3)/[facility] Basophil % 0.2 % [facility] Baso Absolute 0.0 0.0 - 0.1 x10(3)/[facility] Immature Gran % 0.80 % [facility] Comment: Immature granulocytes(IG's)percentage and absolute count will include metamyelocytes, myelocytes, and promyelocytes. Blood smears from CBCs yielding IG's will be scanned manually for concordance. If this scan disagrees with the automated IG or if promyelocytes are noted, a manual differential will be performed. Immature Gran Absolute 0.10(H) 0.00 - 0.04 x10(3)/[facility] Blood 04/05/2022 1:06 AM EDT 04/05/2022 1:16 AM EDT Narrative Resulting Agency Comment Spec In Lab Nnamdi Cifuentes MD HEMATOLOGY ORDERABLE S [facility] [place] [address] * (ABNORMAL) Hemogram (04/05/2022 1:06 AM EDT) White Blood Cell 12.0(H) 4.0 - 9.5 x10(3)/ L [facility] Red Blood Cell 4.06 4.00 - 5.21 x10(6)/ L [facility] Hemoglobin 12.4 11.7 - 15.5 g/dL [facility] Hematocrit 36.0 35.7 - 45.8 % [facility] Mean Cell Volume 88.7 82.6 - 94.4 fL [facility] Mean Cell Hemoglobin 30.5 27.1 - 32.0 pg [facility] Mean Cell Hemoglobin Concentration 34.4 31.7 - 35.0 g/dL [facility] Platelet 294 145 - 357 x10(3)/mc L [facility] RDW Standard Deviation 42.2 37.0 - 46.0 [facility] RDW coefficient of variation 13.0 11.5 - 14.1 % [facility] Mean Platelet Volume 9.8 7.6 - 12.9 [facility] NRBC% auto 0.0 % [facility] NRBC Absolute 0.000 0.000 - 0.000 x10(3)/mc L [facility] Blood 04/05/2022 1:06 AM EDT 04/05/2022 1:16 AM EDT Narrative Resulting Agency Comment Spec In Lab Nnamdi Cifuentes MD HEMATOLOGY ORDERABLE S Performing Organization Address City/[facility]/ZIP Co de Phone Number [facility] [place] [address] * Osmolality (04/05/2022 1:06 AM EDT) Osmolality 290 275 - 295 mOsm/kg [facility] Blood 04/05/2022 1:06 AM EDT 04/05/2022 1:16 AM EDT Narrative Resulting Agency Comment Spec In Lab Thania England MD CHEMISTRY ORDERABLES Performing Organization Address [facility]/ZIP Co de Phone Number [facility] [place] [address] * Electrolytes panel (04/05/2022 1:06 AM EDT) Sodium 140 135 - 145 mmol/L [facility] Potassium 3.8 3.5 - 5.0 mmol/L [facility] Comment: Please note: ??Patients with WBC >100,000 may have falsely elevated Potassium levels. ??For accurate Potassium quantification in these patients send serum separator tube (gold top) for subsequent determinations. ??Contact the Clinical Chemistry Laboratory if there are any questions. Chloride 105 98 - 107 mmol/L [facility] Carbon Dioxide 24 22 - 31 mmol/L [facility] Anion Gap 11 5 - 15 mmol/L [facility] Blood 04/05/2022 1:06 AM EDT 04/05/2022 1:16 AM EDT Narrative Resulting Agency Comment Spec In Lab Thania England MD CHEMISTRY ORDERABLES Performing Organization Address [facility] Co de Phone Number [facility] [place] [address] * Cortisol (04/05/2022 1:06 AM EDT) Cortisol 22.9 mcg/dL [facility] Comment: Reference ranges: ??AM (6-10am): ??4.8-19.5 mcg/dL ??PM (4-8pm) : ??2.5-11.9 mcg/dL Blood 04/05/2022 1:06 AM EDT 04/05/2022 1:16 AM EDT Narrative Resulting Agency Comment Spec In Lab Thania England MD CHEMISTRY ORDERABLES Performing Organization Address [facility] Co de Phone Number [facility] [place] [address] * Cortisol (04/04/2022 6:25 PM EDT) Cortisol 27.3 mcg/dL [facility] Comment: Reference ranges: ??AM (6-10am): ??4.8-19.5 mcg/dL ??PM (4-8pm) : ??2.5-11.9 mcg/dL Blood 04/04/2022 6:25 PM EDT 04/04/2022 6:32 PM EDT Narrative Resulting Agency Comment Spec In Lab Thania England MD CHEMISTRY ORDERABLES Performing Organization Address [facility]/ZIP Co de Phone Number [facility] [place] [address] * Osmolality (04/04/2022 6:25 PM EDT) Osmolality 289 275 - 295 mOsm/kg [facility] Blood 04/04/2022 6:25 PM EDT 04/04/2022 6:32 PM EDT Narrative Resulting Agency Comment Spec In Lab Thania England MD CHEMISTRY ORDERABLES Performing Organization Address [facility] Co de Phone Number [facility] [place] [address] * Electrolytes panel (04/04/2022 6:25 PM EDT) Pathologist [facility] Sodium 139 135 - 145 mmol/L [facility] Potassium 3.7 3.5 - 5.0 mmol/L [facility] Comment: Please note: ??Patients with WBC >100,000 may have falsely elevated Potassium levels. ??For accurate Potassium quantification in these patients send serum separator tube (gold top) for subsequent determinations. ??Contact the Clinical Chemistry Laboratory if there are any questions. Chloride 104 98 - 107 mmol/L [facility] Carbon Dioxide 24 22 - 31 mmol/L [facility] Anion Gap 11 5 - 15 mmol/L [facility] Blood 04/04/2022 6:25 PM EDT 04/04/2022 6:32 PM EDT Narrative Resulting Agency Comment Spec In Lab Thania England MD CHEMISTRY ORDERABLES Performing Organization Address [facility] Co de Phone Number [facility] [place] [address] * Specific [place], Urine (04/04/2022 3:53 PM EDT) Specific [place] Urine Automated 1.010 1.005 - 1.030 [facility] Urine 04/04/2022 3:53 PM EDT 04/04/2022 4:10 PM EDT Narrative Resulting Agency Comment Spec In Lab Thania England MD URINE ORDERABLES Performing Organization Address [facility]/ZIP Co de Phone Number [facility] [place] [address] * Osmolality (04/04/2022 12:35 PM EDT) Osmolality 286 275 - 295 mOsm/kg [facility] Blood 04/04/2022 12:3 5 PM EDT 04/04/2022 12:41 PM EDT Narrative Resulting Agency Comment Spec In Lab Thania England MD CHEMISTRY ORDERABLES Performing Organization Address [facility] de Phone Number [facility] [place] [address] * Electrolytes panel (04/04/2022 12:35 PM EDT) Sodium 139 135 - 145 mmol/L [facility] Potassium 3.7 3.5 - 5.0 mmol/L [facility] Comment: Please note: ??Patients with WBC >100,000 may have falsely elevated Potassium levels. ??For accurate Potassium quantification in these patients send serum separator tube (gold top) for subsequent determinations. ??Contact the Clinical Chemistry Laboratory if there are any questions. Chloride 105 98 - 107 mmol/L [facility] Carbon Dioxide Not Perf 22 - 31 [facility] Comment:Add-on request. Samp le too old to perform test. Anion Gap Unable to Calculate 5 - 15 mmol/L [facility] Blood 04/04/2022 12:3 5 PM EDT 04/04/2022 12:41 PM EDT Narrative Resulting Agency Comment Spec In Lab Thania England MD CHEMISTRY ORDERABLES Performing Organization Address [facility]/ZIP Co de Phone Number [facility] [place] [address] * Cortisol (04/04/2022 12:35 PM EDT) Cortisol 36.2 mcg/dL [facility] Comment: Reference ranges: ??AM (6-10am): ??4.8-19.5 mcg/dL ??PM (4-8pm) : ??2.5-11.9 mcg/dL Blood 04/04/2022 12:3 5 PM EDT 04/04/2022 12:41 PM EDT Narrative Resulting Agency Comment Spec In Lab Thania England MD CHEMISTRY ORDERABLES Performing Organization Address [facility] de Phone Number [facility] [place] [address] * Cortisol (04/04/2022 8:33 AM EDT) Cortisol 35.2 mcg/dL [facility] Comment: Reference ranges: ??AM (6-10am): ??4.8-19.5 mcg/dL ??PM (4-8pm) : ??2.5-11.9 mcg/dL Blood 04/04/2022 8:33 AM EDT 04/04/2022 8:42 AM EDT Narrative Resulting Agency Comment Spec In Lab Thania England MD CHEMISTRY ORDERABLES Performing Organization Address [facility] Co de Phone Number [facility] [place] [address] * Osmolality (04/04/2022 12:36 AM EDT) Osmolality 287 275 - 295 mOsm/kg [facility] Blood 04/04/2022 12:3 6 AM EDT 04/04/2022 12:46 AM EDT Narrative Resulting Agency Comment Spec In Lab Thania England MD CHEMISTRY ORDERABLES Performing Organization Address [facility]/ZIP Co de Phone Number [facility] [place] [address] * Electrolytes panel (04/04/2022 12:36 AM EDT) Sodium 137 135 - 145 mmol/L [facility] Potassium 4.4 3.5 - 5.0 mmol/L [facility] Comment: Please note: ??Patients with WBC >100,000 may have falsely elevated Potassium levels. ??For accurate Potassium quantification in these patients send serum separator tube (gold top) for subsequent determinations. ??Contact the Clinical Chemistry Laboratory if there are any questions. Chloride 104 98 - 107 mmol/L [facility] Carbon Dioxide 25 22 - 31 mmol/L [facility] Anion Gap 8 5 - 15 mmol/L [facility] Blood 04/04/2022 12:3 6 AM EDT 04/04/2022 12:46 AM EDT Narrative Resulting Agency Comment Spec In Lab Thania England MD CHEMISTRY ORDERABLES Performing Organization Address City/[facility]/ZIP Co de Phone Number [facility] [place] [address] * Cortisol (04/04/2022 12:36 AM EDT) Pathologist [facility] Cortisol 32.4 mcg/dL [facility] Comment: Reference ranges: ??AM (6-10am): ??4.8-19.5 mcg/dL ??PM (4-8pm) : ??2.5-11.9 mcg/dL Blood 04/04/2022 12:3 6 AM EDT 04/04/2022 12:46 AM EDT Narrative Resulting Agency Comment Spec In Lab Thania England MD CHEMISTRY ORDERABLES Performing Organization Address City/[facility]/ZIP Co de Phone Number [facility] [place] [address] * (ABNORMAL) Differential, Automated (04/04/2022 12:33 AM EDT) Neutrophil % 80.7 % [facility] Neutrophil Absolute 8.53(H) 1.70 - 6.10 x10(3)/[facility] Lymph % 14.0 % [facility] Lymphocytes Abs 1.5 0.9 - 3.2 x10(3)/[facility] Monocyte % 4.6 % [facility] Monocyte Abs 0.5 0.3 - 0.9 x10(3)/[facility] Eos % 0.0 % [facility] Eosinophils Abs 0.0 0.0 - 0.4 x10(3)/[facility] Basophil % 0.2 % [facility] Baso Absolute 0.0 0.0 - 0.1 x10(3)/[facility] Immature Gran % 0.50 % [facility] Comment: Immature granulocytes(IG's)percentage and absolute count will include metamyelocytes, myelocytes, and promyelocytes. Blood smears from CBCs yielding IG's will be scanned manually for concordance. If this scan disagrees with the automated IG or if promyelocytes are noted, a manual differential will be performed. Immature Gran Absolute 0.05(H) 0.00 - 0.04 x10(3)/[facility] Blood 04/04/2022 12:3 3 AM EDT 04/04/2022 12:46 AM EDT Narrative Resulting Agency Comment Spec In Lab Nnamdi Cifuentes MD HEMATOLOGY ORDERABLE S [facility] [place] [address] * (ABNORMAL) Hemogram (04/04/2022 12:33 AM EDT) Pathologist [facility] White Blood Cell 10.6(H) 4.0 - 9.5 x10(3)/[facility] Red Blood Cell 4.22 4.00 - 5.21 x10(6)/mc L [facility] Hemoglobin 12.6 11.7 - 15.5 g/dL [facility] Hematocrit 37.4 35.7 - 45.8 % [facility] Mean Cell Volume 88.6 82.6 - 94.4 fL [facility] Mean Cell Hemoglobin 29.9 27.1 - 32.0 pg [facility] Mean Cell Hemoglobin Concentration 33.7 31.7 - 35.0 g/dL [facility] Platelet 273 145 - 357 x10(3)/mc L [facility] RDW Standard Deviation 41.8 37.0 - 46.0 fL [facility] RDW coefficient of variation 12.9 11.5 - 14.1 % [facility] Mean Platelet Volume 9.8 7.6 - 12.9 fL [facility] NRBC% auto 0.0 % [facility] NRBC Absolute 0.000 0.000 - 0.000 x10(3)/mc L [facility] Blood 04/04/2022 12:3 3 AM EDT 04/04/2022 12:46 AM EDT Narrative Resulting Agency Comment Spec In Lab Nnamdi Cifuentes MD HEMATOLOGY ORDERABLE S [facility] [place] [address] * Osmolality (04/03/2022 6:01 PM EDT) Osmolality 295 275 - 295 mOsm/kg [facility] Blood 04/03/2022 6:01 PM EDT 04/03/2022 6:10 PM EDT Narrative Resulting Agency Comment Spec In Lab Thania England MD CHEMISTRY ORDERABLES [facility] [place] [address] * Electrolytes panel (04/03/2022 6:01 PM EDT) Sodium 138 135 - 145 mmol/L [facility] Potassium 4.1 3.5 - 5.0 mmol/L [facility] Comment: Please note: ??Patients with WBC >100,000 may have falsely elevated Potassium levels. ??For accurate Potassium quantification in these patients send serum separator tube (gold top) for subsequent determinations. ??Contact the Clinical Chemistry Laboratory if there are any questions. Chloride 103 98 - 107 mmol/L [facility] Carbon Dioxide 23 22 - 31 mmol/L [facility] Anion Gap 12 5 - 15 mmol/L [facility] Blood 04/03/2022 6:01 PM EDT 04/03/2022 6:10 PM EDT Narrative Resulting Agency Comment Spec In Lab Thania England MD CHEMISTRY ORDERABLES Performing Organization Address City/[facility]/ZIP Co de Phone Number [facility] [place] [address] * Cortisol (04/03/2022 6:01 PM EDT) Cortisol 30.1 mcg/dL [facility] Comment: Reference ranges: ??AM (6-10am): ??4.8-19.5 mcg/dL ??PM (4-8pm) : ??2.5-11.9 mcg/dL Blood 04/03/2022 6:01 PM EDT 04/03/2022 6:10 PM EDT Narrative Resulting Agency Comment Spec In Lab Thania England MD CHEMISTRY ORDERABLES Performing Organization Address [facility] Co de Phone Number [facility] [place] [address] * MRI Pituitary wwo Contrast (04/03/2022 4:35 PM EDT) Anatomical Region Laterality Modality Head Magnetic Resonan ce Impressions 04/03/2022 5:12 PM EDT Postoperative changes associated with partial resection of pituitary tumor with skull base invasion by a transsphenoidal approach. Thank you for letting us participate in the care of this patient. ??If you are a health care provider and have any questions regarding this report, please contact the number below. ??For patients who have questions please contact the health family day care provider that requested your imaging first. ? 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 Post TSS. TECHNIQUE: MRI of the pituitary with and without contrast. 17 cc Dotarem administered intravenously. COMPARISON: MRI brain March 13, 2022. FINDINGS: Interval resection of sellar/pituitary tumor protruding [...] sella suspicious for tumor invasion remains stable. Optic chiasm and prechiasmatic optic nerves show normal signal and no abnormal enhancement. 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 PostTSS. TECHNIQUE: MRI of the pituitary with and without contrast. 17 cc Dotaremadministered intravenously. COMPARISON: MRI brain March 13, 2022. FINDINGS: Interval resection of sellar/pituitary tumor protruding into theposterior sphenoid sinus via a transsphenoidal approach, fat packing material inthe anterior sphenoid body defect. There is residual enhancing tumor alongthe planum sphenoid alley measuring 1.3 cm AP by 1 cm craniocaudad by 1.8 cm transverse. Contiguous enhancing tumor within the sella. 1.8 cm AP by 1.2cm craniocaudad and 1.8 cm transverse. Abnormal enhancement of the sphenoid subjacent to the sella suspicious for tumor invasion remains stable. Optic chiasm and prechiasmatic optic nerves show normal signal and noabnormal enhancement. IMPRESSION Postoperative changes associated with partial resection of pituitary tumorwith skull base invasion by a transsphenoidal approach. Thank you for letting us participate in the care of this patient. If youare a health care provider and have any questions regarding this report,please contact the number below. For patients who have questions please contactthe health family day care provider that requested your imaging first. Electronically signed by: Hannah Mckeon MD, [facility]([phone]), at 04/03/2022 5:12 PM Thania England MD [facility] MRI ORDERABLES * Specific [place], Urine (04/03/2022 1:08 PM EDT) [facility] Specific [place] Urine Automated 1.010 1.005 - 1.030 [facility] Urine 04/03/2022 1:08 PM EDT 04/03/2022 1:33 PM EDT Narrative Resulting Agency Comment Spec In Lab Thania England MD URINE ORDERABLES [facility] [place] [address] * Cortisol (04/03/2022 11:54 AM EDT) Cortisol 28.9 mcg/dL [facility] Comment: Reference ranges: ??AM (6-10am): ??4.8-19.5 mcg/dL ??PM (4-8pm) : ??2.5-11.9 mcg/dL Blood 04/03/2022 11:5 4 AM EDT 04/03/2022 12:14 PM EDT Narrative Resulting Agency Comment Spec In Lab Thania England MD CHEMISTRY ORDERABLES Performing Organization Address [facility] Co de Phone Number [facility] [place] [address] * Osmolality (04/03/2022 11:54 AM EDT) Osmolality 286 275 - 295 mOsm/kg [facility] Blood 04/03/2022 11:5 4 AM EDT 04/03/2022 12:14 PM EDT Narrative Resulting Agency Comment Spec In Lab Thania England MD CHEMISTRY ORDERABLES Performing Organization Address [facility] Phone Number [facility] [place] [address] * Electrolytes panel (04/03/2022 11:54 AM EDT) Sodium 139 135 - 145 mmol/L [facility] Potassium 4.4 3.5 - 5.0 mmol/L [facility] Comment: Please note: ??Patients with WBC >100,000 may have falsely elevated Potassium levels. ??For accurate Potassium quantification in these patients send serum separator tube (gold top) for subsequent determinations. ??Contact the Clinical Chemistry Laboratory if there are any questions. Chloride 105 98 - 107 mmol/L [facility] Carbon Dioxide 25 22 - 31 mmol/L [facility] Anion Gap 9 5 - 15 mmol/L [facility] Blood 04/03/2022 11:5 4 AM EDT 04/03/2022 12:14 PM EDT Narrative Resulting Agency Comment Spec In Lab Thania England MD CHEMISTRY ORDERABLES Performing Organization Address [facility] Co de Phone Number [facility] [place] [address] * Creatinine (04/03/2022 11:54 AM EDT) Creatinine 0.88 0.70 - 1.20 mg/dL [facility] Est Glomerular Filtration Rate 88 >=60 mL/min/1. 73 m?? [facility] Comment: This patient's estimated GFR was calculated using the 2020 CKD-EPI equation. The estimated GFR can vary from the measured GFR by up to 30% in the absence of rapidly changing kidney function. Assessment of the estimated GFR is not appropriate when creatinine concentrations are rapidly changing. For clinical situations in which a more precise estimate of GFR is necessary, consider alternative methods of GFR estimation such as a 24-hour urine creatinine clearance. Assignment of CKD stage 1-5 for patients with an eGFR near the transition point between stages may be based on clinical assessment of muscle mass and symptoms in addition to eGFR. Blood 04/03/2022 11:5 4 AM EDT 04/03/2022 12:14 PM EDT Narrative Resulting Agency Comment Spec In Lab Thania England MD CHEMISTRY ORDERABLES [facility] [place] [address] * (ABNORMAL) BUN (04/03/2022 11:54 AM EDT) Blood Urea Nitrogen 7(L) 8 - 18 mg/dL [facility] Blood 04/03/2022 11:5 4 AM EDT 04/03/2022 12:14 PM EDT Narrative Resulting Agency Comment Spec In Lab Thania England MD CHEMISTRY ORDERABLES [facility] [place] [address] * Specimen to Pathology (04/03/2022 9:44 AM EDT) AP Specimen 04/03/2022 9:44 AM EDT 04/03/2022 9:44 AM EDT Narrative [facility] - 04/03/2022 9:44 AM EDT Specimen requisition ordered. ??Separate Pathology report to follow Thania England MD PATHOLOGY/CYTOLOGY O LORENZO Performing Organization Address [facility] [place] [address] * Specimen to Pathology (04/03/2022 9:32 AM EDT) AP Specimen 04/03/2022 9:32 AM EDT 04/03/2022 9:32 AM EDT Narrative [facility] - 04/03/2022 9:32 AM EDT Specimen requisition ordered. ??Separate Pathology report to follow Thania England MD PATHOLOGY/CYTOLOGY O LORENZO Performing Organization Address [facility] Co de Phone Number [facility] [place] [address] * Surgical Pathology Report (04/03/2022 8:43 AM EDT) Final Diagnosis [id number] ? Location: [address] The signing pathologist has (i) examined the relevant preparation(s) for the specimen(s) and (ii) rendered or confirmed the diagnosis(es). . ?Surgical Pathology DIAGNOSIS A - Sphenoid Sinus Tissue, excision (Multiple) Pituitary adenoma, corticotroph subtype. B - Intradural, excision: Pituitary adenoma, corticotroph subtype. C - Recurrent Pituitary Tumor, excision: Pituitary adenoma, corticotroph subtype. Electronically signed by: ?Virginia MILLER, PhD, [place] Verified: ??04/07/2022 15:40 ??Pathologist Performed at: ??-[facility] [place], [place], [place] SYNOPTIC none DISCUSSION Hematoxylin and eosin staining of the specimen shows a neoplasm composed of monomorphic cells forming sheet-like architecture. The cells have pale staining cytoplasm and round to oval nuclei with stippled nucleoli. Occasional prominent nucleoli are noted. No mitotic figure is seen. Fragments of dense fibroconnective tissue with hemosiderin deposition and respiratory epithelium is noted in A1. ADDITIONAL STUDIES Immunohistochemistry Studies: Formalin-fixed, paraffin-embedded tissue sections are studied using the polymer technique with appropriate positive and negative controls. ?These IHC studies provide the pathologist with adjunctive diagnostic information. Antibody specificity has been verified by testing antibodies on a series of in-house tissues with known immunohistochemical performance characteristics. The clinical interpretation of any antibody positive staining or its absence is evaluated within the context of clinical presentation, morphology, histopathological criteria and other diagnostic tests. Block ??Antibody Result A1 ?LH ?Negative in tumor cells A1 ?FSH ? Negative in tumor cells A1 ?GH ?Negative in tumor cells A1 ?prolactin ? Negative in tumor cells A1 ?ACTH ?Positive in tumor cells A1 ?TSH ? Negative in tumor cells A1 ?Ki67 ?1-2% A1 ?p53 ? <1% SPECIMEN(S) SUBMITTED A - Sphenoid Sinus Tissue, excision (Multiple) B - Intradural, excision (1) C - Recurrent Pituitary Tumor, excision (1) . CLINICAL INFORMATION Recurrent Phoenix's macroadenoma SPECIMEN PROCESSING A - Labeled/Fixative: Sphenoid sinus tissue, fresh. Quantity/Size: Fragments, 1.0 x 1.0 x 0.1 cm. Tissue Description: Multiple small fragments of soft neri-brown tissue. Sections/Processing: Entirely submitted in 1 cassette labeled A1. B - Labeled/Fixative: Intradural, fresh. Quantity/Size: Single, 0.5 x 0.3 x 0.1 cm. Tissue Description: Fragment of soft neri-brown tissue. Sections/Processing: Entirely submitted in 1 cassette labeled B1. C - Labeled/Fixative: Recurrent pituitary tumor, fresh. Quantity/Size: Fragments, 1.0 x 0.5 x 0.1 cm. Tissue Description: Multiple fragments of soft neri-brown tissue. Sections/Processing: Entirely submitted in 1 cassette labeled C1. ??jnk 04/07/2022 3:40 PM EDT [facility] STRUCTURE OF PARS INTERMEDIA OF PITUITARY GLAND / Unknown 04/03/2022 8:43 AM EDT 04/03/2022 8:43 AM EDT BIOPSY SPECIMEN / Unknown 04/03/2022 8:43 AM EDT 04/03/2022 8:43 AM EDT STRUCTURE OF PARS INTERMEDIA OF PITUITARY GLAND / Unknown 04/03/2022 8:43 AM EDT 04/03/2022 8:43 AM EDT Thania England MD PATHOLOGY/CYTOLOGY O LORENZO Performing Organization Address City/[facility] Co de Phone Number [facility] [place] [address] * Specimen to Pathology (04/03/2022 8:43 AM EDT) AP Specimen 04/03/2022 8:43 AM EDT 04/03/2022 8:43 AM EDT Narrative [facility] - 04/03/2022 8:43 AM EDT Specimen requisition ordered. ??Separate Pathology report to follow Thania England MD PATHOLOGY/CYTOLOGY O RDERAEMILY Performing Organization Address [facility] Co de Phone Number [facility] [place] [address] * (ABNORMAL) ACTH (04/03/2022 8:10 AM EDT) ACTH (JANUARY) 77(H) pg/mL [facility] Comment: REFERENCE VALUE 7.2-63 (a.m. collection) Test Performed by: [facility] [address] [place] [address] Pumper Gauger Apprentice: Damian Gates M.D. Ph.D.; CLIA# [id number] Blood 04/03/2022 8:10 AM EDT 04/03/2022 10:10 AM EDT Narrative Resulting Agency Comment Spec In Lab Thania England MD LAB SEND OUT ORDERAB LES [facility] [place] [address] * Lavender Tube HOLD (04/03/2022 7:15 AM EDT) Lavender Hold Sample in lab. [facility] Blood No Charge / Unknown 04/03/2022 7:15 AM EDT 04/03/2022 7:52 AM EDT Nnamdi Cifuentes MD HEMATOLOGY ORDERABLE S Performing Organization Address City/[facility]/ZIP Co de Phone Number [facility] [place] [address] * Prolactin (04/03/2022 7:15 AM EDT) Prolactin 5.8 4.8 - 23.3 ng/mL [facility] Blood 04/03/2022 7:15 AM EDT 04/03/2022 7:29 AM EDT Narrative Resulting Agency Comment Spec In Lab Thania England MD CHEMISTRY ORDERABLES [facility] [place] [address] * TSH (04/03/2022 7:15 AM EDT) Thyroid Stimulating Hormone 2.95 0.27 - 4.20 mcIU/mL [facility] Comment: Reference Interval (mcIU/mL): Females: ??First Trimester: 0.23-3.88 ??Second Trimester: 0.22-3.90 ??Third Trimester: 0.44-4.66 Blood 04/03/2022 7:15 AM EDT 04/03/2022 7:30 AM EDT Narrative Resulting Agency Comment Spec In Lab Thania England MD CHEMISTRY ORDERABLES Performing Organization Address [facility] Co de Phone Number [facility] [place] [address] * Luteinizing Hormone (04/03/2022 7:15 AM EDT) Luteinizing Hormone 4.3 mlU/ML [facility] Comment: Reference Ranges Male: ? 1.7-8.6 mIU/mL Female ?? Follicular: ?2.4-12.6 mIU/mL ?? Ovulation: ? 14.0-95.6 mIU/mL ?? Luteal: ?1.0-11.4 mIU/mL ?? Postmenopausal: ?7.7-58.5 mIU/mL Blood 04/03/2022 7:15 AM EDT 04/03/2022 7:29 AM EDT Narrative Resulting Agency Comment Spec In Lab Thania England MD CHEMISTRY ORDERABLES Performing Organization Address [facility] Co de Phone Number [facility] [place] [address] * Follicle Stimulating Hormone (04/03/2022 7:15 AM EDT) Follicle Stimulating Hormone 2.4 mlU/ML [facility] Comment: Reference Ranges Male: ? 1.5-12.4 mIU/mL Female ?? Follicular: ?3.5-12.5 mIU/mL ?? Ovulation: ? 4.7-21.5 mIU/mL ?? Luteal: ?1.7-7.7 mIU/mL ?? Postmenopausal: ?25.8-134.8 mIU/mL Blood 04/03/2022 7:15 AM EDT 04/03/2022 7:29 AM EDT Narrative Resulting Agency Comment Spec In Lab Thania England MD CHEMISTRY ORDERABLES Performing Organization Address [facility] Co de Phone Number [facility] [place] [address] * Cortisol (04/03/2022 7:15 AM EDT) Cortisol 10.8 mcg/dL [facility] Comment: Reference ranges: ??AM (6-10am): ??4.8-19.5 mcg/dL ??PM (4-8pm) : ??2.5-11.9 mcg/dL Blood 04/03/2022 7:15 AM EDT 04/03/2022 7:30 AM EDT Narrative Resulting Agency Comment Spec In Lab Thania England MD CHEMISTRY ORDERABLES Performing Organization Address [facility] Co de Phone Number [facility] [place] [address] documented in this encounter Visit Diagnoses Diagnosis Pituitary adenoma Benign neoplasm of pituitary gland and craniopharyngeal duct (pouch) Pituitary adenoma Benign neoplasm of pituitary gland and craniopharyngeal duct (pouch) documented in this encounter Admitting Diagnoses Diagnosis Pituitary adenoma Benign neoplasm of pituitary gland and craniopharyngeal duct (pouch) documented in this encounter Administered Medications Inactive Administered Medications - up to 3 most recent administrations Medication Order MAR Action Action Date Dose Rate Site acetaminophen (Tylenol) (32.02 mg/mL) oral liquid 1,000 mg 1,000 mg, Oral, EVERY 6 HOURS PRN, Starting on Sun04/03/22 at 1135, Until Court 04/06/22 at 1519, Pain, mild pain (1-3), Maximum dose of acetaminophen is 4000 mg from all sources in 24 hours. When ordered for pain, acetaminophen should be given even when other ordered pain medications are indicated. , Routine acetaminophen (Tylenol) suppository 975 mg 975 mg, Rectal, EVERY 6 HOURS PRN, Starting on Sun04/03/22 at 1135, Until Court 04/06/22 at 1519, Pain, mild pain (1-3), Maximum dose of acetaminophen is 4000 mg from all sources in 24 hours. When ordered for pain, acetaminophen should be given even when other ordered pain medications are indicated. , Routine acetaminophen (Tylenol) tablet 1,000 mg 1,000 mg, Oral, ONCE, 1 dose, On Sun04/03/22 at 0700, Administer with SIP of H2O only. Maximum dose of acetaminophen is 4,000 mg from all sources in 24 hours., Day of Surgery (Day of Procedure), Routine Given 04/03/2022 6:53 AM EDT 1,000 mg acetaminophen (Tylenol) tablet 1,000 mg 1,000 mg, Oral, EVERY 6 HOURS PRN, Starting on Sun04/03/22 at 1135, Until Court 04/06/22 at 1519, Pain, mild pain (1-3), Maximum dose of acetaminophen is 4000 mg from all sources in 24 hours. When ordered for pain, acetaminophen should be given even when other ordered pain medications are indicated. , Routine Given 04/03/2022 7:53 PM EDT 1,000 mg Given 04/03/2022 11:49 AM EDT 1,000 mg docusate sodium (Colace) capsule 100 mg 100 mg, Oral, 2 TIMES DAILY, First dose on Sun04/03/22 at 1230, Until Discontinued, Routine Given 04/06/2022 9:14 AM EDT 100 mg Given 04/05/2022 8:37 PM EDT 100 mg Given 04/05/2022 8:23 AM EDT 100 mg gadoterate meglumine (Dotarem) (0.5 mMol/mL) injection solution 0-100 mL 0-100 mL, Intravenous, ONCE PRN, 1 dose, Starting on Sun04/03/22 at 1604, Until Sun04/03/22 at 1615, Per Protocol, Radiology Contrast, Routine Given 04/03/2022 4:15 PM EDT 17 mLs pantoprazole (Protonix) injection 40 mg 40 mg, Intravenous, DAILY, First dose on Sun04/03/22 at 1230, Until Discontinued, Reconstitute with 10 mL of normal saline to a concentration of 4 mg/mL and infuse slowly over 2 minutes. , Routine pantoprazole EC (Protonix) tablet 40 mg 40 mg, Oral, DAILY, First dose on Sun04/03/22 at 1230, Until Discontinued, DO NOT CRUSH OR OPEN If unable to take PO, may give IV Given 04/06/2022 9:14 AM EDT 40 mg Given 04/05/2022 8:23 AM EDT 40 mg Given 04/04/2022 9:02 AM EDT 40 mg potassium chloride ER (K-Dur/Klor-Con) tablet 60 mEq 60 mEq, Oral, ONCE, 1 dose, On Court 04/06/22 at 0630, Potassium chloride ER tablet preferred; may give liquid if unable to swallow ER tablet. Serum potassium levels should be re-checked 4 hours after completion of last dose & prior to administration of any additional doses., Routine Given 04/06/2022 5:51 AM EDT 60 mEq documented in this encounter Active and Recently Administered Medications Times are shown in EDT. Scheduled Medication Order 04/04/2022 04/05/2022 04/06/2022 docusate sodium (Colace) capsule 100 mg 100 mg, Oral, 2 TIMES DAILY, First dose on Sun04/03/22 at 1230, Until Discontinued, Routine 901 (Given - Provider: Naomy Mccauley RN)2050 (Given - Provider: Pablo Browne Jr., RN) 822 (Given - Provider: Naomy Mccauley RN)2036 (Given - Provider: Feli Liu RN) 913 (Given - Provider: Preethi Ariza RN) pantoprazole (Protonix) injection 40 mg(Linked Group 1) 40 mg, Intravenous, DAILY, First dose on Sun04/03/22 at 1230, Until Discontinued, Reconstitute with 10 mL of normal saline to a concentration of 4 mg/mL and infuse slowly over 2 minutes. , Routine 0902 (See Alternative - Provider: Naomy Mccauley RN) 0823 (See Alternative - Provider: Naomy Mccauley RN) 0914 (See Alternative - Provider: Preethi Ariza RN) pantoprazole EC (Protonix) tablet 40 mg(Linked Group 1) 40 mg, Oral, DAILY, First dose on Sun04/03/22 at 1230, Until Discontinued, DO NOT CRUSH OR OPEN If unable to take PO, may give IV 0902 (Given - Provider: Naomy Mccauley RN) 0823 (Given - Provider: Naomy Mccauley RN) 0914 (Given - Provider: Preethi Ariza RN) potassium chloride ER (K-Dur/Klor-Con) tablet 60 mEq (COMPLETED)(Linked Group 2) 60 mEq, Oral, ONCE, 1 dose, On Court 04/06/22 at 0630, Potassium chloride ER tablet preferred; may give liquid if unable to swallow ER tablet. Serum potassium levels should be re-checked 4 hours after completion of last dose & prior to administration of any additional doses., Routine 0551 (Given - Provider: Feli Liu RN) PRN Medication Order 04/04/2022 04/05/2022 04/06/2022 acetaminophen (Tylenol) (32.02 mg/mL) oral liquid 1,000 mg(Linked Group 3) 1,000 mg, Oral, EVERY 6 HOURS PRN, Starting on Sun04/03/22 at 1135, Until Court 04/06/22 at 1519, Pain, mild pain (1-3), Maximum dose of acetaminophen is 4000 mg from all sources in 24 hours. When ordered for pain, acetaminophen should be given even when other ordered pain medications are indicated. , Routine acetaminophen (Tylenol) suppository 975 mg(Linked Group 3) 975 mg, Rectal, EVERY 6 HOURS PRN, Starting on Sun04/03/22 at 1135, Until Court 04/06/22 at 1519, Pain, mild pain (1-3), Maximum dose of acetaminophen is 4000 mg from all sources in 24 hours. When ordered for pain, acetaminophen should be given even when other ordered pain medications are indicated. , Routine acetaminophen (Tylenol) tablet 1,000 mg(Linked Group 3) 1,000 mg, Oral, EVERY 6 HOURS PRN, Starting on Sun04/03/22 at 1135, Until Court 04/06/22 at 1519, Pain, mild pain (1-3), Maximum dose of acetaminophen is 4000 mg from all sources in 24 hours. When ordered for pain, acetaminophen should be given even when other ordered pain medications are indicated. , Routine hydrALAZINE (Apresoline) (20 mg/mL) injection 10 mg 10 mg, Intravenous, EVERY 1 HOUR PRN, Starting on Sun04/03/22 at 1135, Until Court 04/06/22 at 1519, High Blood Pressure, Target SBP less than 160 mmHg. May repeat once in 15 minutes if SBP remains greater than target. Use if labetolol ineffective after 2 doses., Routine labetaloL (Normodyne) (5 mg/mL) injection solution 10 mg 10 mg, Intravenous, EVERY 1 HOUR PRN, Starting on Sun04/03/22 at 1135, Until Court 04/06/22 at 1519, High Blood Pressure, Target SBP less than 160 mmHg. May repeat once in 15 minutes if SBP remains greater than target., Routine polyethylene glycoL (Miralax) packet 17 g 17 g, Oral, DAILY PRN, Starting on Sun04/03/22 at 1135, Until Court 04/06/22 at 1519, Constipation, Administer if no bowel movement within 48 hours to achieve: (1) One bowel movement at least every 48 hours, AND (2) without straining. If multiple PRN bowel medications ordered, start with polyethylene glycol, then lactulose, then oral bisacodyl, then bisacodyl suppository, then magnesium citrate, then tap water enema. Multiple medications may be given concomitantly for constipation., Routine Linked Groups Order Group 1: pantoprazole EC (Protonix) tablet 40 mgJump to med 40 mg, Oral, DAILY, First dose on Sun04/03/22 at 1230, Until Discontinued, DO NOT CRUSH OR OPEN If unable to take PO, may give IV Or pantoprazole (Protonix) injection 40 mgJump to med 40 mg, Intravenous, DAILY, First dose on Sun04/03/22 at 1230, Until Discontinued, Reconstitute with 10 mL of normal saline to a concentration of 4 mg/mL and infuse slowly over 2 minutes. , Routine Group 2: potassium chloride ER (K-Dur/Klor-Con) tablet 60 mEq (COMPLETED)Jump to med 60 mEq, Oral, ONCE, 1 dose, On Court 04/06/22 at 0630, Potassium chloride ER tablet preferred; may give liquid if unable to swallow ER tablet. Serum potassium levels should be re-checked 4 hours after completion of last dose & prior to administration of any additional doses., Routine Or potassium bicarbonate (Effer-K) effervescent tablet 60 mEq (COMPLETED) 60 mEq, Oral, ONCE, 1 dose, On Court 04/06/22 at 0630, Potassium chloride ER tablet preferred; may give liquid if unable to swallow ER tablet. Serum potassium levels should be re-checked 4 hours after completion of last dose & prior to administration of any additional doses. DO NOT GIVE UNDILUTED MEDICATION TO PATIENT. Dissolve tablet completely in 3-4 ounces of cold water or juice. May further dilute if adverse GI effects occur., Routine Group 3: acetaminophen (Tylenol) (32.02 mg/mL) oral liquid 1,000 mgJump to med 1,000 mg, Oral, EVERY 6 HOURS PRN, Starting on Sun04/03/22 at 1135, Until Court 04/06/22 at 1519, Pain, mild pain (1-3), Maximum dose of acetaminophen is 4000 mg from all sources in 24 hours. When ordered for pain, acetaminophen should be given even when other ordered pain medications are indicated. , Routine Or acetaminophen (Tylenol) tablet 1,000 mgJump to med 1,000 mg, Oral, EVERY 6 HOURS PRN, Starting on Sun04/03/22 at 1135, Until Court 04/06/22 at 1519, Pain, mild pain (1-3), Maximum dose of acetaminophen is 4000 mg from all sources in 24 hours. When ordered for pain, acetaminophen should be given even when other ordered pain medications are indicated. , Routine Or acetaminophen (Tylenol) suppository 975 mgJump to med 975 mg, Rectal, EVERY 6 HOURS PRN, Starting on 04/03/22 at 1135, Until Court 04/06/22 at 1519, Pain, mild pain (1-3), Maximum dose of acetaminophen is 4000 mg from all sources in 24 hours. When ordered for pain, acetaminophen should be given even when other ordered pain medications are indicated. , Routine documented in this encounter Care Teams Sand System Operator Relationship Specialty Start Date End Date Nate Tariq MD [address] [place] [address] PCP - General Family Medicine 04/03/22 documented as of this encounter
--- OUTSIDE RECORDS SUMMARY | 2024-09-16 17:45 | XMS_ITS | Encounter Summary ---
Author Organization [facility] Address [facility] [place] [address] Care Team Providers Care Staffing Manager Name Role Phone Nate Tariq MD Primary Care Provider [phone] Reason for Visit * Reason Onset Date Comments Post Hospital Discharge 04/10/2022 Encounter Details Date Type Department Care Team (Late st Contact Info) Description 04/10/2022 Telephone Neurosurgery at [facility] [place] [phone] Joy Saab RN Post Hospital Discharge Social History Tobacco Use Types Packs/Day Years Used Date Smoking Tobacco: Never Smokeless Tobacco: Never Alcohol Use Standard Drinks/Week Comments Not Currently 0 (1 standard drink = 0.6 oz pur e alcohol) Sex and Gender Information Value Date Recorded Sex Assigned at Not on file Gender Identity Not on file Sexual Orientation Not on file documented as of this encounter Miscellaneous Notes * Telephone Encounter - Joy Saab RN - 04/10/2022 1:49 PM EDT Amy Mccall 1985 36 y.o. [id number] F/U call s/p TRANSSPHENOIDAL HYPOPHYSECTOMY on 04/03/22 Date of discharge: 04/06/22 Date of call: 04/10/22 Neuro: alert and oriented: yes Dizzy or lightheaded: denies Numbness/tingling/weakness: denies Ambulation: steady Vision: clear Speech: clear Hearing: good Incision: has had a little drainage like in the hospital, denies clear drainage dripping from nose Pain: denies, had a little headache the first day home PO: eating and drinking well B&B: working well Sleep: good Other: documented in this encounter Plan of Treatment Not on file documented as of this encounter Visit Diagnoses Not on filedocumented in this encounter Care Teams Staffing Manager Relationship Specialty Start Date End Date Nate Tariq MD [address] [place] [address] PCP - General Family Medicine 04/03/22 documented as of this encounter
--- OUTSIDE RECORDS SUMMARY | 2024-09-16 17:45 | XMS_ITS | Clinical Summary ---
Author Organization [facility] Address [address] [place] [address] Care Team Providers Care Tempering Oven Operator Name Role Phone Unavailable Primary Care Provider Unavailabl e Social History Tobacco Use Types Packs/Day Years Used Date Smoking Tobacco: Never Assessed Comments Unknown Sex and Gender Information Value Date Recorded Sex Assigned at Not on file Legal Sex Female 15:59 EDT Gender Identity Not on file Sexual Orientation Not on file Plan of Treatment Health Maintenance Due Date Last Done Comments Hepatitis C Screen 1985 Hepatitis B Vaccine (1 of 3 - 19+ 3-dose series) 08/13 COVID-19 Vaccine (2023- season) 2024
--- OUTSIDE RECORDS SUMMARY | 2024-09-16 17:45 | XMS_ITS | Referral Summary ---
Author Organization [facility] Address [address] [place] [address] Care Team Providers Care Calibration Checker Name Role Phone Unavailable Primary Care Provider Unavailabl e Social History Tobacco Use Types Packs/Day Years Used Date Smoking Tobacco: Never Assessed Comments Unknown Sex and Gender Information Value Date Recorded Sex Assigned at Not on file Legal Sex Female 15:59 EDT Gender Identity Not on file Sexual Orientation Not on file Plan of Treatment Not on file
--- OUTSIDE RECORDS SUMMARY | 2024-09-16 17:45 | XMS_ITS | Encounter Summary ---
Author Organization [facility] Address [facility] [place] [address] Care Team Providers Care Fisheries Management Biologist Name Role Phone Nate Tariq MD Primary Care Provider [phone] Reason for Visit * Reason Onset Date Comments Appointment 04/06/2022 Encounter Details Date Type Department Care Team (Late st Contact Info) Description 04/06/2022 Telephone Endocrinology at [facility] [place] [phone] Alexandrea Davila I Appointment Social History Tobacco Use Types Packs/Day Years [...] encounter Miscellaneous Notes * Telephone Encounter - Alexandrea Manuel I - 04/06/2022 11:58 AM EDT Called to schedule a FUV with Dr. Fletcher for May 11 at 1pm or 2pm. Letter sent documented in this encounter Plan of Treatment Not on file documented as of this encounter Visit Diagnoses Not on filedocumented in this encounter Care Teams Fisheries Management Biologist Relationship Specialty Start Date End Date Nate Tariq MD [address] [place] [address] PCP - General Family Medicine 04/03/22 documented as of this encounter
--- OUTSIDE RECORDS SUMMARY | 2024-09-16 17:45 | XMS_ITS | Clinical Summary ---
Author Organization [facility] Address [facility] [place] [address] Care Team Providers Care Financial Director Name Role Phone Nate Tariq MD Primary Care Provider [phone] Allergies No known active allergies Medications Medication Sig Dispensed Refills Start Date End Date Status acetaminophen (Tylenol) 500 mg Tablet Take 2 tablets by mouth every 6 hours as needed for Pain. 30 tablet 1 04/06/2022 Active polyethylene glycoL (Miralax) 17 gram Powder in Packet Take 17 g by mouth daily as needed. 14 each 04/06/2022 Active hydrocortisone (CORTEF) 10 mg Tablet Take 20mg (2 tablets) at 8 am and take 10 mg (1 tablet) at 3pm 90 tablet 3 04/06/2022 Active Active Problems Problem Noted Date Diagnosed Date Pituitary adenoma 04/03/2022 Social History Tobacco Use Types Packs/Day Years Used Date Smoking Tobacco: Never Smokeless Tobacco: Never Alcohol Use Standard Drinks/Week Comments Not Currently 0 (1 standard drink = 0.6 oz pur e alcohol) Sex and Gender Information Value Date Recorded Sex Assigned at Not on file Gender Identity Not on file Sexual Orientation Not on file Last Filed Vital Signs Vital Sign Reading Time Taken Comments Blood Pressure 124/89 05/11/2022 12:30 PM EDT Pulse 88 05/11/2022 12:30 PM EDT Temperature 35.8 ??C (96.4 ??F) 05/11/2022 12:30 PM E DT Respiratory Rate 16 04/06/2022 11:50 AM EDT Oxygen Saturation 99% 05/11/2022 12:30 PM EDT Inhaled Oxygen Concentration - - Weight 77.6 kg (171 lb) 05/11/2022 12:30 PM EDT Height 167.6 cm (5' 6) 05/11/2022 12:30 PM EDT Body Mass Index 27.6 05/11/2022 12:30 PM EDT Plan of Treatment Health Maintenance Due Date Last Done Comments HIV screen 2004 Hepatitis C Screening 2004 Hepatitis B vaccine (0-59 yrs) (1) 2005 Tetanus/Diphtheria/Pertussis Vaccines (1 - Tdap) 08/13 HPV test 2016 PAP Smear 2016 Covid-19 Vaccine (1 - season) 2024 Influenza (Flu) vaccine (1 o f 1 - Influenza standard series) 05/04/2024 Medical Devices Implanted Type Area Qa Developer Device Identifier Shelf Expiration Date Model / Serial / Lot Applicator Tissue Closure 5ml Syringe Fibrin Duraseal ([id number]) - [id number] Implanted:Qty: 1 on 04/03/2022 by Gurdeep England MD at [facility] IMPLANTS N/A: Brain INTEGRA - [id number] 10/03/2022-2049 / / [id number] Advance Directives * Attempt Cardiopulmonary Resuscitation - Inpatient (Latest Code Status on File) Date Activated Date Inactivated Comments 04/03/2022 7:08 AM 04/06/2022 3:19 PM Question Answer Comments Code Status decision made by: Patient * Attempt Cardiopulmonary Resuscitation - Inpatient Date Activated Date Inactivated Comments 04/03/2022 7:03 AM 04/03/2022 7:08 AM Question Answer Comments Code Status decision made by: Patient Care Teams Financial Director Relationship Specialty Start Date End Date Nate Tariq MD [address] [place] [address] PCP - General Family Medicine 04/03/22
--- OUTSIDE RECORDS SUMMARY | 2024-09-16 17:45 | XMS_ITS | Encounter Summary ---
Author Organization [facility] Address [address] [place] [address] Care Team Providers Care Buoy Tender Name Role Phone Unavailable Primary Care Provider Unavailabl e Encounter Details Date Type Department Care Team (Late st Contact Info) Description 03/13/2022 Lab Requisition [facility] Pathology & Laboratory Medicine - [facility] [address] [place] [address] Outr Resulting Lab, Provider Social History Tobacco [...] Procedure Name Priority Date/Time Associated Diagnosis Comments LYME AB Routine 03/13/2022 12:07 EDT documented in this encounter Results * LYME AB (03/13/2022 12:07 EDT) Lyme Ab Negative Negative 03/14/2022 11:01 EDT [facility] Blood VENOUS BLOOD / Unknown 03/13/2022 12:07 EDT 03/13/2022 21:36 EDT us Provider Outr Resulting Lab IMMUNOLOGY AND SEROL OGY ORDERABLES Final Result [facility] [address] [place] [address] documented in this encounter Visit Diagnoses Not on filedocumented in this encounter
--- OUTSIDE RECORDS SUMMARY | 2024-09-16 17:46 | XMS_ITS | Encounter Summary ---
Author Organization [facility] Address [facility] [place] [address] Care Team Providers Care Manager Data Warehousing Name Role Phone Unavailable Primary Care Provider Unavailabl e Encounter Details Date Type Department Care Team (Late st Contact Info) Description 04/16/2017 Ancillary Procedure Radiology Library at [facility] [place] [phone] Gurdeep England MD [facility] [place] [address] Social History Tobacco Use Types Packs/Day Years Used Date Smoking Tobacco: Never Assessed Sex and Gender Information Value Date Recorded Sex Assigned at Not on file Gender Identity Not on file Sexual Orientation Not on file documented as of this encounter Plan of Treatment Not on file documented as of this encounter Procedures Procedure Name Priority Date/Time Associated Diagnosis Comments FILM LIBRARY STORAGE ONLY MR HEAD Routine 04/16/2017 12:00 AM EDT documented in this encounter Results * Film Library- Storage Only MR Head (04/16/2017 12:00 AM EDT) Narrative [facility] - 03/24/2022 12:24 PM EDT This exam is auto-finalizing. It's purpose is for storage only. Gurdeep England MD IMG FILM LIBRARY ORD ERABLES [place] [place] documented in this encounter Visit Diagnoses Not on filedocumented in this encounter
--- OUTSIDE RECORDS SUMMARY | 2024-09-16 17:46 | XMS_ITS | Encounter Summary ---
Author Organization [facility] Address [facility] [place] [address] Care Team Providers Care Director Of User Experience Name Role Phone Unavailable Primary Care Provider Unavailabl e Encounter Details Date Type Department Care Team (Late st Contact Info) Description 11/03/2016 Ancillary Procedure Radiology Library at [facility] [place] [phone] Gurdeep England MD [facility] [place] [address] Social History Tobacco Use Types Packs/Day Years [...] FILM LIBRARY STORAGE ONLY MR HEAD Routine 11/03/2016 12:00 AM EST documented in this encounter Results * Film Library- Storage Only MR Head (11/03/2016 12:00 AM EST) Narrative [facility] - 03/24/2022 12:28 PM EDT This exam is auto-finalizing. It's purpose is for storage only. Gurdeep England MD IMG FILM LIBRARY ORD ERABLES [facility] [place] documented in this encounter Visit Diagnoses Not on filedocumented in this encounter
--- OUTSIDE RECORDS SUMMARY | 2024-09-16 17:46 | XMS_ITS | Encounter Summary ---
Author Organization [facility] Address [facility] [place] [address] Care Team Providers Care Industrial Recruiter Name Role Phone Unavailable Primary Care Provider Unavailabl e Encounter Details Date Type Department Care Team (Late st Contact Info) Description 03/13/2022 6:50 PM EDT Ancillary Procedure Radiology Library at [facility] [place] [phone] Jaqueline Bradford MD [facility] [place] [address] Social History Tobacco Use Types Packs/Day Years [...] FILM LIBRARY STORAGE ONLY MR HEAD Routine 03/13/2022 6:46 PM EDT documented in this encounter Results * Film Library- Storage Only MR Head (03/13/2022 6:46 PM EDT) Narrative [facility] - 03/13/2022 6:46 PM EDT This exam is auto-finalizing. It's purpose is for storage only. Jaqueline Bradford MD G FILM LIBRARY ORD ERABLES [place], [place] documented in this encounter Visit Diagnoses Not on filedocumented in this encounter
--- OUTSIDE RECORDS SUMMARY | 2024-09-16 17:46 | XMS_ITS | Encounter Summary ---
Author Organization [facility] Address [facility] [place] [address] Care Team Providers Care Powder Worker Tnt Name Role Phone Unavailable Primary Care Provider Unavailabl e Reason for Visit * Consultation (Routine) - Closed Specialty Diagnoses / Procedures Referred By Gen portillo Referred To Contact Endocrinology Diagnoses Pituitary adenoma Gurdeep England MD [facility] [place] [address] [facility] [address] [place] [address] Referral ID Status Reason Start Date Expiration Date V isits Requested Visits Authorized [id number] Closed Consult, Test & Treat 03/14/2022 03/14/2023 1 1 Encounter Details Date Type Department Care Team (Late st Contact Info) Description 03/21/2022 1:00 PM EDT Office [place] [address] Facundo Fletcher, DO Pituitary macroadenoma Social History Tobacco Use Types Packs/Day Years Used Date Smoking Tobacco: Never Smokeless Tobacco: Never Sex and Gender Information Value Date Recorded Sex Assigned at Not on file Gender Identity Not on file Sexual Orientation Not on file documented as of this encounter Last Filed Vital Signs Vital Sign Reading Time Taken Comments Blood Pressure 121/92 03/21/2022 12:52 PM EDT Pulse 74 03/21/2022 12:52 PM EDT Temperature 37.1 ??C (98.7 ??F) 03/21/2022 12:52 PM E DT Respiratory Rate 20 03/21/2022 12:52 PM EDT Oxygen Saturation 98% 03/21/2022 12:52 PM EDT Inhaled Oxygen Concentration - - Weight 75.5 kg (166 lb 6.4 oz) 03/21/2022 12:52 PM EDT Height 167.6 cm (5' 6) 03/21/2022 12:52 PM EDT Body Mass Index 26.86 03/21/2022 12:52 PM EDT documented in this encounter Progress Notes * Facundo Fletcher, DO - 03/21/2022 1:00 PM EDT Images from the original note were not included. Ms. Amy Mccall is an 36 y.o. female who presents in consultation for chief complaint of pituitary macroadenoma Referred by: Gurdeep England MD HPI: 36-year-old female presents for evaluation of pituitary macroadenoma. 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 At that time she developed symptoms of swelling in her hands and feet. Initially she was told she had a thyroid problem however things progressed and she developed vision changes at which time she had imaging of her head done in ED there and the adenoma was found. 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 After the transsphenoidal resection of her tumor she did not need any steroids or other supplemental hormones. She has been doing well since then until recently when she again noted swelling in her hands and feet along with facial numbness, migraine headache, loss of taste. All of the symptoms were similar tolast time though this time she has not had any loss of her vision. She was recently evaluated in the ED and seen to have what appears to be a recurrence of the adenoma. She has 2 children and has had a tubal ligation. She generally has normal menstrual cycles though notes just recently at the onset of her symptoms she has had a cycle that is shorter than usual. She has noted increased urination though not necessarily increased thirst. She reports a long history of hypokalemia. Review of Systems Constitutional: Negative for appetite change, fatigue and unexpected weight change. Eyes: Negative for visual disturbance. Cardiovascular: Positive for palpitations. Gastrointestinal: Negative for constipation and diarrhea. Endocrine: Positive for polyuria. Negative for cold intolerance and heat intolerance. Genitourinary: Positive for menstrual problem. Neurological: Negative for tremors. Medical histrory: no other medical problems Surgical History: cholecystectomy Family History: no pituitary, calcium isuues, or adrenal problems, no pancreatic cancers Allergies: nkda Social History: no smoking Social History Socioeconomic History ??? Marital status: Spouse name: Not on file ??? Number of children: Not on file ??? Years of education: Not on file ??? Highest education level: Not on file Occupational History ??? Not on file Tobacco Use ??? Smoking status: Not on file ??? Smokeless tobacco: Not on file Substance and Sexual Activity ??? Alcohol use: [...] on file Housing Stability: Not on file Physical Exam: Patient Vitals for the past 24 hrs: Temp Pulse Resp BP SpO2 03/21/22 1252 37.1 ??C (98.7 ??F) 74 20 (!) 121/92 98 % General: no acute distress, pleasant, sitting comfortably Eyes: visual martin grossly intact Face: some flushing Respiratory: symmetrical chest expansion, breathing comfortably on room air without audible wheeze or stridor Musculoskeletal: moving all 4 extremities normally. normal female musculature Skin: Hyperpigmented Psychological: alert/oriented to person, place, time; normal affect; memory intact; normal judgement/insight Radiology Studies: Assessment / Plan: 36-year-old female presents for evaluation of pituitary macroadenoma. She first had a pituitary macroadenoma resected by 5 or 6 years ago. 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 After surgery she did not require any supplemental steroids or hormones. Recently she developed symptoms similar to her previous presentation including swelling in hands and feet, headache, facial numbness and she sought evaluation in ED where she was found to have what appears to be likely regrowth of thepituitary macroadenoma. She reports that during her first presentation she did have some visual disturbance though she has not had any with this one. Neurosurgery has reviewed her images and did not see any optic chiasm compression. She does appear hyperpigmented which could be a sign of ACTH excess. She also has a history of hypokalemia which could also be due to excess cortisol. -Will check anterior pituitary hormones as well as a BMP -Depending on the results of random ACTH and cortisol may need 1 mg DST as the next step -She will follow-up with neurosurgery A note will be sent to the referring provider Return to clinic in 3 months. Discussed with attending physician, Dr. Guerrero. It was a pleasure to be involved in the care of Amy Mccall. If you have any questions about themanagement and treatment plan as outlined above, or if I can be of further assistance, please do not hesitate to contact me. Sincerely, Facundo Fletcher DO Endocrinology Fellow * Segun Guerrero MD - 03/21/2022 1:00 PM EDT I saw this patient with Dr Fletcher . I reviewed the new portions of the history and physical exam, and reviewed pertinent lab data. I answered all patient questions. I was involved in all medical decision making and agree with this plan. documented in this encounter Plan of Treatment Not on file documented as of this encounter Procedures Procedure Name Priority Date/Time Associated Diagnosis Comments HC PCH SOMATOMEDIN-C (IGF 1) Routine 03/21/2022 2:17 PM EDT Pituitary macroadenoma HC PROLACTIN ASSAY, SERUM Routine 2021 2:17 PM EDT Pituitary macroadenoma HC ESTRADIOL, SERUM Routine 03/21/2022 2 :17 PM EDT Pituitary macroadenoma HC PCH ADRENOCORTICOTROPIC HORMONE Routine 03/21/2022 2:17 PM EDT Pituitary macroadenoma HC THYROID STIMULATING HORMONE, SERUM Routine 03/21/2022 2:17 PM EDT Pituitary macroadenoma HC FREE THYROXINE (T4) Routine 2 2:17 PM EDT Pituitary macroadenoma HC LH ASSAY, SERUM Routine 03/21/2022 2: 17 PM EDT Pituitary macroadenoma HC FSH ASSAY, SERUM Routine 03/21/2022 2 :17 PM EDT Pituitary macroadenoma HC CORTISOL, BLOOD Routine 03/21/2022 2: 17 PM EDT Pituitary macroadenoma HC VENIPUNCTURE Routine 03/21/2022 2:17 PM EDT Pituitary macroadenoma documented in this encounter Results * Basic Metabolic Panel (non-fasting) (03/21/2022 2:17 PM EDT) Glucose 88 65 - 199 mg/dL [facility] Comment:Diabetes: >=200 mg/d L plus symptoms Blood Urea Nitrogen 12 8 - 18 mg/dL [facility] Creatinine 0.86 0.70 - 1.20 mg/dL [facility] Sodium 139 135 - 145 mmol/L [facility] Potassium 4.0 3.5 - 5.0 mmol/L [facility] Comment: Please note: ??Patients with WBC >100,000 may have falsely elevated Potassium levels. ??For accurate Potassium quantification in these patients send serum separator tube (gold top) for subsequent determinations. ??Contact the Clinical Chemistry Laboratory if there are any questions. Chloride 103 98 - 107 mmol/L [facility] Carbon Dioxide 28 22 - 31 mmol/L [facility] Anion Gap 8 5 - 15 mmol/L [facility] Calcium 9.6 8.5 - 10.5 mg/dL [facility] Est Glomerular Filtration Rate 90 >=60 mL/min/1. 73 m?? [facility] Comment: This patient's estimated GFR [...] and symptoms in addition to eGFR. Blood 03/21/2022 2:17 PM EDT 03/21/2022 2:37 PM EDT Narrative Resulting Agency Comment Spec In Lab Segun Guerrero MD CHEMISTRY ORDERABLES Performing Organization Address [facility] de Phone Number [facility] [place] [address] * Insulin Like GF-1 (03/21/2022 2:17 PM EDT) Pathologist [facility] Igf-1 Z-Score (JANUARY) 211 59 - 279 ng/mL [facility] Comment: Test Performed by: [facility] [place] [address] Landscaping Crew Leader: Damian Gates M.D. Ph.D.; CLIA# [id number] IGF-1 Z-score 1.28 -2.0 - 2.0 SD [facility] Comment: ADDITIONAL INFORMATION This test was developed and its performance characteristics determined by [facility] in a manner consistent with CLIA requirements. This test has not been cleared or approved by the U.S. Food and Drug Administration. Test Performed by: [facility] [place] [address] Landscaping Crew Leader: Damian Gates M.D. Ph.D.; CLIA# [id number] Blood 03/21/2022 2:17 PM EDT 03/21/2022 3:28 PM EDT Narrative Resulting Agency Comment Spec In Lab Segun Guerrero MD LAB SEND OUT ORDERAB LES Performing Organization Address [facility]/ZIP Co de Phone Number [facility] [place] [address] * Estradiol (03/21/2022 2:17 PM EDT) Estradiol 79 pg/mL [facility] Comment: Reference ranges: Males: Adult: ? 11 to 43 pg/mL Females: Non- females: ?Follicular: ??12-233 pg/mL ?Ovulation: ?? 41-398 pg/mL ?Luteal: ?22-341 pg/mL ?Postmenopausal: ?? <5 - 138 pg/mL females: ?1st trimester: ??154-3243 pg/mL ?2nd trimester: ??1561-83983 pg/mL ?3rd trimester: ??8525- >85218 pg/mL Blood 03/21/2022 2:17 PM EDT 03/21/2022 2:37 PM EDT Narrative Resulting Agency Comment Spec In Lab Segun Guerrero MD CHEMISTRY ORDERABLES [facility] [place] [address] * Luteinizing Hormone (03/21/2022 2:17 PM EDT) Luteinizing Hormone 5.8 mlU/ML [facility] Comment: Reference Ranges Male: ? 1.7-8.6 mIU/mL Female ?? Follicular: ?2.4-12.6 mIU/mL ?? Ovulation: ? 14.0-95.6 mIU/mL ?? Luteal: ?1.0-11.4 mIU/mL ?? Postmenopausal: ?7.7-58.5 mIU/mL Blood 03/21/2022 2:17 PM EDT 03/21/2022 2:37 PM EDT Narrative Resulting Agency Comment Spec In Lab Segun Guerrero MD CHEMISTRY ORDERABLES Performing Organization Address [facility] de Phone Number [facility] [place] [address] * Follicle Stimulating Hormone (03/21/2022 2:17 PM EDT) Follicle Stimulating Hormone 5.7 mlU/ML [facility] Comment: Reference Ranges Male: ? 1.5-12.4 mIU/mL Female ?? Follicular: ?3.5-12.5 mIU/mL ?? Ovulation: ? 4.7-21.5 mIU/mL ?? Luteal: ?1.7-7.7 mIU/mL ?? Postmenopausal: ?25.8-134.8 mIU/mL Blood 03/21/2022 2:17 PM EDT 03/21/2022 2:37 PM EDT Narrative Resulting Agency Comment Spec In Lab Segun Guerrero MD CHEMISTRY ORDERABLES Performing Organization Address [facility] de Phone Number [facility] [place] [address] * Cortisol (03/21/2022 2:17 PM EDT) Cortisol 10.5 mcg/dL [facility] Comment: Reference ranges: ??AM (6-10am): ??4.8-19.5 mcg/dL ??PM (4-8pm) : ??2.5-11.9 mcg/dL Blood 03/21/2022 2:17 PM EDT 03/21/2022 2:37 PM EDT Narrative Resulting Agency Comment Spec In Lab Segun Guerrero MD CHEMISTRY ORDERABLES Performing Organization Address [facility] Co de Phone Number [facility] [place] [address] * (ABNORMAL) ACTH (03/21/2022 2:17 PM EDT) Pathologist [facility] ACTH (JANUARY) 107(H) pg/mL [facility] Comment: REFERENCE VALUE 7.2-63 (a.m. collection) Test Performed by: [address] [address] Landscaping Crew Leader: Damian Gates M.D. Ph.D.; IA# [id number] Blood 03/21/2022 2:17 PM EDT 03/21/2022 3:28 PM EDT Narrative Resulting Agency Comment Spec In Lab Segun Guerrero MD LAB SEND OUT ORDERAB LES Performing Organization Address [facility] Co de Phone Number [facility] [place] [address] * Prolactin (03/21/2022 2:17 PM EDT) Pathologist [facility] Prolactin 4.8 4.8 - 23.3 ng/mL [facility] Blood 03/21/2022 2:17 PM EDT 03/21/2022 2:37 PM EDT Narrative Resulting Agency Comment Spec In Lab Segun Guerrero MD CHEMISTRY ORDERABLES Performing Organization Address [facility] Co de Phone Number [facility] [place] [address] * T4, free (03/21/2022 2:17 PM EDT) Free T4 1.49 0.93 - 1.70 ng/dL [facility] Comment: Reference Interval (ng/dL): Females: ??First Trimester: 0.97-1.68 ??Second Trimester: 0.77-1.51 ??Third Trimester: 0.77-1.49 Blood 03/21/2022 2:17 PM EDT 03/21/2022 2:37 PM EDT Narrative Resulting Agency Comment Spec In Lab Segun Guerrero MD CHEMISTRY ORDERABLES Performing Organization Address [facility] Co de Phone Number [facility] [place] [address] * TSH (03/21/2022 2:17 PM EDT) Thyroid Stimulating Hormone 1.58 0.27 - 4.20 mcIU/mL [facility] Comment: Reference Interval (mcIU/mL): Females: ??First Trimester: 0.23-3.88 ??Second Trimester: 0.22-3.90 ??Third Trimester: 0.44-4.66 Blood 03/21/2022 2:17 PM EDT 03/21/2022 2:37 PM EDT Narrative Resulting Agency Comment Spec In Lab Segun Guerrero MD CHEMISTRY ORDERABLES Performing Organization Address [facility] Co de Phone Number [facility] [place] [address] documented in this encounter Visit Diagnoses Diagnosis Pituitary macroadenoma Benign neoplasm of pituitary gland and craniopharyngeal duct (pouch) documented in this encounter
--- OUTSIDE RECORDS SUMMARY | 2024-09-16 17:46 | XMS_ITS | Encounter Summary ---
Author Organization [facility] [place] [address] Care Team Providers Care Bindery Operator Name Role Phone Nate Tariq MD Primary Care Provider [phone] Encounter Details Date Type Department Care Team (Late st Contact Info) Description 03/22/2022 [place] [phone] Kathie Medrano Social History Tobacco Use Types Packs/Day Years Used Date Smoking Tobacco: Never Smokeless Tobacco: Never Sex and Gender Information Value Date Recorded Sex Assigned at Not on file Gender Identity Not on file Sexual Orientation Not on file documented as of this encounter Miscellaneous Notes * Telephone Encounter - Kathie Medrano - 03/22/2022 9:46 AM EDT Left message to schedule surgery with Dr. England documented in this encounter Plan of Treatment Not on file documented as of this encounter Visit Diagnoses Not on filedocumented in this encounter Care Teams Bindery Operator Relationship Specialty Start Date End Date Nate Tariq MD [address] [place] [id number] PCP - General Family Medicine 04/03/22 documented as of this encounter
--- OUTSIDE RECORDS SUMMARY | 2024-09-16 17:46 | XMS_ITS | Encounter Summary ---
Author [facility] [place] [place] [address] Care Team Providers Care Canal Superintendent Name Role Phone Unavailable Primary Care Provider Unavailabl e Encounter Details Date Type Department Care Team (Late st Contact Info) Description 03/13/2022 External [place] [address] Social History Tobacco Use Types Packs/Day Years Used Date Smoking Tobacco: Never Assessed Sex and Gender Information Value Date Recorded Sex Assigned at Not on file Gender Identity Not on file Sexual Orientation Not on file documented as of this encounter Plan of Treatment Not on file documented as of this encounter Procedures Procedure Name Priority Date/Time Associated Diagnosis Comments ECG SCAN Routine 03/13/2022 documented in this encounter Results * Scan Doc: ECG (03/13/2022) Historical Provider MD MARTINES MGMeghan SCAN EX T ORDR/RSLT documented in this encounter Visit Diagnoses Not on filedocumented in this encounter
--- OUTSIDE RECORDS SUMMARY | 2024-09-16 17:46 | XMS_ITS | Encounter Summary ---
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 [address] [address] [facility] Referral ID Status Reason Start Date Expiration Date Visits Re quested Visits Authorized [id number] 1 1 Encounter Details Date Type Department Care Team (Late st Contact Info) Description 04/03/2022 7:40 AM EDT - 04/03/2022 10:25 AM EDT [facility] [place] [address] [facility] [address] [place] [address] @TRANSSPHENOIDAL HYPOPHYSECTOMY (WRVU 23.37) Social History Tobacco Use Types Packs/Day Years [...] Sign Reading Time Taken Comments Blood Pressure 131/91 04/03/2022 10:15 AM EDT Pulse 97 04/03/2022 10:16 AM EDT Temperature 37 ??C (98.6 ??F) 04/03/2022 10:15 AM EDT Respiratory Rate 18 04/03/2022 6:31 AM EDT Oxygen Saturation 100% 04/03/2022 10:16 AM EDT Inhaled Oxygen Concentration - - Weight 75.5 kg (166 lb 7.2 oz) 04/03/2022 6:31 A M EDT Height 167.6 cm (5' 5.98) 04/03/2022 6:31 AM ED T Body Mass Index 26.88 04/03/2022 6:31 AM EDT documented in this encounter Discharge Summaries * Tiffany Bustos PA - 04/06/2022 7:01 AM EDT This dictation platform is no longer active. Please use [employer]. Neurosurgery Discharge Summary Patient Name: Amy Mccall Patient Age: 36 y.o. Birthdate: 1985 Admit date: 04/03/2022 Discharge date: 04/06/2022 Attending Physician: Thania England MD Discharge Diagnoses: Recurrent pituitary macroadenoma Operations/Major Procedures: Procedure(s): @TRANSSPHENOIDAL HYPOPHYSECTOMY (WRVU 23.37) STEREOTACTIC COMPUTER-ASSTD NAVIGATIONAL CRANIAL INTRADURAL (WRVU 3.75) 04/03/2022 History of Presentation: mAy Mccall is a 36 y.o. female who presents for evaluation pituitary macroadenoma. She underwent initial resection of a pituitary mass 5-6 years ago at an outside hospital. Her symptoms prior to this operation were visual disturbances and swelling of the hands and feet. 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 Postoperatively here symptoms improved significantly and [...] Hospital Course: Patient was admitted electively to [facility] via the same day surgery program and [...] confrontation. No facial asymmetry Tongue midline MOTOR: RUE:01/05 LUE:55 RLE: 01/05 LLE: 01/05 No pronator drift LT sensation intact x [...] who have questions please contact the health nonfarm animal caretaker that requested your imaging first. Electronically signed by: Hannah Mckeon MD, [facility] ([phone]), at 04/03/2022 5:12 PM Pending Studies and [...] anticoagulant, and non-steroidal anti-inflammatory (NSAIDs) drugs. Common abru-mlp-bbfojuv medications which should be avoided include Aspirin, [...] medication until re-evaluated by your neurosurgeon or video editor. [x] PPIs or H2 blockers - Gastrointestinal [...] to pass. These medications can be obtained etci-flh-[id number] and their use is recommended on an [...] telehealthappointment. Please call the Neurosurgery Office at [phone] if you do not receive a scheduled appointment. Please follow up in the Endocrinology Clinic. Please call the Endocrinology Office at [phone] if you do not receive a scheduled appointment. Primary Reason for Hospitalization: Pituitary macroadenoma Condition at Discharge: stable HOW TO REACH NEUROSURGERY Office Hours: Sunday through Sunday, 8am-5pm. Call . On weekends or after office hours: Call [phone] and ask the auto former machine operator to page the Neurosurgery Resident/Advanced Practice Provider bulk station agent. IMPORTANT PHONE NUMBERS: Outpatient Nurse (Joy Saab) Inpatient Nurses Neurosurgical Resident/Advanced Practice Provider On-Call (after 5pm or before 8am) Neurosurgery offices (Sunday through Sunday between 8am-5pm): Adult Neurosurgery Dr. Chris England Pediatric Neurosurgery Dr. Kerry Méndez Advanced Practice Providers Mone Alarcon, Nurse Practitioner (outpatient) Laly Cortes, Physician Doubler Operator (inpatient) Minoo Quinn, Nurse Practitioner (inpatient) Tiffany Bustos, Physician Doubler Operator (inpatient) Tiffany Godfrey, Physician Doubler Operator (inpatient) Trini Phelps Nurse Practitioner (outpatient: vascular) Corrie Sheldon Physician Doubler Operator (outpatient: spine) Jose David Small, Nurse Practitioner (inpatient/outpatient) Kalen Mc Physician Doubler Operator (outpatient) Carolina Davila, Nurse Practitioner (outpatient: neuro-oncology) General Instructions None Future Appointments and Orders Future Appointments and Orders Future Appointments Provider Department Dept Phone 05/02/2022 11:00 AM Thania England MD Neurosurgery at [facility] Arrive at: Home [phone] Please do not come in for this [...] Center 05/02/2022 11:00 AM Thania England MD [facility] [id number] [facility] Primary Care Doctor: Nate Tariq MD [phone] Signed: FRANCESCO Roman 04/06/2022 documented in this [...] anticoagulant, and non-steroidal anti-inflammatory (NSAIDs) drugs. Common sywn-crl-xjwbnvc medications which should be avoided include Aspirin, [...] medication until re-evaluated by your neurosurgeon or video editor. [x] PPIs or H2 blockers - Gastrointestinal [...] to pass. These medications can be obtained oehd-umk-pdywbsk and their use is recommended on an [...] telehealthappointment. Please call the Neurosurgery Office at [phone] if you do not receive a scheduled appointment. Please follow up in the Endocrinology Clinic. Please call the Endocrinology Office at [phone] if you do not receive a scheduled appointment. Primary Reason for Hospitalization: Pituitary macroadenoma Condition at Discharge: stable HOW TO REACH NEUROSURGERY Office Hours: Sunday through Sunday, 8am-5pm. Call . On weekends or after office hours: Call [phone] and ask the auto former machine operator to page the Neurosurgery Resident/Advanced Practice Provider bulk station agent. IMPORTANT PHONE NUMBERS: Outpatient Nurse (Joy Saab) Inpatient Nurses Neurosurgical Resident/Advanced Practice Provider On-Call (after 5pm or before 8am) Neurosurgery offices (Sunday through Sunday between 8am-5pm): Adult Neurosurgery Dr. Chris England Pediatric Neurosurgery Dr. Kerry Méndez Advanced Practice Providers Mone Alarcon, Nurse Practitioner (outpatient) Laly Cortes, Physician Doubler Operator (inpatient) Minoo Quinn, Nurse Practitioner (inpatient) Tiffany Bustos, Physician Doubler Operator (inpatient) Tiffany Godfrey, Physician Doubler Operator (inpatient) Trini Phelps, Nurse Practitioner (outpatient: vascular) Corrie Sheldon, Physician Doubler Operator (outpatient: spine) Jose David Small, Nurse Practitioner (inpatient/outpatient) Kalen Mc, Physician Doubler Operator (outpatient) Carolina Davila, Nurse Practitioner (outpatient: neuro-oncology) [...] KINDRA removed. Pt has cell phone with railcar switchman , tablet, headphones and other belongings. Room searched no other personal item seen. Pt refuse wheelchair. 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 No concern for DI at this time. [...] [P.O.:1080] Out: 1875 [Urine:1875] LABS: Recent Labs 04/06/225 04/05/22 0106 04/04/22 0033 WBC 7.6 12.0* [...] who have questions please contact the health nonfarm animal caretaker that requested your imaging first. Electronically signed by: Hannah Mckeon MD, [facility] ([phone]), at 04/03/2022 5:12 PM Active Hospital Problems Diagnosis ??? Pituitary adenoma Resolved Hospital Problems No resolved problems to display. There are no active non-hospital problems to display for this patient. Amy Frias MD 04/06/2022 * Amy Frias MD - 04/05/2022 7:49 AM EDT NEUROSURGERY PROGRESS NOTE PLEASE PAGE [phone] WITH QUESTIONS ID: Amy Mccall is a [...] to ensure that she does not requiresupplementation termite technician. No concern for DI at this time, [...] who have questions please contact the health nonfarm animal caretaker that requested your imaging first. Electronically signed by: Hannah Mckeon MD, [facility] ([phone]), at 04/03/2022 5:12 PM Active Hospital Problems Diagnosis ??? Pituitary adenoma Resolved Hospital Problems No resolved problems to display. There are no active non-hospital problems to display for this patient. Amy Frias MD 04/04/2022 * Nnamdi Cifuentes MD - 04/04/2022 7:00 AM EDT NEUROSURGERY PROGRESS NOTE PLEASE PAGE [phone] WITH QUESTIONS ID: Amy Mccall is a [...] diet. Drink to thirst -Strict I&O q2h; maintian Harper -Stress ulcer prophylaxis. -DVT prophylaxis: SCDs. [...] who have questions please contact the health nonfarm animal caretaker that requested your imaging first. Electronically signed by: Hannah Mckeon MD, [facility] ([phone]), at 04/03/2022 5:12 PM Active Hospital Problems [...] 04/03/2022 7:03 AM EDT 24-HOUR UPDATE Amy Mccall was seen in [facility]. The patient's history and physical exam have [...] agreement with plan. Keira FLORES, RN Pager #[phone] * Plan of Care - Pablo Browne [...] Admission order reviewed. Primary Insurance on file: MVP Secondary Insurance on file:@ Primary care provider on file: Nate Tariq MD [phone] Pharmacy: [facility] [address] [address] Advance Care Planning: Attempt Cardiopulmonary Resuscitation - Inpatient <no information> -Advanced Directive: No, declines Current Functional Ability: Independent Functional Status Prior to Admission: Independent Home Environment: Others in the home: child(tatianna), dependent, spouse, pet(s). Current Living Arrangements: home/apartment/condo. Accessibility Concerns:2 story, 1 SOPHIE. (children ages 8,4: dog and two cats) Current DME: none [address] [place] [address] Social & Family Supports: All names listed [...] via car/ when medically ready. Registered Nurse Indoor Landscape Architect / Feed Research Aide will continue to follow patient???s progress and remain available if situation changes for coordination of care, psychosocial support and/or discharge planning. 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 She initially had swelling in the hands and feet and was told to have thyroid problem. Her symptoms progress and when she developed vision changes. Imaging of her head was done and was found to have macroadenoma. She was then told that she had [place] Laguna's disease. After surgical transphenoidal resection she did [...] Osmolality 275 - 295 mOsm/kg 286 Spec Palmer UA 1.005 - 1.030 1.010 Assessment and plan: A 36 y.o. female with a PMH significant for recurrent macroadenoma with Hx of pituitary macroadenoma with ?New Laguna's disease s/p resection ~9892-9719 in [place]. She was admitted on 04/03/2022 for recurrent pituitary macroadenoma resection on 04/03. We are consulted for post-op recurrent pituitary macroadenoma resection. 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 She had tumor resection today. Preop [...] discussed with Dr. Henderson. Epifanio Espinoza MD [facility] Endocrinology PGY-4, Fellow Pager #[phone] Associated attestation - Miquel Henderson MD - [...] Operative Note Patient Name: Amy Mccall : [id number] MR#: [id number] Case Date: 04/03/2022 Surgeon: Surgeon(s) and Role: * Thania England MD - Primary * Nnamdi Cifuentes MD - Resident Preoperative diagnosis: recurrent Phoenix's macroadenoma Postoperative diagnosis: recurrent New Laguna's macroadenoma Procedure(s) (LRB): @TRANSSPHENOIDAL HYPOPHYSECTOMY (WRVU 23.37) [...] Time SPECIMEN TO PATHOLOGY CSI 1 recurrent New Laguna's macroadenoma Sphenoid Sinus Tissue excision 04/03/2022 8:43 AM Time specimen removed from patient: 8:42 AM Number of tissue samples (in container) Multiple SPECIMEN TO PATHOLOGY recurrent [place]una's macroadenoma Intradural excision 04/03/2022 9:32 AM Time specimen removed from patient: 9:32 AM Number of tissue samples (in container) 1 SPECIMEN TO PATHOLOGY CSI 1 recurrent [place]una's macroadenoma Recurrent Pituitary Tumor excision 04/03/2022 9:44 [...] England MD - 04/03/2022 8:[address] [facility] Operative Note Patient Name: Amy Mccall : [id number] MR#: [id number] Case Date: 04/03/2022 Surgeon: Surgeon(s) and Role: * Thania England MD - Primary * Nnamdi Cifuentes MD - Resident Preoperative diagnosis: recurrent [place]una's macroadenoma Postoperative diagnosis: recurrent Phoenix's macroadenoma Procedure(s) (LRB): @TRANSSPHENOIDAL HYPOPHYSECTOMY (WRVU 23.37) [...] patient relays that she was diagnosed with Phoenix's disease at thattime. Repeat imaging shows a [...] EDT Stereotactic Cptr Asstd Px Cranial, Intradural (51773) Yes 04/03/2022 7:38 AM EDT Pituitary adenoma Excis Pituitary, Transnasal/Septal (03370) Yes 04/03/2022 7:38 AM EDT Pituitary adenoma [...] Results * Cortisol (04/06/2022 7:35 AM EDT) [facility] Cortisol 7.0 mcg/dL [facility] Comment: Reference ranges: ??AM (6-10am): ??4.8-19.5 mcg/dL ??PM (4-8pm) : ??2.5-11.9 mcg/dL Blood 04/06/2022 7:35 AM EDT 04/06/2022 7:48 AM EDT Narrative Resulting Agency Comment Spec In Lab Thania England MD CHEMISTRY ORDERABLES Performing Organization Address City/State/[facility] Co de Phone Number [facility] [place] [address] * (ABNORMAL) Differential, Automated (04/06/2022 4:45 AM EDT) [facility] Neutrophil % 48.2 % [facility] Neutrophil Absolute 3.67 1.70 - 6.10 x10(3)/mc L [facility] Lymph % 39.7 % [facility] Lymphocytes Abs 3.0 0.9 - 3.2 x10(3)/mc L [facility] Monocyte % 9.1 % [facility] Monocyte Abs 0.7 0.3 - 0.9 x10(3)/mc L [facility] Eos % 1.6 % [facility] Eosinophils Abs 0.1 0.0 - 0.4 x10(3)/mc L [facility] Basophil % 0.5 % [facility] Baso Absolute 0.0 0.0 - 0.1 x10(3)/mc L [facility] Immature Gran % 0.90 % [facility] Comment: Immature granulocytes(IG's)percentage and absolute count will include metamyelocytes, myelocytes, and promyelocytes. Blood smears from CBCs yielding IG's will be scanned manually for concordance. If this scan disagrees with the automated IG or if promyelocytes are noted, a manual differential will be performed. Immature Gran Absolute 0.07(H) 0.00 - 0.04 x10(3)/[facility] Blood 04/06/2022 4:45 AM EDT 04/06/2022 5:01 AM EDT Narrative Resulting Agency Comment Spec In Lab Nnamdi Cifuentes MD HEMATOLOGY ORDERABLE S [facility] [address] * (ABNORMAL) Hemogram (04/06/2022 4:45 AM EDT) White Blood Cell 7.6 4.0 - 9.5 x10(3)/[facility] Red Blood Cell 3.57(L) 4.00 - [...] HOSPITAL LABORATORY Platelet 229 145 - 357 x10(3)/ L [facility] RDW Standard Deviation 41.9 37.0 - 46.0 fL [facility] RDW coefficient of variation 12.8 11.5 - 14.1 % [facility] Mean Platelet Volume 9.8 7.6 - 12.9 fL [facility] NRBC% auto 0.0 % [facility] NRBC Absolute 0.000 0.000 - 0.000 x10(3)/mc L [facility] Blood 04/06/2022 4:45 AM EDT 04/06/2022 5:01 AM EDT Narrative Resulting Agency Comment Spec In Lab Nnamdi Cifuentes MD HEMATOLOGY ORDERABLE S Performing Organization Address City/[facility]/ZIP Co de Phone Number [facility] [place] [address] * Osmolality (04/06/2022 4:45 AM EDT) Osmolality 286 275 - 295 mOsm/kg [facility] Blood 04/06/2022 4:45 AM EDT 04/06/2022 5:01 AM EDT Narrative Resulting Agency Comment Spec In Lab Thania England MD CHEMISTRY ORDERABLES Performing Organization Address [facility] Co de Phone Number [facility] [address] * (ABNORMAL) Electrolytes panel (04/06/2022 4:45 AM [...] England MD CHEMISTRY ORDERABLES Performing Organization Address City/[facility]/ZIP Co de Phone Number [facility] [place] [address] * Cortisol (04/05/2022 9:05 PM EDT) Cortisol 6.6 mcg/dL [facility] Comment: Reference ranges: ??AM (6-10am): ??4.8-19.5 mcg/dL ??PM (4-8pm) : ??2.5-11.9 mcg/dL Blood 04/05/2022 9:05 PM EDT 04/05/2022 9:16 PM EDT Narrative Resulting Agency Comment Spec In Lab Thania England MD CHEMISTRY ORDERABLES Performing Organization Address [facility] Co de Phone Number [facility] [place] [address] * Cortisol (04/05/2022 3:35 PM EDT) Cortisol 12.2 mcg/dL [facility] Comment: Reference ranges: ??AM (6-10am): ??4.8-19.5 mcg/dL ??PM (4-8pm) : ??2.5-11.9 mcg/dL Blood 04/05/2022 3:35 PM EDT 04/05/2022 4:04 PM EDT Narrative Resulting Agency Comment Spec In Lab Thania England MD CHEMISTRY ORDERABLES Performing Organization Address [facility]/ZIP Co de Phone Number [facility] [place] [address] * Specific Palmer, Urine (04/05/2022 1:35 PM EDT) Specific Palmer Urine Automated 1.025 1.005 - 1.030 [facility] Urine 04/05/2022 1:35 PM EDT 04/05/2022 2:20 PM EDT Narrative Resulting Agency Comment Spec In Lab Thania England MD URINE ORDERABLES Performing Organization Address [facility] Co de Phone Number [facility] [place] [address] * Electrolytes panel (04/05/2022 6:47 AM EDT) Pathologist [facility] Sodium 144 135 - 145 mmol/L [facility] [...] Cifuentes MD CHEMISTRY ORDERABLES Performing Organization Address [facility]/ZIP Co de Phone Number [facility] [address] * Osmolality (04/05/2022 6:47 AM EDT) Osmolality 294 275 - 295 mOsm/kg [facility] Blood Venous Draw / Unknown 04/05/2022 6:47 AM EDT 04/05/2022 6:53 AM EDT Narrative Resulting Agency Comment Spec In Lab Nnamdi Cifuentes MD CHEMISTRY ORDERABLES Performing Organization Address [facility]/ZIP Co de Phone Number [facility] [place] [address] * Cortisol (04/05/2022 6:47 AM EDT) [facility] Cortisol 20.3 mcg/dL [facility] Comment: Reference ranges: ??AM (6-10am): ??4.8-19.5 mcg/dL ??PM (4-8pm) : ??2.5-11.9 mcg/dL Blood 04/05/2022 6:47 AM EDT 04/05/2022 6:53 AM EDT Narrative Resulting Agency Comment Spec In Lab Thania England MD CHEMISTRY ORDERABLES Performing Organization Address [facility] Co de Phone Number [facility] [address] * (ABNORMAL) Differential, Automated (04/05/2022 1:06 AM EDT) [facility] Neutrophil % 73.3 % [facility] Neutrophil Absolute 8.82(H) 1.70 - 6.10 x10(3)/mc L [facility] Lymph % 18.3 % [facility] Lymphocytes Abs 2.2 0.9 - 3.2 x10(3)/mc L [facility] Monocyte % 7.2 % [facility] Monocyte Abs 0.9 0.3 - 0.9 x10(3)/mc L [facility] Eos % 0.2 % [facility] Eosinophils Abs 0.0 0.0 - 0.4 x10(3)/mc L [facility] Basophil % 0.2 % [facility] Baso Absolute 0.0 0.0 - 0.1 x10(3)/mc L [facility] Immature Gran % 0.80 % [facility] Comment: Immature granulocytes(IG's)percentage and absolute count will include metamyelocytes, myelocytes, and promyelocytes. Blood smears from CBCs yielding IG's will be scanned manually for concordance. If this scan disagrees with the automated IG or if promyelocytes are noted, a manual differential will be performed. Immature Gran Absolute 0.10(H) 0.00 - 0.04 x10(3)/mc L [facility] Blood 04/05/2022 1:06 AM EDT 04/05/2022 1:16 AM EDT Narrative Resulting Agency Comment Spec In Lab Nnamdi Cifuentes MD HEMATOLOGY ORDERABLE S [facility] [place] [address] * (ABNORMAL) Hemogram (04/05/2022 1:06 AM EDT) White Blood Cell 12.0(H) 4.0 - 9.5 x10(3)/mc L [facility] Red Blood Cell 4.06 4.00 - 5.21 x10(6)/mc L [facility] Hemoglobin 12.4 [...] RDW Standard Deviation 42.2 37.0 - 46.0 fL [facility] RDW coefficient of variation 13.0 11.5 - 14.1 % [facility] Mean Platelet Volume 9.8 7.6 - 12.9 fL [facility] NRBC% auto 0.0 % [facility] NRBC Absolute 0.000 0.000 - 0.000 x10(3)/mc L [facility] Blood 04/05/2022 1:06 AM EDT 04/05/2022 1:16 AM EDT Narrative Resulting Agency Comment Spec In Lab Nnamdi Cifuentes MD HEMATOLOGY ORDERABLE S Performing Organization Address [facility] Co de Phone Number [facility] [place] [address] * Osmolality (04/05/2022 1:06 AM EDT) Osmolality 290 275 - 295 mOsm/kg [facility] Blood 04/05/2022 1:06 AM EDT 04/05/2022 1:16 AM EDT Narrative Resulting Agency Comment Spec In Lab Thania England MD CHEMISTRY ORDERABLES Performing Organization Address [facility] de Phone Number [facility] [address] * Electrolytes panel (04/05/2022 1:06 AM EDT) [...] England MD CHEMISTRY ORDERABLES Performing Organization Address [facility] Co de Phone Number [facility] [address] * Cortisol (04/05/2022 1:06 AM EDT) Cortisol 22.9 mcg/dL [facility] Comment: Reference ranges: ??AM (6-10am): ??4.8-19.5 mcg/dL ??PM (4-8pm) : ??2.5-11.9 mcg/dL Blood 04/05/2022 1:06 AM EDT 04/05/2022 1:16 AM EDT Narrative Resulting Agency Comment Spec In Lab Thania England MD CHEMISTRY ORDERABLES Performing Organization Address [facility] Co de Phone Number [facility] [place] [address] * Cortisol (04/04/2022 6:25 PM EDT) Cortisol 27.3 mcg/dL [facility] Comment: Reference ranges: ??AM (6-10am): ??4.8-19.5 mcg/dL ??PM (4-8pm) : ??2.5-11.9 mcg/dL Blood 04/04/2022 6:25 PM EDT 04/04/2022 6:32 PM EDT Narrative Resulting Agency Comment Spec In Lab Thania England MD CHEMISTRY ORDERABLES Performing Organization Address [facility]/ZIP Co de Phone Number [facility] [place] [address] * Osmolality (04/04/2022 6:25 PM EDT) Osmolality 289 275 - 295 mOsm/kg [facility] Blood 04/04/2022 6:25 PM EDT 04/04/2022 6:32 PM EDT Narrative Resulting Agency Comment Spec In Lab Thania England MD CHEMISTRY ORDERABLES Performing Organization Address [facility]/ZIP Co de Phone Number [facility] [place] [address] * Electrolytes panel (04/04/2022 6:25 PM EDT) Sodium 139 135 - 145 [...] England MD CHEMISTRY ORDERABLES Performing Organization Address City/[facility]/ZIP Co de Phone Number [facility] [place] [address] * Specific Palmer, Urine (04/04/2022 3:53 PM EDT) Pathologist [facility] Specific Palmer Urine Automated 1.010 1.005 - 1.030 [facility] Urine 04/04/2022 3:53 PM EDT 04/04/2022 4:10 PM EDT Narrative Resulting Agency Comment Spec In Lab Thania England MD URINE ORDERABLES [facility] [place] [address] * Osmolality (04/04/2022 12:35 PM EDT) Osmolality 286 275 - 295 mOsm/kg [facility] Blood 04/04/2022 12:3 5 PM EDT 04/04/2022 12:41 PM EDT Narrative Resulting Agency Comment Spec In Lab Thania England MD CHEMISTRY ORDERABLES Performing Organization Address [facility]/ZIP Co de Phone Number [facility] [place] [address] * Electrolytes panel (04/04/2022 12:35 PM EDT) [...] [facility] Carbon Dioxide Not Perf [facility] Comment:Add-on request. Samp le too old to perform test. Anion Gap Unable to Calculate 5 - 15 mmol/L [facility] Blood 04/04/2022 12:3 5 PM EDT 04/04/2022 12:41 PM EDT Narrative Resulting Agency Comment Spec In Lab Thania England MD CHEMISTRY ORDERABLES Performing Organization Address [facility] Co de Phone Number [facility] [place] [address] * Cortisol (04/04/2022 12:35 PM EDT) Cortisol 36.2 mcg/dL [facility] Comment: Reference ranges: ??AM (6-10am): ??4.8-19.5 mcg/dL ??PM (4-8pm) : ??2.5-11.9 mcg/dL Blood 04/04/2022 12:3 5 PM EDT 04/04/2022 12:41 PM EDT Narrative Resulting Agency Comment Spec In Lab Thania England MD CHEMISTRY ORDERABLES Performing Organization Address [facility] Co de Phone Number [facility] [place] [address] * Cortisol (04/04/2022 8:33 AM EDT) Cortisol 35.2 mcg/dL [facility] Comment: Reference ranges: ??AM (6-10am): ??4.8-19.5 mcg/dL ??PM (4-8pm) : ??2.5-11.9 mcg/dL Blood 04/04/2022 8:33 AM EDT 04/04/2022 8:42 AM EDT Narrative Resulting Agency Comment Spec In Lab Thania England MD CHEMISTRY ORDERABLES Performing Organization Address [facility] Co de Phone Number [facility] [place] [address] * Osmolality (04/04/2022 12:36 AM EDT) Osmolality 287 275 - 295 mOsm/kg [facility] Blood 04/04/2022 12:3 6 AM EDT 04/04/2022 12:46 AM EDT Narrative Resulting Agency Comment Spec In Lab Thania England MD CHEMISTRY ORDERABLES Performing Organization Address [facility] Co de Phone Number [facility] [place] [address] * Electrolytes panel (04/04/2022 12:36 AM EDT) [...] England MD CHEMISTRY ORDERABLES Performing Organization Address [facility] de Phone Number [facility] [address] * Cortisol (04/04/2022 12:36 AM EDT) [facility] Cortisol 32.4 mcg/dL [facility] Comment: Reference ranges: ??AM (6-10am): ??4.8-19.5 mcg/dL ??PM (4-8pm) : ??2.5-11.9 mcg/dL Blood 04/04/2022 12:3 6 AM EDT 04/04/2022 12:46 AM EDT Narrative Resulting Agency Comment Spec In Lab Thania England MD CHEMISTRY ORDERABLES Performing Organization Address [facility] de Phone Number [facility] [address] * (ABNORMAL) Differential, Automated (04/04/2022 12:33 AM EDT) Pathologist [facility] Neutrophil % 80.7 % [facility] Neutrophil Absolute 8.53(H) 1.70 - 6.10 x10(3)/mc L [facility] Lymph % 14.0 % [facility] Lymphocytes Abs 1.5 0.9 - 3.2 x10(3)/mc L [facility] Monocyte % 4.6 % [facility] Monocyte Abs 0.5 0.3 - 0.9 x10(3)/mc L [facility] Eos % 0.0 % [facility] Eosinophils Abs 0.0 0.0 - 0.4 x10(3)/[facility] Basophil % 0.2 % [facility] Baso Absolute 0.0 0.0 - 0.1 x10(3)/[facility] Immature Gran % 0.50 % [facility] Comment: Immature granulocytes(IG's)percentage and absolute count will include metamyelocytes, myelocytes, and promyelocytes. Blood smears from CBCs yielding IG's will be scanned manually for concordance. If this scan disagrees with the automated IG or if promyelocytes are noted, a manual differential will be performed. Immature Gran Absolute 0.05(H) 0.00 - 0.04 x10(3)/[facility] Blood 04/04/2022 12:3 3 AM EDT 04/04/2022 12:46 AM EDT Narrative Resulting Agency Comment Spec In Lab Nnamdi Cifuentes MD HEMATOLOGY ORDERABLE S [facility] [place] [address] * (ABNORMAL) Hemogram (04/04/2022 12:33 AM EDT) White Blood Cell 10.6(H) 4.0 - 9.5 x10(3)/[facility] Red Blood Cell 4.22 4.00 - 5.21 x10(6)/[facility] Hemoglobin 12.6 11.7 - 15.5 g/dL [facility] Hematocrit 37.4 35.7 - 45.8 % [facility] Mean Cell Volume 88.6 82.6 - 94.4 fL [facility] Mean Cell Hemoglobin 29.9 27.1 - 32.0 pg [facility] Mean Cell Hemoglobin Concentration 33.7 31.7 - 35.0 g/dL [facility] Platelet 273 145 - 357 x10(3)/[facility] RDW Standard Deviation 41.8 37.0 - 46.0 [facility] RDW coefficient of variation 12.9 11.5 - 14.1 % [facility] Mean Platelet Volume 9.8 7.6 - 12.9 [facility] NRBC% auto 0.0 % [facility] NRBC Absolute 0.000 0.000 - 0.000 x10(3)/mc L [facility] Blood 04/04/2022 12:3 3 AM EDT 04/04/2022 12:46 AM EDT Narrative Resulting Agency Comment Spec In Lab Nnamdi Cifuentes MD HEMATOLOGY ORDERABLE S Performing Organization Address [facility]/ZIP Co de Phone Number [facility] [place] [address] * Osmolality (04/03/2022 6:01 PM EDT) Osmolality 295 275 - 295 mOsm/kg [facility] Blood 04/03/2022 6:01 PM EDT 04/03/2022 6:10 PM EDT Narrative Resulting Agency Comment Spec In Lab Thania England MD CHEMISTRY ORDERABLES Performing Organization Address [facility] Co de Phone Number [facility] [address] * Electrolytes panel (04/03/2022 6:01 PM EDT) [...] England MD CHEMISTRY ORDERABLES Performing Organization Address [facility] Co de Phone Number [facility] [address] * Cortisol (04/03/2022 6:01 PM EDT) Cortisol 30.1 mcg/dL [facility] Comment: Reference ranges: ??AM (6-10am): ??4.8-19.5 mcg/dL ??PM (4-8pm) : ??2.5-11.9 mcg/dL Blood 04/03/2022 6:01 PM EDT 04/03/2022 6:10 PM EDT Narrative Resulting Agency Comment Spec In Lab Thania England MD CHEMISTRY ORDERABLES Performing Organization Address [facility] Co de Phone Number [facility] [place] [address] * MRI Pituitary wwo Contrast (04/03/2022 4:35 [...] who have questions please contact the health nonfarm animal caretaker that requested your imaging first. ? 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 Post TSS. 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 PostTSS. TECHNIQUE: MRI [...] patients who have questions please contactthe health nonfarm animal caretaker that requested your imaging first. Electronically signed by: Hannah Mckeon MD, [facility]([phone]), at 04/03/2022 5:12 PM Thania England MD IMG MRI ORDERABLES * Specific Palmer, Urine (04/03/2022 1:08 PM EDT) Specific Palmer Urine Automated 1.010 1.005 - 1.030 [facility] Urine 04/03/2022 1:08 PM EDT 04/03/2022 1:33 PM EDT Narrative Resulting Agency Comment Spec In Lab Thania England MD URINE ORDERABLES Performing Organization Address City/[facility]/ZIP Co de Phone Number [facility] [place] [address] * Cortisol (04/03/2022 11:54 AM EDT) Cortisol 28.9 mcg/dL [facility] Comment: Reference ranges: ??AM (6-10am): ??4.8-19.5 mcg/dL ??PM (4-8pm) : ??2.5-11.9 mcg/dL Blood 04/03/2022 11:5 4 AM EDT 04/03/2022 12:14 PM EDT Narrative Resulting Agency Comment Spec In Lab Thania England MD CHEMISTRY ORDERABLES Performing Organization Address City/[facility] Co de Phone Number [facility] [place] [address] * Osmolality (04/03/2022 11:54 AM EDT) Osmolality 286 275 - 295 mOsm/kg [facility] Blood 04/03/2022 11:5 4 AM EDT 04/03/2022 12:14 PM EDT Narrative Resulting Agency Comment Spec In Lab Thania England MD CHEMISTRY ORDERABLES Performing Organization Address [facility] Co de Phone Number [facility] [place] [address] * Electrolytes panel (04/03/2022 11:54 AM EDT) [...] England MD CHEMISTRY ORDERABLES Performing Organization Address [facility] Co de Phone Number [facility] [address] * Creatinine (04/03/2022 11:54 AM EDT) Creatinine [...] England MD CHEMISTRY ORDERABLES Performing Organization Address [facility] Co de Phone Number [facility] [address] * (ABNORMAL) BUN (04/03/2022 11:54 AM EDT) Blood Urea Nitrogen 7(L) 8 - 18 mg/dL [facility] Blood 04/03/2022 11:5 4 AM EDT 04/03/2022 12:14 PM EDT Narrative Resulting Agency Comment Spec In Lab Thania England MD CHEMISTRY ORDERABLES Performing Organization Address [facility] Co de Phone Number [facility] [place] [address] * Specimen to Pathology (04/03/2022 9:44 AM EDT) AP Specimen 04/03/2022 9:44 AM EDT 04/03/2022 9:44 AM EDT Narrative [facility] - 04/03/2022 9:44 AM EDT Specimen requisition ordered. ??Separate Pathology report to follow Thania England MD PATHOLOGY/CYTOLOGY O RDERABLES Performing Organization Address [facility] Co de Phone Number [facility] [place] [address] * Specimen to Pathology (04/03/2022 9:32 AM EDT) AP Specimen 04/03/2022 9:32 AM EDT 04/03/2022 9:32 AM EDT Narrative [facility] - 04/03/2022 9:32 AM EDT Specimen requisition ordered. ??Separate Pathology report to follow Thania England MD PATHOLOGY/CYTOLOGY O LORENZO [facility] [place] [address] * Surgical Pathology Report (04/03/2022 8:43 AM EDT) Final Diagnosis [id number] ? Location: [facility]; [facility]; The signing pathologist has (i) examined the relevant preparation(s) for the specimen(s) and (ii) rendered or confirmed the diagnosis(es). . ?Surgical Pathology DIAGNOSIS A - Sphenoid Sinus Tissue, excision (Multiple) Pituitary adenoma, corticotroph subtype. B - Intradural, excision: Pituitary adenoma, corticotroph subtype. C - Recurrent Pituitary Tumor, excision: Pituitary adenoma, corticotroph subtype. Electronically signed by: ?Virginia MILLER, PhD, [facility] Verified: ??04/07/2022 15:40 ??Pathologist Performed at: ??-[facility] Dept. of Pathology, [place], [place] SYNOPTIC none DISCUSSION Hematoxylin and eosin [...] Tumor, excision (1) . 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 ??Separate Pathology report to follow Thania England MD PATHOLOGY/CYTOLOGY O LORENZO Performing Organization Address [facility] [place] [address] * (ABNORMAL) ACTH (04/03/2022 8:10 AM EDT) ACTH (JANUARY) 77(H) pg/mL [facility] Comment: REFERENCE VALUE 7.2-63 (a.m. collection) Test Performed by: [address] [address] [employer] Installer: Damian Gates M.D. Ph.D.; CLIA# [id number] Blood 04/03/2022 8:10 AM EDT 04/03/2022 10:10 AM EDT Narrative Resulting Agency Comment Spec In Lab Thania England MD LAB SEND OUT ORDERAB LES Performing Organization Address [facility]/ZIP Co de Phone Number [facility] [place] [address] * Lavender Tube HOLD (04/03/2022 7:15 AM EDT) Lavender Hold Sample in lab. [facility] Blood No Charge / Unknown 04/03/2022 7:15 AM EDT 04/03/2022 7:52 AM EDT Nnamdi Cifuentes MD HEMATOLOGY ORDERABLE S Performing Organization Address [facility] Co de Phone Number [facility] [place] [address] * Prolactin (04/03/2022 7:15 AM EDT) Prolactin 5.8 4.8 - 23.3 ng/mL [facility] Blood 04/03/2022 7:15 AM EDT 04/03/2022 7:29 AM EDT Narrative Resulting Agency Comment Spec In Lab Thania England MD CHEMISTRY ORDERABLES Performing Organization Address [facility] Co de Phone Number [facility] [place] [address] * TSH (04/03/2022 7:15 AM EDT) Thyroid Stimulating Hormone 2.95 0.27 - 4.20 mcIU/mL [facility] Comment: Reference Interval (mcIU/mL): Females: ??First Trimester: 0.23-3.88 ??Second Trimester: 0.22-3.90 ??Third Trimester: 0.44-4.66 Blood 04/03/2022 7:15 AM EDT 04/03/2022 7:30 AM EDT Narrative Resulting Agency Comment Spec In Lab Thania England MD CHEMISTRY ORDERABLES Performing Organization Address [facility] Co de Phone Number [facility] [place] [address] * Luteinizing Hormone (04/03/2022 7:15 AM EDT) [...] England MD CHEMISTRY ORDERABLES Performing Organization Address [facility] Co de Phone Number [facility] [place] [address] * Follicle Stimulating Hormone (04/03/2022 7:15 AM [...] England MD CHEMISTRY ORDERABLES Performing Organization Address [facility]/ZIP Co de Phone Number [facility] [place] [address] * Cortisol (04/03/2022 7:15 AM EDT) Cortisol 10.8 mcg/dL [facility] Comment: Reference ranges: ??AM (6-10am): ??4.8-19.5 mcg/dL ??PM (4-8pm) : ??2.5-11.9 mcg/dL Blood 04/03/2022 7:15 AM EDT 04/03/2022 7:30 AM EDT Narrative Resulting Agency Comment Spec In Lab Thania England MD CHEMISTRY ORDERABLES Performing Organization Address City/[facility]/ZIP Co de Phone Number [facility] [place] [address] documented in this encounter Visit Diagnoses Diagnosis [...] Oral, EVERY 6 HOURS PRN, Starting on 04/03/22 [...] Given 04/03/2022 11:49 AM EDT 1,000 mg BUpivacaine-EPINEPHrine (Marcaine-epiNEPHrine) 0.25 %-1:200,000 injection ONCE PRN, Starting on Sun04/03/22 at 0817, Until Court 04/06/22 at 1519, Intra-Operative (Intra-Procedure), Routine Given 04/03/2022 8:17 AM EDT 6 mLs 19- Surgical Site cocaine (Goprelto) 4 % nasal solution ONCE PRN, Starting on Sun04/03/22 at 0821, Until Court 04/06/22 at 1519, Intra-Operative (Intra-Procedure), Routine Given 04/03/2022 8:21 AM EDT 4 mLs 19- Surgical Site docusate sodium (Colace) capsule 100 mg 100 mg, Oral, 2 TIMES DAILY, First dose on Sun04/03/22 at 1230, Until Discontinued, Routine Given 04/06/2022 9:14 AM EDT 100 mg Given 04/05/2022 8:37 PM EDT 100 mg Given 04/05/2022 8:23 AM EDT 100 mg gelatin compressed (Gelfoam) sponge ONCE PRN, Starting on Sun04/03/22 at 0822, Until Court 04/06/22 at 1519, Intra-Operative (Intra-Procedure) Given 04/03/2022 8:22 AM EDT 100 cm 19- Surgical Site oxymetazoline (Afrin) 0.05 % nasal spray Administer over 3 Days, ONCE PRN, Starting on Sun04/03/22 at 0818, Until Court 04/06/22 at 1519, Intra-Operative (Intra-Procedure), Routine Given 04/03/2022 8:18 AM EDT 3 sprays 19- Surgical Site pantoprazole (Protonix) injection 40 mg 40 mg, [...] Given 04/04/2022 9:02 AM EDT 40 mg thrombin (Bovine) (Thrombinar) kit ONCE PRN, Starting on Sun04/03/22 at 0822, Until Court 04/06/22 at 1519, Intra-Operative (Intra-Procedure) Given 04/03/2022 8:22 AM EDT 20,000 Units 19- Surgical Site documented in this encounter Active and Recently [...] Oral, EVERY 6 HOURS PRN, Starting on 04/03/22 [...] Routine documented in this encounter Care Teams Assembly Department Supervisor Relationship Specialty Start Date End Date Nate Tariq MD [address] [place] [address] PCP - General Family Medicine 04/03/22 documented as of this encounter
--- OUTSIDE RECORDS SUMMARY | 2024-09-16 17:46 | XMS_ITS | Encounter Summary ---
Author Organization [facility] Address [facility] [place] [address] Care Team Providers Care Zipper Joiner Name Role Phone Unavailable Primary Care Provider Unavailabl e Encounter Details Date Type Department Care Team (Late st Contact Info) Description 12/04/2016 Ancillary Procedure Radiology Library at [facility] MARK Espinoza [phone] Gurdeep England MD [facility] MARK [place] [address] Social History Tobacco Use Types Packs/Day Years [...] Associated Diagnosis Comments FILM LIBRARY STORAGE ONLY CT HEAD Routine 12/04/2016 12:00 AM EDT documented in this encounter Results * Film Library- Storage Only CT Head (12/04/2016 12:00 AM EDT) Narrative [facility] - 03/24/2022 12:27 PM EDT This exam is auto-finalizing. It's purpose is for storage only. Gurdeep England MD IMG FILM LIBRARY ORD ERABLES [facility] [place] documented in this encounter Visit Diagnoses Not on filedocumented in this encounter
--- OUTSIDE RECORDS SUMMARY | 2024-09-16 17:46 | XMS_ITS | Encounter Summary ---
[place] [address] Care Team Providers Care Dipper Machine Operator Name Role Phone Unavailable Primary Care Provider Unavailabl e Reason for Referral * Consultation (Emergency) - Closed Specialty Diagnoses / Procedures Referred By Gen portillo Referred To Contact Neurosurgery Diagnoses Adenoma of pituitary Hypokalemia Padmini Chiu APRN [address] [place] [address] [place] [address] [facility] [address] [place] [phone] Referral ID Status Reason Start Date Expiration Date V isits Requested Visits Authorized [id number] Closed Consult, Test & Treat PCP Updated and/or Approved 03/14/2022 03/14/2023 6 6 Encounter Details Date Type Department Care Team (Late st Contact Info) Description 03/14/2022 Transcribe Orders eDH Incoming Referrals [phone] Padmini Chiu APRN [address] [place] [address] [place] [address] Adenoma of pituitary; Hypokalemia Social History Tobacco Use Types Packs/Day Years Used Date Smoking Tobacco: Never Assessed Sex and Gender Information Value Date Recorded Sex Assigned at Not on file Gender Identity Not on file Sexual Orientation Not on file documented as of this encounter Plan of Treatment Scheduled Referrals Name Type Priority Associated Diagnoses Order Schedule Referral to Neurosurgery Outpatient Referral STAT Adenoma of pituitary Hypokalemia Ordered: 03/14/2022 documented as of this encounter Visit Diagnoses Diagnosis Adenoma of pituitary Benign neoplasm of pituitary gland and craniopharyngeal duct (pouch) Hypokalemia Hypopotassemia documented in this encounter
--- OUTSIDE RECORDS SUMMARY | 2024-09-16 17:46 | XMS_ITS | Encounter Summary ---
Author Organization [facility] Address [facility] [place] [address] Care Team Providers Care Corrugated Sheet Material Sheeter Name Role Phone Unavailable Primary Care Provider Unavailabl e Encounter Details Date Type Department Care Team (Late st Contact Info) Description 11/22/2016 Ancillary Procedure Radiology Library at [facility] [place] [phone] Gurdeep England MD [facility] [place] [address] Social History Tobacco Use Types Packs/Day Years [...] FILM LIBRARY STORAGE ONLY MR HEAD Routine 11/22/2016 12:00 AM EDT documented in this encounter Results * Film Library- Storage Only MR Head (11/22/2016 12:00 AM EDT) Narrative ELVIS - 03/24/2022 12:28 PM EDT This exam is auto-finalizing. It's purpose is for storage only. Gurdeep England MD IMG FILM LIBRARY ORD ERABLES ELVIS Farias [place] documented in this encounter Visit Diagnoses Not on filedocumented in this encounter
--- OUTSIDE RECORDS SUMMARY | 2024-09-16 17:46 | XMS_ITS | Encounter Summary ---
Author Organization [facility] Address [facility] [place] [address] Care Team Providers Care Learning Technologist Name Role Phone Unavailable Primary Care Provider Unavailabl e Encounter Details Date Type Department Care Team (Late st Contact Info) Description 11/03/2016 12:05 AM EST Ancillary Procedure Radiology Library at [facility] [place] [phone] Gurdeep England MD [facility] [address] Social History Tobacco Use Types Packs/Day Years [...] FILM LIBRARY STORAGE ONLY CT HEAD Routine 11/03/2016 12:05 AM EST documented in this encounter Results * Film Library- Storage Only CT Head (11/03/2016 12:05 AM EST) Narrative ELVIS - 03/24/2022 12:29 PM EDT This exam is auto-finalizing. It's purpose is for storage only. Gurdeep England MD IMG FILM LIBRARY ORD ERABLES [facility] [place] documented in this encounter Visit Diagnoses Not on filedocumented in this encounter
--- OUTSIDE RECORDS SUMMARY | 2024-09-16 17:46 | XMS_ITS | Encounter Summary ---
Author Organization [facility] Address [facility] [place] [address] Care Team Providers Care Billing And Insurance Coordinator Name Role Phone Unavailable Primary Care Provider Unavailabl e Reason for Referral * Consultation (Routine) - Closed Specialty Diagnoses / Procedures Referred By Gen portillo Referred To Contact Endocrinology Diagnoses Pituitary adenoma Gurdeep England MD [facility] [place] [address] [place] [address] [facility] Endocr[facility]ology [address] [place] [address] Referral ID Status Reason Start Date Expiration Date V isits Requested Visits Authorized [id number] Closed Consult, Test & Treat 03/14/2022 03/14/2023 1 1 Encounter Details Date Type Department Care Team (Late st Contact Info) Description 03/14/2022 Notes [place] [phone] Gurdeep England MD [facility] [place] [address] [address] Social History Tobacco Use Types Packs/Day Years Used Date Smoking Tobacco: Never Assessed Sex and Gender Information Value Date Recorded Sex Assigned at Not on file Gender Identity Not on file Sexual Orientation Not on file documented as of this encounter Progress Notes * Gurdeep England MD - 03/14/2022 9:19 AM EDT I spoke with Amy on the phone. She describes a history of presenting approximately 6 years ago to [facility] in [facility]. At that time she had a multitude of symptoms including visual disturbances. 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 She underwent a t ranssphenoidal resection by Dr. Chan and apparently postoperatively her labs normalized. She then has relocated to [place] and also became . Given these changes as well as COVID, she has not been able to follow-up and recently she had a relapse of many of her initial presenting symptoms and was seen yesterday at [facility]. We have obtained an MRI scan that shows a likely recurrence of tumor though there is no optic chiasmatic compression. 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 Undoubtably she will need additional treatment if this is indeed a recurrent ACTH producing adenoma. I will put in for an endocrine consult and we will try to obtain outside images and operative notes to better define the details of her prior treatment. I told her that we will likely be considering another surgery but I am not going to schedule this until we get a few more of the details in place. She is in agreement with this plan and had no further questions documented in this encounter Plan of Treatment Scheduled Referrals Name Type Priority Associated Diagnoses Order Schedule Referral to Endocrinology Outpatient Referral Routine Pituitary adenoma Ordered: 03/14/2022 documented as of this encounter Visit Diagnoses Diagnosis Pituitary adenoma Benign neoplasm of pituitary gland and craniopharyngeal duct (pouch) documented in this encounter
--- OUTSIDE RECORDS SUMMARY | 2024-09-16 17:46 | XMS_ITS | Encounter Summary ---
Author Organization [facility] Address [facility] [place] [address] Care Team Providers Care Soliciting Freight Agent Name Role Phone Unavailable Primary Care Provider Unavailabl e Encounter Details Date Type Department Care Team (Late st Contact Info) Description 03/13/2022 6:55 PM EDT Ancillary Procedure Radiology Library at [facility] [place] [phone] Jaqueline Bradford MD [facility] [place] [address] Social History Tobacco Use Types Packs/Day Years [...] FILM LIBRARY STORAGE ONLY CT HEAD Routine 03/13/2022 6:47 PM EDT documented in this encounter Results * Film Library- Storage Only CT Head (03/13/2022 6:47 PM EDT) Narrative [facility] - 03/13/2022 6:47 PM EDT This exam is auto-finalizing. It's purpose is for storage only. Jaqueline Bradford MD G FILM LIBRARY ORD ERABLES [place], [place] documented in this encounter Visit Diagnoses Not on filedocumented in this encounter
--- OUTSIDE RECORDS SUMMARY | 2024-09-16 17:46 | XMS_ITS | Encounter Summary ---
Author Organization [facility] Address [facility] [place] [address] Care Team Providers Care Breastfeeding Program Coordinator Name Role Phone Unavailable Primary Care Provider Unavailabl e Encounter Details Date Type Department Care Team (Late st Contact Info) Description 03/13/2022 7:00 PM EDT Ancillary Procedure Radiology Library at [facility] [place] [phone] Jaqueline Bradford MD [facility] [place] [address] Social History Tobacco Use Types Packs/Day Years [...] Associated Diagnosis Comments FILM LIBRARY STORAGE ONLY DX CHEST Routine 03/13/2022 6:48 PM EDT documented in this encounter Results * Film Library- Storage Only DX Chest (03/13/2022 6:48 PM EDT) Narrative [facility] - 03/13/2022 6:48 PM EDT This exam is auto-finalizing. It's purpose is for storage only. Jaqueline Bradford MD G FILM LIBRARY ORD ERABLES [place], [place] documented in this encounter Visit Diagnoses Not on filedocumented in this encounter
--- OUTSIDE RECORDS SUMMARY | 2024-09-16 17:46 | XMS_ITS | Encounter Summary ---
Author Organization [facility] Address [facility] [place] [address] Care Team Providers Care Account Administrator Name Role Phone Unavailable Primary Care Provider Unavailabl e Encounter Details Date Type Department Care Team (Late st Contact Info) Description 12/05/2016 Ancillary Procedure Radiology Library at [facility] [place] [phone] Gurdeep England MD [facility] [place] [address] Social History Tobacco Use Types Packs/Day Years [...] FILM LIBRARY STORAGE ONLY CT HEAD Routine 12/05/2016 12:00 AM EDT documented in this encounter Results * Film Library- Storage Only CT Head (12/05/2016 12:00 AM EDT) Narrative ELVIS - 03/24/2022 12:26 PM EDT This exam is auto-finalizing. It's purpose is for storage only. Gurdeep England MD IMG FILM LIBRARY ORD ERABLES [place]VIS [place] documented in this encounter Visit Diagnoses Not on filedocumented in this encounter
--- OUTSIDE RECORDS SUMMARY | 2024-09-16 17:46 | XMS_ITS | Encounter Summary ---
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 Procedures PRO EXCIS PITUITARY, TRANSNASAL/SEPTAL PRO STEREOTACTIC CPTR ASSTD PX CRANIAL, INTRADURAL PRO GRAFTING OF AUTOLOGOUS SOFT TISS BY DIRECT EXCISION @TRANSSPHENOIDAL HYPOPHYSECTOMY (WRVU 23.37) STEREOTACTIC COMPUTER-ASSTD NAVIGATIONAL CRANIAL INTRADURAL (WRVU 3.75) GRAFTING OF AUTOLOGOUS SOFT TISSUE, OTHER, HARVESTED BY DIRECT EXCISION (FAT, DERMIS, OR FASCIA) Gurdeep England MD [facility] [place] [address] [facility] Referral ID Status Reason Start Date Expiration Date Visits Re quested Visits Authorized [id number] 1 1 Encounter Details Date Type Department Care Team (Late st Contact Info) Description 04/03/2022 7:41 AM EDT Anesthesia Event [facility] [place] [address] Essie Carlos MD [facility] [place] [address] Jolly Mace MD [facility] [place] [address] Anesthesia Record Procedure Summary Procedure Name Responsible Anesthesiologist Anesthesia Start Time Anesthesia Stop Time @TRANSSPHENOIDAL HYPOPHYSECTOMY (WRVU 23.37) (Head) Essie Carlos MD 04/03/22 0741 04/03/22 1029 Events Date Time Event Comment 04/03/2022 0724 0741 AN Verify 0741 Start 0741 An Start Data 0751 An Induction 0754 An Intubation 0758 Quick Note Pt hemodynamica lly stable in SVT 0804 Anesthesia Ready 0814 Procedure Start 1002 Extubation/LMA Out 1029 an stop data 1029 Recovery or ICU Handoff Kat ent care was transferred to the destination unit staff after review of the patient's medical history, current anesthetic/surgical status and plan, according to the Provider Handoff Checklist. 1029 Stop Meds Name Total Propofol 300 mg Propofol INF 1,024.08 mg Ondansetron 8 mg Rocuronium 60 mg meTOPROLOL (LOPRESSOR) injection 4 mg ampicillin-sulbactam (Unasyn ) 1.5 g vial attach to sodium chloride 0.9% 50 mL Mini-Bag Plus 1.5 g REMIfentanil INF 1.25 mg Sugammadex 200 mg sodium chloride 0.9% infusion 400 mL Lactated Ringers 300 mL * Agents Name Sevoflurane (et) * Blood No blood administrations on file. Lines, Drains, and Airways Type Details Placement Removal Incision 04/03/22; 826; Righ t; other (see comments) (right nostril- pituitary gland) 04/03/22826 by Natalie Navarro, RN (RETIRED) Peripheral IV Line - Single Lumen 04/03/22; 714; median cubital vein (antecubital fossa), left; [id number] catheter system; Anatomical Landmarks; US Not Used; 20 gauge; Anesthesia; distraction; 04/06/22; 0100 04/03/22 0715 by Beverley Gill RN 04/06/22 010 by Preethi Ariza RN ETT Mask Ventilation: Ea sy (1); ETT Type: Cuffed, Oral; ETT Size: 7 mm; Mac Blade: 3; Notes: Asleep, Pre-O2, Stylette; Attempts: 1; Laryngoscopy Grade: 2; ETT Placement Verified By: Auscultation, Capnometry; Secured at Teeth: 22 cm; Inserted by: Prachi Mace MD; Removal Date: 04/03/22; Removal Time: 1002 04/03/22 0754 by Jolly Mace MD 04/03/22 1002 by Jolly Mace MD Urethral Catheter 04/03/22; 0800; Surg sherine longer than 2 hours, Need for intraoperative urine output monitoring; indwelling double lumen catheter; hydrophilic coated, latex; 14; inserted at this facility; 1; 5; 10; none; drainage bag to dependent drainage; urethral catheter removed, tubing intact; No resistance met.; 04/05/22; 0815 04/03/22 08 by Natalie Navarro RN 04/05/22 08 by Naomy Mccauley RN (RETIRED) Peripheral IV Line - Single Lumen 04/03/22; 801; cephalic vein (lateral side of arm), right (Cephalic v at lateral wrist); [id number] catheter system; Anatomical Landmarks; 20 gauge; Prachi Mace MD; no longer indicated; 04/06/22; 0100 04/03/22 0802 by Jolly Mace MD 04/06/22 0100 by Preethi Ariza RN documented in this encounter Social History Tobacco Use Types Packs/Day Years Used Date Smoking Tobacco: Never Smokeless Tobacco: Never Alcohol Use Standard Drinks/Week Comments Not Currently 0 (1 standard drink = 0.6 oz pur e alcohol) Sex and Gender Information Value Date Recorded Sex Assigned at Not on file Gender Identity Not on file Sexual Orientation Not on file documented as of this encounter OR Notes * Anesthesia Postprocedure Evaluation - Essie Carlos MD - 04/03/2022 10:31 AM EDT Department of Anesthesiology Post-procedure Note Patient: Amy Mccall Procedure Summary Date: 04/03/22 Room / Location: [facility] 1 / [facility] Anesthesia Start: 740 Anesthesia Stop: 1028 Procedures: @TRANSSPHENOIDAL HYPOPHYSECTOMY (WRVU 23.37) (N/A Head) STEREOTACTIC COMPUTER-ASSTD NAVIGATIONAL CRANIAL INTRADURAL (WRVU 3.75) (N/A ) Diagnosis: Pituitary adenoma (recurrent Vail's macroadenoma) Surgeons: Grudeep England MD Responsible Provider: Essie Carlos MD Anesthesia Type: general ASA Status: 2 All Anesthesia Providers: Anesthesiologist: Essie Carlos MD Tree Doctor: Jolly Mace MD Vitals Value Taken Time BP 143/99 04/03/22 1030 Temp Pulse 105 04/03/22 1030 Resp 18 04/03/22 1030 SpO2 100 % 04/03/22 1030 Pain Level 0 04/03/22 1016 Vitals shown include unvalidated device data. Patient Location: PACU/[facility] Level of Consciousness: Conscious but Sleepy Pain Management: Satisfactory Analgesia PONV: None Cardiovascular Status: At Baseline Respiratory Status: At Baseline Postoperative Fluid Status: Intravascular EUvolemia Possible Anesthetic Complications: NONE apparent at time of evaluation Final Primary Anesthesia Type: General (The anesthetic type performed was the same as planned.) Comments: * Anesthesia Preprocedure Evaluation - Essie Carlos MD - 03/31/2022 5:55 PM EDT Pre-Anesthesia Evaluation for: Amy Mccall a 36 y.o. female. Procedure(s): @TRANSSPHENOIDAL HYPOPHYSECTOMY (WRVU 23.37) STEREOTACTIC COMPUTER-ASSTD NAVIGATIONAL CRANIAL INTRADURAL (WRVU 3.75) GRAFTING OF AUTOLOGOUS SOFT TISSUE, OTHER, HARVESTED BY DIRECT EXCISION (FAT, DERMIS, OR FASCIA) There are no problems to display for this patient. No past medical history on file. No past surgical history on file. Social History Tobacco Use ??? Smoking status: Never Smoker ??? Smokeless tobacco: Never Used Substance Use Topics ??? Alcohol use: Not on file Social History Substance and Sexual Activity Drug Use Not on file No Known Allergies Medications: MAR and/or home medications have been reviewed. Physical Exam: Preprocedure Vitals Current as of 03/31/22 1755 No BP, pulse, respiration, SpO2, or temperature recorded. Height: Weight: BMI: IBW: Airway Assessment: Mallampati: I TM distance: >3 FB Neck ROM: full Cardiovascular Assessment: system normal Pulmonary Assessment: unlabored breathing pulmonary exam normal Dental Assessment: Misc Assessment: IV access: Peripheral line Last Filed Perioperative Cognitive Screening None Anesthesia Plan: ASA 2 general, with a(n) intravenous induction PRELIMINARY NOTE - PER CHART REVIEW 36 y.o. 76kg female with a BMI of 27, PMH significant for recurrent pituitary macroadenoma. Her original macroadenoma was resected 5-6 years ago, sxs consisted of paraesthesias and swelling of bilateral hands, facial numbness, phoenix's, and vision changes. Recently developed similar sxs, without vision changes. Has a hx of hypoK. Last BMP 03/21/22 K: 4.0, supplementation? Pt has skin hyperpigmentation possibily associated with increased ACTH. Patient is presenting for a repeat transphenoidal resection. Anesthetic History: No reported prior complications with anesthesia Airway History: No records available for review Allergies reviewed Labs No results for input(s): WBC, HGB, HCT, PLATELET in the last 7068 hours. Recent Labs 03/21/22 1417 NA 139 K 4.0 CL 103 CO2 28 BUN 12 CREATININE 0.86 No results for input(s): AST, ALT, ALKPHOS, BILITOT, BILIDIR in the last 7068 hours. No results for input(s): PT, INR, PTT in the last 168 hours. No results found for: ABORH Exercise tolerance: Greater than 4 METS NPO Status: --- Anesthetic Plan: GA w/ ETT, TIVA Analgesia: tylenol, fentanyl, toradol Antiemetic: zofran, decadron Standard ASA monitoring PIV access, arterial line? Jolly Mace MD 03/31/2022 tool grinder: chart reviewed and patient interviewed and examined in SDA prior to surgery. Agree with resident assessment and plan. Patient with recurrent symptoms s/p resection of pituitary adenoma 5 years ago at outside hospital. NPO>8h. Plan GA. Region - Intracranial (non-vascular) Informed Consent: Anesthetic plan and risks discussed with patient. Use of blood products discussed with patient who. Plan discussed with resident. Anesthesia Screening documented in this encounter Plan of Treatment Not on file documented as of this encounter Visit Diagnoses Not on filedocumented in this encounter Administered Medications Inactive Administered Medications - up to 3 most recent administrations Medication Order MAR Action Action Date Dose Rate Site ampicillin-sulbactam (Unasyn) 1.5 g vial attach to sodium chloride 0.9% 50 mL Mini-Bag Plus 1.5 g, Intravenous, EVERY 6 HOURS, 1 dose, First dose on Sun04/03/22 at 0715, Administer over 15 Minutes, Warning Vesicant/Irritant Medication , Indication for (Active or Suspected): Prophylaxis New Bag 04/03/2022 8:08 AM EDT 1.5 g lactated ringers infusion Intravenous, CONTINUOUS PRN, Starting on Sun04/03/22 at 0800, Until Sun04/03/22 at 1029, Anesthesia Intra-op New Bag 04/03/2022 8:00 AM EDT metoprolol (LOPRESSOR) injection Intravenous, PRN, Starting on Sun04/03/22 at 0814, Until Sun04/03/22 at 1029, Anesthesia Intra-op, Routine Given 04/03/2022 9:47 AM EDT 2 mg Given 04/03/2022 8:15 AM EDT 1 mg Given 04/03/2022 8:14 AM EDT 1 mg ondansetron (pf) (Zofran) (2 mg/mL) injection Intravenous, PRN, Starting on Sun04/03/22 at 0826, Until Sun04/03/22 at 1029, Anesthesia Intra-op, Routine Given 04/03/2022 8:26 AM EDT 8 mg propofoL (Diprivan) (10 mg/mL) infusion Intravenous, CONTINUOUS PRN, Starting on Sun04/03/22 at 0758, Until Sun04/03/22 at 1029, Anesthesia Intra-op, Routine Rate/Dose Change 04/03/2022 9:44 AM EDT 50 mcg/kg/min 22.59 mL/hr New Bag 04/03/2022 7:58 AM EDT 125 mcg/kg/min 56.475 mL /hr propofoL (Diprivan) 10 mg/mL bolus injection (Anesthesia) Intravenous, PRN, Starting on Sun04/03/22 at 0751, Until Sun04/03/22 at 1029, Anesthesia Intra-op Given 04/03/2022 7:53 AM EDT 100 mg Given 04/03/2022 7:52 AM EDT 50 mg Given 04/03/2022 7:51 AM EDT 150 mg remifentaniL (Ultiva) (0.02 mg/mL) infusion (Anesthesia) Intravenous, CONTINUOUS PRN, Starting on Sun04/03/22 at 0758, Until Sun04/03/22 at 1029, Anesthesia Intra-op Rate/Dose Change 04/03/2022 9:42 AM EDT 0.05 mcg/kg/min 11.295 mL/hr New Bag 04/03/2022 7:55 AM EDT 0.15 mcg/kg/min 33.885 m L/hr rocuronium (Zemuron) (10 mg/mL) multi-dose injection Intravenous, PRN, Starting on Sun04/03/22 at 0752, Until Sun04/03/22 at 1029, Anesthesia Intra-op, Routine Given 04/03/2022 8:56 AM EDT 10 mg Given 04/03/2022 7:52 AM EDT 50 mg sodium chloride 0.9% infusion 1,000 mL, at 100 mL/hr, Intravenous, CONTINUOUS, Starting on Sun04/03/22 at 0700, Until Sun04/03/22 at 1124, Day of Surgery (Day of Procedure) New Bag 04/03/2022 7:41 AM EDT sugammadex (Bridion) 100 mg/mL injection Intravenous, PRN, Starting on Sun04/03/22 at 0956, Until Sun04/03/22 at 1029, Anesthesia Intra-op, Routine Given 04/03/2022 9:56 AM EDT 200 mg documented in this encounter Care Teams Pharmacy Account Director Relationship Specialty Start Date End Date Nate Tariq MD [address] [place] [address] PCP - General Family Medicine 04/03/22 documented as of this encounter
--- OUTSIDE RECORDS SUMMARY | 2024-09-16 17:46 | XMS_ITS | Encounter Summary ---
Author Organization [facility] Address [facility] [place] [address] Care Team Providers Care Home Improvement Contractor Name Role Phone Unavailable Primary Care Provider Unavailabl e Encounter Details Date Type Department Care Team (Late st Contact Info) Description 01/04/2017 Ancillary Procedure Radiology Library at [facility] [place] [phone] Gurdeep England MD [facility] [place] [address] Social History Tobacco Use Types Packs/Day Years [...] FILM LIBRARY STORAGE ONLY MR HEAD Routine 01/04/2017 12:00 AM EDT documented in this encounter Results * Film Library- Storage Only MR Head (01/04/2017 12:00 AM EDT) Narrative ELVIS - 03/24/2022 12:25 PM EDT This exam is auto-finalizing. It's purpose is for storage only. Gurdeep England MD IMG FILM LIBRARY ORD ERABLES ELVIS Farias [place] documented in this encounter Visit Diagnoses Not on filedocumented in this encounter
--- OUTSIDE RECORDS SUMMARY | 2024-09-16 17:46 | XMS_ITS | Encounter Summary ---
Author Organization [facility] Address [facility] [place] [address] Care Team Providers Care Collections Curator Name Role Phone Unavailable Primary Care Provider Unavailabl e Encounter Details Date Type Department Care Team (Late st Contact Info) Description 03/17/2022 Orders Only [place] [address] Gurdeep England MD [facility] [place] [address] Pituitary adenoma Social History Tobacco Use Types [...]
--- NOTE | 2024-09-16 18:00 | DI.RAD_ITS ---
Exam(s) XR KNEE RT 3V AP,LAT,ERWIN EXAM: XR KNEE RT 3V AP,LAT,ERWIN CLINICAL HISTORY: evaluate pathology, M25.461 - Effusion, right knee M25.469 - Effusion. TECHNIQUE: 2D digital imaging was performed of the right knee. Three views obtained. AP, lateral an d PA tunnel views were obtained. COMPARISON: No exams were available for comparison FINDINGS: BONES: No acute fracture is present. No bony destructive lesion is seen. JOINTS: The knee is normally aligned. There is a small joint effusion. SOFT TISSUE: Normal. IMPRESSION: There is a small joint effusion. DATA REPOSITORY: RADIATION DOSE DELIVERED:
--- NOTE | 2024-09-16 19:17 | DI.VRAD_ITS ---
PROCEDURE INFORMATION: Exam: XR Right Knee Exam date and time: 09/16/2024 6:08 PM Age: 39 years old Clinical indication: Pain; Right; Patient HX: PT states she woke up in the morning with her knee swollen TECHNIQUE: Imaging protocol: Radiologic exam of the right knee. Views: 3 views. COMPARISON: No relevant prior studies available. FINDINGS: Bones/joints: A mild joint effusion is suspected. There are no acute fractures. There is no dislocation. There is no significant joint space narrowing. Mild patellar osteophytes are noted. Soft tissues: No soft tissue gas. No radiopaque foreign bodies. IMPRESSION: No acute osseous abnormality. If symptoms persist, follow-up imaging is advised. Dictated and Authenticated by: Nahid Ro MD. Ordering:NIEVES Moore MD
== END 2024-09-16 18:04 ==
LOC: DI 17:44
PROVIDERS: PCP Family Medicine; Visit Provider Nurse Practitioner Family
DX: M25.461 Effusion, right knee (principal)
CPT/HCPCS: 73562

== ENCOUNTER 2024-10-11 10:40 | Emergency (ER) | payer OTHER, SELFPAY ==
[2024-10-11 10:43] VITALS: BP 158/96; PULSE 66; RESP 16; TEMP 36.8; O2SAT 99
--- NOTE | 2024-10-11 11:04 | W.ED.GENAD ---
Discharge Plan Disposition Patient Disposition: Transfer-Acute Inpatient Care Specific Acute Inpt Facility: [facility] Condition: Stable Discharge Details Clinical Impression: Facial numbness Primary Care Provider: Nate Tariq ED Provider: Aisha Taylor Home Meds and New Rx's Prescriptions: No Action No Known Home Meds Discharge Instructions Instructions: Paresthesia (DC) Additional Instructions: You are seen in the day for evaluation of numbness and tingling in your face and hands. This is concerning given your history of pituitary tumor with similar symptoms. For this reason you are being transferred to [facility] emergency department where they can perform an MRI and you could be evaluated by the neurology and/or neurosurgery teams. Please drive directly to [facility] emergency department, you have been accepted by Dr. Jones, and thank you for allowing us to be part of your care. HPI General Mode of arrival: ambulatory. Date/Time Provider Initiated Documentation: 10/11/24 10:41. Limitations to Documentation: no limitations. Information obtained by: patient and old records reviewed. HPI Narrative: HPI: This is a 39-year-old female patient with a past medical history most notable for a pituitary Phoenix's macroadenoma, initially resected in 2015, with recurrence and subsequent resection at [facility] in 2021, not on any hormonal replacement medications, presenting for evaluation of 1 day of numbness and tingling to the face and bilateral upper extremities. The patient reports that these are the same symptoms that she experienced the last time her tumor recurred. This often happens around the time of menstruation, patient does state that she started her period yesterday. 2 weeks ago the patient had a viral-like illness, states that she lost her sense of taste at that time, and it has not yet returned. States that she has not had any headache, dizziness, or vision changes. No nausea or vomiting though her p.o. intake has been slightly decreased since his viral illness. No changes to bowel or bladder habits, no trauma. The patient has not been seen by [facility] since 2021. Exam: Gen: Awake and alert, in no apparent distress HEENT: Non-icteric sclera, PERRL, EOMs full without nystagmus, visual martin preserved. Neck: Supple Lungs: No apparent respiratory distress, normal respiratory effort. CV: Appears well perfused, heart with regular rate and rhythm, strong pulses Abdomen: Non-distended MSK: Moves 4 extremities without apparent limitation in ROM Skin: Visualized skin without rashes, cyanosis. Neuro: Normal Gait, cranial nerves II through XII intact and symmetrical bilaterally, subjective tingling and decreased sensation to bilateral face, bilateral shoulders and upper extremities. No sensory changes to the torso or lower extremities. 5 out of 5 strength x 4 extremities. Psych: Appropriate for situation. MDM: This is a 39-year-old female patient presenting for evaluation of numbness and tingling in her face and upper extremities. Differential includes but is not limited to recurrence of pituitary adenoma, hormonal abnormalities including adrenal insufficiency (patient does not take stress dose steroids at baseline), metabolic and electrolyte derangements, kidney injury, dehydration. The patient has no focal or unilateral neurodeficits to significantly increase my concern for CVA, intracranial hemorrhage, and has no fever to suggest meningitis or encephalitis. We will obtain laboratory studies to include CBC, CMP, magnesium, TSH, urinalysis and screen. I will send out for cortisol, FSH/LH, prolactin. As we are unable to obtain MRI on the weekends at this facility, I will begin with a CT with and without contrast of the brain to evaluate for obvious abnormality. ED Course: I independently interpreted the laboratory studies, which show no significant leukocytosis, anemia, or thrombocytopenia. The chemistry panel is without evidence of electrolyte abnormality other than a mildly low potassium, which was repleted orally, kidney dysfunction, or liver injury. TSH within normal limits. Urinalysis without infectious findings. CT head without evidence of new tumor or mass effect, intracranial hemorrhage or other acute abnormality. I discussed the patient's case with neurology and neurosurgery, and they are concerned enough about the patient's onset of symptoms and their similarity to her past pituitary lesion that they recommend transport ED to ED to [facility] to have an MRI done today. The patient has a family member who can drive her POV, and is understanding that she needs to present to the emergency department. Excepted by neurology physician Dr. Jones, left our facility in hemodynamically stable condition. Aisha Taylor MD Related Data Home Medications ?Medication ?Instructions ?Recorded ?Confirmed Unknown [No Known Home Meds] 04/03/23 10/11/24 Allergies Allergy/AdvReac Type Severity Reaction Status Date / Time No Known Allergies Allergy Unverified 10/11/24 10:43 General Stated Complaint: GenMedical FELA: 3 Course Vital Signs Vital signs: Vital Signs Temperature 36.8 C 10/11/24 10:43 Pulse 66 10/11/24 10:43 Respiratory Rate 16 10/11/24 10:43 Blood Pressure 158/96 H 10/11/24 10:43 Pulse Oximetry 99 10/11/24 10:43 Temperature 36.8 C 10/11/24 10:43 Temperature Source Oral 10/11/24 10:43 Pulse 66 10/11/24 10:43 Respiratory Rate 16 10/11/24 10:43 Blood Pressure 158/96 H 10/11/24 10:43 Blood Pressure Position Sitting 10/11/24 10:43 Pulse Oximetry 99 10/11/24 10:43 Oxygen Delivery Method Room Air 10/11/24 10:43 Oxygen Flow Rate 0 10/11/24 10:43 Pain Level 0 10/11/24 10:43 Medical Decision Making Quality:SDOH Health Related Social Needs: No Data to Display PFSH All Active Problems (Updated 10/11/24 @ 14:19 by Aisha Taylor MD) Facial numbness (Acute) Medical History Adenoma of pituitary Surgical History H/O tubal ligation S/P selective transsphenoidal pituitary adenomectomy History of section S/P cholecystectomy Social History Smoking/Tobacco Use Status: Never Smoking risk assessment performed?: Yes Alcohol Intake: never Drug use: Rarely Substance use type: does not use Housing: house Do you feel safe at home: Yes Do you feel safe in your relationship?: Yes
[2024-10-11 11:14] LABS: Abs Immature Grans 0.05 10^3/uL (0.0-0.06); Absolute Basophil Count 0.02 10^3/uL (0.0-0.2); Absolute Eosinophil Count 0.11 10^3/uL (0.0-0.7); Absolute Lymphocyte Count 4.26 10^3/uL (1.2-3.4); Basophils % 0.2 %; HCT 43.3 % (36.0-46.0); HGB 14.4 g/dL (11.2-15.7); Immature Grans % 0.4 %; Lymphocytes % 37.6 %; MCH 29.7 pg (27.0-33.0); MCHC 33.3 % (32.0-36.0); MCV 89 fL (80-95); Monocytes % 8.6 %; Neutrophils % 52.2 %; Platelet Count 369 10^3/uL (130-400); RBC 4.85 10^6/uL (3.93-5.22); RDW 12.1 % (11.7-14.6); WBC 11.34 10^3/uL (4.4-10.8)
[2024-10-11 11:16] LABS: Absolute Monocyte Count 0.98 10^3/uL (0.1-0.8); Absolute Neutrophil Count 5.92 10^3/uL (1.2-6.7)
[2024-10-11 11:22] LABS: Bilirubin Negative (Negative); Blood Moderate (Negative); Clarity Clear (Clear); Glucose Negative (Negative); Ketones Negative (Negative); Leukocyte Esterase Negative (Negative); Nitrite Negative (Negative); Specific Gravity >= 1.030 (1.005-1.025); Urobilinogen 0.2 mg/dL (Up to 0.2); pH 5.5 (5-8)
[2024-10-11 11:33] LABS: Bacteria Few HPF (Negative); Crystals Negative HPF (Negative); Epithelial Cells Few HPF (Negative); Mucus Moderate (Negative); WBC 0-2 HPF (0-5)
[2024-10-11] MEDS: Normal Saline - Diluent 50 ML VIAL IJ (11:33)
[2024-10-11 11:34] LABS: C & S Indicated? No; Casts 0-2 Hyaline LPF (Negative)
[2024-10-11] MEDS: Omnipaque 350 MG/ML 100 ML BTL IJ (11:37)
[2024-10-11 11:38] LABS: ALT 43 U/L (14-59); AST 16 U/L (15-37); Albumin 3.8 g/dL (3.4-5.0); Alkaline Phosphatase 71 U/L (46-116); Anion Gap 6.1 mmol/L (3-11); BUN 14 mg/dL (7-18); CO2 30.9 mmol/L (21.0-32.0); Calcium 9.4 mg/dL (8.5-10.1); Chloride 102 mmol/L (98-107); Estimated GFR 73.95 (mL/min/1.73m2); Glucose 90 mg/dL (74-106); Magnesium 2.3 mg/dL (1.8-2.4); Sodium 139 mmol/L (136-145); TSH (W/Ref FT4) 1.84 uIU/mL (0.36-3.74); Total Protein 7.9 g/dL (6.4-8.2)
--- NOTE | 2024-10-11 11:39 | DI.CT_ITS ---
Exam(s) CT HEAD WO/W EXAM: CT HEAD WO/W CLINICAL HISTORY: Eval pituitary tumor. TECHNIQUE: Imaging Protocol: Axial computed tomography images with coronal and sagittal reformatted images were created and reviewed. CONTRAST MATERIAL: Intravenous: Omnipaque 350 Contrast volume:100 ml COMPARISON: CT CT HEAD WO from 01/31/2023 FINDINGS: Ventricles and Extra axial spaces: Normal in size and morphology for the patient's age. Hemorrhage: None. Cerebral parenchyma: Normal. Enhancement: No suspicious enhancement. Midline shift: None. Brainstem/Cerebellum: Normal. Calvarium: Normal. Visualized Paranasal sinuses: Mucous retention noted in right sphenoid. Postsurgical changes to the floor of the sphenoid sinus related to resection of pituitary tumor. Mild mucosal thickening of the maxillary sinuses. No evidence of recurrence pituitary tumor. Mastoids: Clear. IMPRESSION: Postsurgical changes to the sella and sphenoid sinuses. Summary mucous retention retention in the ri ght sphenoid sinus. No evidence of recurrence of a pituitary mass. The remainder of these emanation is normal. RADIATION DOSE DELIVERED: Total DLP DATA REPOSITORY: All CT scans at this facility are submitted to the National Radiology Data Registry (NRDR) Dose Index Registry (DIR) with the [employer] ([employer]). RADIATION OPTIMIZATION: All CT scans at this facility use at least one of these dose optimization te chniques: automated exposure control; mA and/or kV adjustment per patient size (includes targeted exa ms where dose is matched to clinical indication); or iterative reconstruction.
--- NOTE | 2024-10-11 11:50 | DI.VRAD_ITS ---
PROCEDURE INFORMATION: Exam: CT Head With Contrast Exam date and time: 10/11/2024 11:28 AM Age: 39 years old Clinical indication: Numbness / parasthesia and other: Tingling; Prior surgery; Surgery date: 6+ months; Surgery type: Removal pituatary tumor x's 2. 10yrs, 2 yrs ago; Additional info: HX pituarary tumor -surgery twice to remove tumor 10yrs and 2 yrs ago. Symptoms reoccuring - hand and facial numbness/tingling TECHNIQUE: Imaging protocol: Computed tomography of the head with intravenous contrast. Radiation optimization: All CT scans at this facility use at least one of these dose optimization techniques: automated exposure control; mA and/or kV adjustment per patient size (includes targeted exams where dose is matched to clinical indication); or iterative reconstruction. Contrast material: OMNI 350; Contrast volume: 100 ml; Contrast route: INTRAVENOUS (IV); COMPARISON: CT HEAD WO 01/31/2023 11:31 AM FINDINGS: Brain: Unremarkable white matter. No mass effect. No abnormal enhancing lesions. Cerebral ventricles: Unremarkable. No ventriculomegaly. Bones/joints: Unremarkable. No acute fracture. Paranasal sinuses: Surgical changes of prior transsphenoidal pituitary mass resection. Mastoid air cells: Visualized mastoid air cells are well aerated. Soft tissues: Unremarkable. IMPRESSION: 1. No large territorial infarct or intracranial bleed. 2. Stable postsurgical changes of pituitary mass resection with no enlarging enhancing soft tissue lesion. Dictated and Authenticated by: Rito Vaz MD. Orderin [facility]. Gagandeep Leonard MD
[2024-10-11] MEDS: Potassium Chloride 20 MEQ TABCR 40 MEQ PO (12:13)
[2024-10-11 12:15] VITALS: BP 125/86; PULSE 76; RESP 16; O2SAT 97
[2024-10-11 14:25] VITALS: BP 138/94; PULSE 75; RESP 16; O2SAT 98
[2024-10-11 23:26] LABS: Estradiol 40 pg/mL (See Note)
[2024-10-13 09:52] LABS: FSH 6.2 mIU/mL (See Note); LH 2.3 mIU/mL (See Note); Prolactin 4.1 ng/mL (See Note)
== END 2024-10-11 14:34 | disposition short-term general hospital (02) ==
PROVIDERS: Emergency Provider Emergency Medicine; PCP Family Medicine
DX: R20.0 Anesthesia of skin (principal); Z86.018 Personal history of other benign neoplasm
CPT/HCPCS: 80053; 81025; 82533; 99285; 70470; 81003; 81015; 82670; 83001; 83002; 83735; 84146; 84443; 85025; J3490